=== PATIENT | female | born 1975 | race Caucasian/White ===

== ENCOUNTER 2024-05-14 09:19 | Outpatient (OUT) | payer MEDICAID, SELFPAY ==
--- NOTE | 2024-05-14 09:37 | XR_ITS ---
The [address] [address] Patient Name: TRESSA FLOREZ MRN: [id number] date: 1975 Sex: F Assigned Patient Location: [facility] Current Patient Location: Accession/Order Number: [id number] Exam Date: 05/14/2024 09:40 Report Date: 05/15/2024 07:19 At the request of: DAWIT BLANCHARD Procedure: XR shoulder LT min 2V PROCEDURE: XR shoulder LT min 2V COMPARISON: None. HISTORY: Left Shoulder Pain FINDINGS: BONES:No fracture, acute abnormality, or significant arthropathy. SOFT TISSUES:Negative. No visible soft tissue swelling. EFFUSION:None visible. OTHER: Negative. XR/XR shoulder LT min 2V IMPRESSION: No acute radiographic abnormality Electronically authenticated by: ALEXEY CARNEY Date: 05/15/2024 07:19
== END 2024-05-14 09:20 | disposition home or self-care (01) ==
LOC: RAD 09:24
PROVIDERS: PCP Family Medicine; Visit Provider Nurse Practitioner Family
DX: M25.512 Pain in left shoulder (principal)
CPT/HCPCS: 73030

== ENCOUNTER 2025-05-31 14:58 | Emergency (ER) | payer MEDICAID, SELFPAY ==
--- OUTSIDE RECORDS SUMMARY | 2024-06-09 04:00 | XMS_ITS ---
Author Organization [facility] Address [address] [place] [address] Care Team Providers Care Dragger Name Role Phone Otis Torres Primary Care Provider Corie Bowers Unavailable [phone] REASON FOR VISIT PERIO MAINT Encounters Encounter Location Date Provider Diagnosis [place] [address] [place] [address] 06/09/2024 Corie Bowers Plan Of Treatment Next Appt Details Provider Name:Riya Levine , 07/23/2025 09:40:00 AM, [address], [place], [address], Progress Notes * TRESSA FLOREZ RDOB: [birth year] (49 yo F)Acc No.[id number]:06/09/2024 Patient:?TRESSA FLOREZ :?Corie GoldDOB:1975???Age:48 Y???Sex: FemaleDate:06/09/2024Phone:[phone]:[address] [place], [place]-[address]Pcp:Otis Torres Subjective: * Chief Complaints: * P ERIO MAINT * Electronic signature of Corie Bowers on 05/31/2025 at 03:49 PM ESTSign off status: Pending * Provider: Abhijeet Gold Date: 0 06/09/2024 Generated for Printing/Faxing/eTransmitting on:?05/31/2025 03:49 PM EST
--- OUTSIDE RECORDS SUMMARY | 2025-03-12 04:30 | XMS_ITS ---
Author Organization [facility] Address [address] [place] [address] Care Team Providers Care Barrel Ribs Solderer Name Role Phone Otis Torres Primary Care Provider Cass Brown Unavailable Unavailable REASON FOR VISIT 45 APRO Encounters Encounter Location Date Provider Diagnosis [facility] [address] [place] [address] 03/12/2025 Cass Brown Plan Of Treatment Next Appt Details Provider Name:Riya Levine , 07/23/2025 09:40:00 AM, [address], [place], [address], Progress Notes * TRESSA FLOREZ RDOB: [birth year] (49 yo F)Acc No.[id number]:03/12/2025 Patient:?TRESSA FLOREZ :?Cass KevinDOB:1975???Age:49 Y???Sex: FemaleDate:03/12/2025Phone:[phone]:[address] [place], [place]Why:Otis Torres Subjective: * Chief Complaints: * 4 5 APRO * Electronic signature of Cass Brown on 05/31/2025 at 03:49 PM ESTSign off status: Pending * Provider: Monique Brown Date: Generated for Printing/Faxing/eTransmitting on:?05/31/2025 03:49 PM EST
--- OUTSIDE RECORDS SUMMARY | 2025-04-02 10:30 | XMS_ITS ---
Author Organization [facility] Address [address] [place] [address] Care Team Providers Care Curriculum Coordinator Name Role Phone Otis Torres Primary Care Provider [phone] Cass Artis Unavailable Unavailable REASON FOR VISIT PROPHY EX and BW Encounters Encounter Location Date Provider Diagnosis [facility] [address] [place] [address] 04/02/2025 Cass Brown Plan Of Treatment Next Appt Details Provider Name:Riya Levine , 07/23/2025 09:40:00 AM, [address], [place], [address], Progress Notes * TRESSA FLOREZ RDOB: [birth year] (49 yo F)Acc No.[id number]:04/02/2025 Patient:?TRESSA FLOREZ :?Cass KevinDOB:1975???Age:49 Y???Sex: FemaleDate:04/02/2025Phone:[phone]:[address] [place], [place]-[address]Pcp:Otis Torres Subjective: * Chief Complaints: * P ROPHY EX and BW * Electronic signature of Cass Kevin on 05/31/2025 at 03:49 PM ESTSign off status: Pending * Provider: Monique Brown Date: Generated for Printing/Faxing/eTransmitting on:?05/31/2025 03:49 PM EST
--- OUTSIDE RECORDS SUMMARY | 2025-05-28 10:00 | XMS_ITS | Encounter Summary ---
Author Organization [facility] Address [address] [place] [address] Care Team Providers Care Wharf Tender Head Name Role Phone Randy Rome MD Primary Care Provider Unavail able Reason for Visit * Imaging (Routine) - ClosedSpecialtyDiagnoses / ProceduresReferred By Contact Referred To ContactRadiology Diagnoses Neck pain Cervical radiculopathy DDD (degenerative disc disease), cervical Procedures MR cervical spine wo contrast Alexander Krishnan, DO [address] [place] [address] Phone: tel: fax: [facility] [address] [place] [address] Phone: tel: fax: Referral IDStatusReasonStart DateExpiration DateVisits RequestedVisits [id number]/8/20256/ Encounter Details DateTypeDepartmentCare Team (Latest Contact Info)Yhsjeknogjp95/26/2025 10:00 AM ESTAncillary Procedure [facility] [address] [place] [address] Neck pain; Cervical radiculopathy; DDD (degenerative disc disease), cervical Social History Tobacco UseTypesPacks/DayYears UsedDateSmoking Tobacco: FormerCigarettes Smokeless Tobacco: NeverAlcohol UseStandard Drinks/WeekCommentsYes0 (1 standard drink = 0.6 oz pure alcohol)CommentsUnknownSex and Gender Information ValueDate RecordedSex Assigned at BirthNot on fileLegal KqaIofxov87/15/2023 7:13 PM EDTGender IdentityNot on fileSexual OrientationNot on filedocumented as of this encounter Plan of Treatment DateTypeDepartmentCare Team (Latest Contact Info)Udfdvxdhwcp49/02/2026 9:45 AM ESTOffice Visit [facility] [address] [place] [address] Alexander Krishnan, DO [address] [place] [address] documented as of this encounter Procedures Procedure NamePriorityDate/TimeAssociated DiagnosisCommentsMR CERVICAL SPINE WO BXNCFYKPPzosntm32/26/2025 10:33 AM EST Neck pain Cervical radiculopathy DDD (degenerative disc disease), cervical documented in this encounter Results * MR cervical spine wo contrast (05/28/2025 10:33 AM EST)Anatomical Region LateralityModalitySpine, C-spineMagnetic ResonanceSpecimen (Source)Anatomical Location / LateralityCollection Method / VolumeCollection TimeReceived Time 05/31/2025 11:52 AM EST Impressions 05/31/2025 12:00 PM EST Degenerative changes cervical spine as discussed. ?? Disc protrusion right foraminal region at C6-C7 with moderate right foraminal narrowing. ELECTRONICALLY SIGNED BY: Shawn Butt MD Narrative 05/31/2025 12:00 PM EST EXAMINATION/TECHNIQUE: MR CERVICAL SPINE WO CONTRAST HISTORY: ?? Neck pain. Right radiculopathy. COMPARISON: Radiographs 03/19/2025. RESULT: Counting reference: ??Craniocervical junction. Alignment: ?? Straightening of the cervical lordosis. Bone marrow signal/fracture: ?No evidence for recent fracture. No pathologic marrow infiltration. Craniocervical junction: ?Craniocervical junction is unremarkable. Cord: ??The cervical spinal cord is within normal limits of signal intensity and morphology. Cervical soft tissues: ?? The paraspinal soft tissues are unremarkable. C2-C3: Disc bulge. No significant canal or foraminal narrowing. C3-C4: Disc bulge. Facet/uncovertebral degenerative changes. Mild left foraminal narrowing without significant canal or right foraminal narrowing. C4-C5: Disc bulge. Endplate osteophytes. Facet/uncovertebral degenerative changes. Mild bilateral foraminal narrowing and mild canal narrowing. C5-C6: Disc bulge. Endplate osteophytes. Facet/uncovertebral degenerative changes. Mild to moderatebilateral foraminal narrowing and mild canal narrowing C6-C7: Disc bulge. Superimposed disc protrusion in the right foraminal region. Endplate osteophytes. Facet/uncovertebral degenerative changes. Moderate right and mild to moderate left foraminal narrowing with mild to moderate canal narrowing. C7-T1: Disc bulge. Possible small central zone protrusion. Endplate osteophytes. Facet/uncovertebral degenerative changes. Mild to moderate left foraminal narrowing, mild right foraminal narrowing, mild canal narrowing. Upper thoracic spine: Partially imaged degenerative changes. Procedure Note Shawn Butt MD - 05/31/2025 EXAMINATION/TECHNIQUE: MR CERVICAL SPINE WO CONTRAST HISTORY: Neck pain. Right radiculopathy. COMPARISON: Radiographs 03/19/2025. RESULT: Counting reference: Craniocervical junction. Alignment: Straightening of the cervical lordosis. Bone marrow signal/fracture: No evidence for recent fracture. Nopathologic marrow infiltration. Craniocervical junction: Craniocervical junction is unremarkable. Cord: The cervical spinal cord is within normal limits of signalintensity and morphology. Cervical soft tissues: The paraspinal soft tissues are unremarkable. C2-C3: Disc bulge. No significant canal or foraminal narrowing. C3-C4: Disc bulge. Facet/uncovertebral degenerative changes. Mild leftforaminal narrowing without significant canal or right foraminalnarrowing. C4-C5: Disc bulge. Endplate osteophytes. Facet/uncovertebral degenerative changes. Mild bilateral foraminal narrowing and mild canal narrowing. C5-C6: Disc bulge. Endplate osteophytes. Facet/uncovertebral degenerative changes. Mild to moderate bilateral foraminal narrowing and mild canalnarrowing C6-C7: Disc bulge. Superimposed disc protrusion in the right foraminalregion. Endplate osteophytes. Facet/uncovertebral degenerative changes.Moderate right and mild to moderate left foraminal narrowing with mild tomoderate canal narrowing. C7-T1: Disc bulge. Possible small central zone protrusion. Endplateosteophytes. Facet/uncovertebral degenerative changes. Mild to moderateleft foraminal narrowing, mild right foraminal narrowing, mild canalnarrowing. Upper thoracic spine: Partially imaged degenerative changes. IMPRESSION: Degenerative changes cervical spine as discussed. Disc protrusion right foraminal region at C6-C7 with moderate rightforaminal narrowing. ELECTRONICALLY SIGNED BY: Shawn Butt MD Authorizing ProviderResult TypeResult StatusDavid A Pocos DOIMG MRI PROCEDURES Final Result documented in this encounter Visit Diagnoses Diagnosis Neck pain Cervicalgia Cervical radiculopathy Brachial neuritis or radiculitis nos DDD (degenerative disc disease), cervical Degeneration of cervical intervertebral disc documented in this encounter Care Teams Team MemberRelationshipSpecialtyStart DateEnd Date Randy Rome MD [address] [address] PCP - GeneralFamily Vtdyhsqc17/5/25documented as of this encounter
[2025-05-31 15:04] VITALS: BP 142/95; PULSE 97; TEMP 36.9; O2SAT 96; BMI 45.2
[2025-05-31 15:34] LABS: Glucose Urine UA NEGATIVE (NEGATIVE)
[2025-05-31 15:35] LABS: HCG Qualitative Urine* NEGATIVE (NEGATIVE)
--- OUTSIDE RECORDS SUMMARY | 2025-05-31 15:49 | XMS_ITS | Encounter Summary ---
Author Organization [facility] Address [address] [facility] [place] [address] Care Team Providers Care Vascular Sonographer Name Role Phone Randy Rome MD Primary Care Provider Unavail able Encounter Details DateTypeDepartmentCare Team (Latest Contact Info)Mtkvvcbseqh14/26/2025Travel Social History Tobacco UseTypesPacks/DayYears UsedDateSmoking Tobacco: FormerCigarettes Smokeless Tobacco: NeverAlcohol UseStandard Drinks/WeekCommentsYes0 (1 standard drink = 0.6 oz pure alcohol)CommentsUnknownSex and Gender Information ValueDate RecordedSex Assigned at BirthNot on fileLegal BknAnhvwe29/15/2023 7:13 PM EDTGender IdentityNot on fileSexual OrientationNot on filedocumented as of this encounter Plan of Treatment DateTypeDepartmentCare Team (Latest Contact Info)Rdmelksmgeu93/02/2026 9:45 AM ESTOffice Visit [facility] [address] [facility] [address] [place] [address] Alexander Krishnan DO [address] [place] [address] documented as of this encounter Visit Diagnoses Not on filedocumented in this encounter Care Teams Team MemberRelationshipSpecialtyStart DateEnd Date Randy Rome MD [address] [address] PCP - GeneralFamily Kqlhapzm83/5/25documented as of this encounter
--- OUTSIDE RECORDS SUMMARY | 2025-05-31 15:49 | XMS_ITS | Clinical Summary ---
Author Organization [facility] Address [address], [address] [place] [address] Care Team Providers Care Private Branch Exchange Operator Name Role Phone Juan Fernando MD Primary Care Provider [phone] Allergies No known active allergies Medications MedicationSigDispense QuantityRefillsLast FilledStart DateEnd DateStatus levothyroxine (SYNTHROID) 175 MCG tablet Take 175 mcg by mouth DailyActive loratadine (CLARITIN) 10 MG tablet Take 10 mg by mouth dailyActive ibuprofen (ADVIL;MOTRIN) 200 MG tablet Take 400 mg by mouth every 6 hours as needed for PainActive Active Problems ProblemNoted DateDiagnosed DateHistory of tobacco use03/08/2020Obesity (BMI 35.0-39.9 without comorbidity)02/01/2020Other specified wuwxrlmzilcdkk54/31/2020 Essential ojutkpaibeuh88/31/2020 Overview (02/01/2020): Not currently requiring treatment following intentional weight loss. Resolved Problems ProblemNoted DateDiagnosed DateResolved DatePostoperative follow-up03/16/2020 05/06/2020Recurrent ventral etjaah89Recurrent incisional kpxpzo50Tobacco use Family History Medical HistoryRelationNameCommentsDiabetesFatherHeart DiseaseFatherHigh Blood PressureMotherRelationNameStatusCommentsFatherAliveMotherAlive Social History Tobacco UseTypesPacks/DayYears UsedDateSmoking Tobacco: FormerCigarettesQuit: 02/21/2020Smokeless Tobacco: NeverAlcohol UseStandard Drinks/WeekCommentsYes0 (1 standard drink = 0.6 oz pure alcohol)RareAUDIT-CAnswerDate RecordedQ1: How often do you have a drink containing alcohol?Never02/01/2020Average Number of Drinks Not on file02/01/2020Frequency of Binge DrinkingNot on file02/01/2020 CommentsNoSex and Gender InformationValueDate RecordedSex Assigned at BirthNot on fileLegal EjvYqmetw90/24/2020 1:04 PM EDTGender IdentityNot on fileSexual OrientationNot on file Last Filed Vital Signs Vital SignReadingTime TakenCommentsBlood Evrgzvzw086/7504/06/2020 2:03 PM EST Bfusq135004/06/2020 2:03 PM CBOMbltnxpzgpg73.7 ??C (71 ??F)03/16/2020 3:46 PM EDT Respiratory Xvat6162 11:29 AM EDTOxygen Hqmyfywljz16%04/06/2020 2:03 PM ESTInhaled Oxygen Concentration--Uxuhvu606.2 kg (243 lb)04/06/2020 2:03 PM EST Srhodg152.3 cm (5' 9 )04/06/2020 2:03 PM ESTBody Mass Index35.8804/06/2020 2:03 PM EST Plan of Treatment Not on file Medical Devices ImplantedTypeAreaManufacturerDevice IdentifierShelf Expiration DateModel / Serial / LotMesh Surg Hernia Repair 30 Cm Inguinal Macroporous Open Implanted:Qty: 1 on 03/10/2020 [facility]/A: AbdomenMEDTRONIC [facility]-PM07/31/[id number] / / [id number] Insurance Advance Directives * Full Code (Latest Code Status on File) Date ActivatedDate ZzpbfdinexxEsizdfvt12/8/2020 12:07 03/11/2020 4:44 PM Care Teams Team MemberRelationshipSpecialtyStart DateEnd Date Juan Fernando MD PCP - General02/01/20
--- OUTSIDE RECORDS SUMMARY | 2025-05-31 15:49 | XMS_ITS | Clinical Summary ---
Author Organization [facility] Address [address] [place] [address] Care Team Providers Care Application Lead Name Role Phone Randy Rome MD Primary Care Provider Unavail able Allergies No known active allergies Medications MedicationSigDispense QuantityRefillsLast FilledStart DateEnd DateStatus levothyroxine (Synthroid, Levoxyl) 175 MCG tablet Take 175 mcg by mouth DailyActive omega-3 (fish oil) 1000 MG capsule Take 1 capsule by mouth Daily5Active loratadine (Claritin) 10 MG tablet Take 10 mg by mouth DailyActive VITAMIN D PO Take by mouthActive Ascorbic Acid (vitamin C) 250 MG tablet Take 250 mg by mouth DailyActive BABY ASPIRIN PO Take by mouthActive magnesium 30 MG tablet Take 30 mg by mouth in the morning and 30 mg before bedtime.Active cyanocobalamin (Vitamin B-12) 100 MCG tablet Take 100 mcg by mouth DailyActive DULoxetine (Cymbalta) [address] capsule Take 60 mg by mouth Daily Do not crush or chew.Active Active Problems No known active problems Encounters DateTypeDepartmentCare AnqmVgjppgpvnrg23/26/2025 10:00 AM ESTAncillary Procedure [facility] [address] [address] Neck pain; Cervical radiculopathy; DDD (degenerative disc disease), ukqjzxxk25/26/1876Bzzyqz16/05/2025 1:30 PM EST Office Visit [facility] [address] [place] [phone] Alexander Krishnan DO Impingement syndrome of right shoulder (Primary Dx); Neck pain; Cervical qbsfsdjpynwzl32/05/2025 8:00 AM ESTTreatment [facility] [address] [facility] [address] [place] [address] Kelbley, Caitlyn, REPAIRER SASH AND DOOR Impingement syndrome of right shoulder (Primary Dx); Neck pain; Radiculopathy, /05/2025amboo flowsheet [facility] [address] [facility] [address] [place] [address] Kelbley, Caitlyn, REPAIRER SASH AND DOOR 05/07/20256055Gfxnsb55/03/2025 8:30 AM ESTTreatment [facility] [address] [facility] [address] [place] [address] Brpaula, Gold, REPAIRER SASH AND DOOR Impingement syndrome of right shoulder (Primary Dx); Neck pain; Radiculopathy, fsixjimc76/03/2025amboo flowsheet [facility] [address] [facility] [address] [place] [address] BrGold mitchell, REPAIRER SASH AND DOOR 05/05/20251678Tajshv73/26/2025 9:00 AM ESTTreatment [facility] [address] [facility] [address] [place] [address] Kelbley, Caitlyn, REPAIRER SASH AND DOOR Impingement syndrome of right shoulder (Primary Dx); Neck pain; Radiculopathy, vlrtepct13/26/2025amboo flowsheet [facility] [address] [facility] [address] [place] [address] Rhysbley, Caitlyn, REPAIRER SASH AND DOOR 04/28/20256780Azreva58/21/2025 11:30 AM ESTTreatment [facility] [address] [facility] [address] [place] [address] Gold Ansari, REPAIRER SASH AND DOOR Impingement syndrome of right shoulder (Primary Dx); Neck pain; Radiculopathy, jzrvyyeq53/21/2025amboo flowsheet [facility] [address] [facility] [address] [place] [address] Gold Ansari, REPAIRER SASH AND DOOR 04/23/20254662Podidg09/19/2025 8:00 AM ESTTreatment [facility] [address] [facility] [address] [place] [address] Gold Ansari, REPAIRER SASH AND DOOR Impingement syndrome of right shoulder (Primary Dx); Neck pain; Radiculopathy, /19/2025amboo flowsheet [facility] [address] [facility] [address] [place] [address] Gold Ansari, REPAIRER SASH AND DOOR 04/21/20252978Dylowj78/14/2025 11:30 AM ESTTreatment [facility] [address] [facility] [address] [place] [address] Gold Ansari, REPAIRER SASH AND DOOR Impingement syndrome of right shoulder (Primary Dx); Neck pain; Radiculopathy, xzhnizne02/14/2025 9:30 AM ESTOffice Visit [facility] [address] [place] [address] Alexander Krishnan, DO Cervical radiculopathy (Primary Dx); Morbid obesity (CMS-HCC); Impingement syndrome of right htzfwisr44/14/2025 flowsheet [facility] [address] [place] [address] Alexander Krishnan, 04/16/20250254Zcwzgk00/07/2025 10:30 AM ESTTreatment [facility] [address] [facility] [address] [place] [address] Pat Escoto, EVITA Impingement syndrome of right shoulder (Primary Dx); Neck pain; Radiculopathy, /07/2025amboo flowsheet [facility] [address] [facility] [address] [place] [address] Pat Escoto, REPAIRER SASH AND DOOR 04/09/20259020Qrbjbo76/04/2025 10:00 AM ESTEvaluation [facility] [address] [facility] [address] [place] [address] Yvette Manley, PT Impingement syndrome of right shoulder (Primary Dx); Neck pain; Radiculopathy, owmnwmui60/04/2025Plan of Care Documentation [facility] [address] [facility] [address] [place] [address] 04/06/2025amboo flowsheet [facility] [address] [facility] [address] [place] [address] Yvette Manley PT 04/06/20251360Bxrlji78/17/2025 9:00 AM EDTAncillary Procedure [facility] [address] [place] [address] 03/19/2025 9:00 AM EDTOffice Visit [facility] [address] [place] [address] Alexander Krishnan DO Impingement syndrome of right shoulder (Primary Dx); Neck pain; Cervical radiculopathy; DDD (degenerative disc disease), cervical; Morbid obesity ([facility]-HCC)03/19/2025 8:00 AM EDTAncillary Procedure [facility] [address] [place] [address] 03/19/2025Travelfrom Last 3 Months Family History Medical HistoryRelationNameCommentsHeart diseaseFatherDiabetesMotherRelationName StatusCommentsFatherDeceasedMaternal GrandfatherDeceasedMaternal Grandmother DeceasedMotherAlive Social History Tobacco UseTypesPacks/DayYears UsedDateSmoking Tobacco: FormerCigarettes Smokeless Tobacco: Never Tobacco Cessation:Counseling Given: Not Answered Alcohol UseStandard Drinks/WeekCommentsYes0 (1 standard drink = 0.6 oz pure alcohol)CommentsUnknownSex and Gender InformationValueDate RecordedSex Assigned at BirthNot on fileLegal KdoQhsxid41/15/2023 7:13 PM EDTGender Identity Not on fileSexual OrientationNot on file Last Filed Vital Signs Vital SignReadingTime TakenCommentsBlood Ujkbdakc273/8408 12:00 PM EDT Pulse--Temperature--Respiratory Rate--Oxygen Saturation--Inhaled Oxygen Concentration--Culbna281 kg (302 lb)05/07/2025 1:16 PM BXVNskiac483.8 cm (5' 10 )05/07/2025 1:16 PM ESTBody Mass Index43.33107/08/2024 1:16 PM EST Plan of Treatment DateTypeDepartmentCare Team (Latest Contact Info)Yrccolztskd53/02/2026 9:45 AM ESTOffice Visit [facility] [address] [place] [address] Alexander Krishnan, [address] [place] [address] Health MaintenanceDue DateLast DoneCommentsCT Pbbmzohczljq67/13/1976FIT-DNA 1975FIT1975FOBT1975 4146Zezsoqqlduxev42/13/1976Pap Smear12/13/1996 Cervical Cancer Wuzogelgz49/13/2006HPV/Famwls2612/13/20050722Xvfxhsonl01/13/2016 Influenza Vaccine (#1)6950Blhqanlczyv904Colorectal Cancer Icoonnyzo85/23/2034Pneumococcal Vaccine: Pediatrics (0 to 5 Years) and At-Risk Patients (6 to 64 Years)Aged OutNo longer eligible based on patient's age to complete this topic Procedures Procedure NamePriorityDate/TimeAssociated DiagnosisCommentsMR CERVICAL SPINE WO DSNKYCHJPcqnrxn34/26/2025 10:33 AM EST Neck pain Cervical radiculopathy DDD (degenerative disc disease), cervical XR CERVICAL SPINE 2-3 ZILMHAyykzqj38/17/2025 8:55 AM EDT Neck pain XR SHOULDER 2+ VIEWS MCJCLRtnjvgp38/17/2025 7:49 AM EDT Impingement syndrome of right shoulder from Last 3 Months Results * MR cervical spine wo contrast [...] MD Authorizing ProviderResult TypeResult StatusDavid A Pocos [facility] PROCEDURES Final Result * XR cervical spine 2 or 3 views (03/19/2025 8:55 AM EDT)Anatomical Region LateralityModalitySpine, C-spineRadiographic ImagingSpecimen (Source) Anatomical Location / LateralityCollection Method / VolumeCollection Time Received Time Narrative 03/22/2025 1:10 PM EDT Imaging Result: Examination of the x-rays AP, lateral of the cervical spine, total of two views with permanent images are saved to the record does show rather significant degenerative disc change at C6-7. ?No evidence of fracture. ? Authorizing ProviderResult TypeResult StatusDavid A Pocos DOIMG XR PROCEDURES Final Result * XR shoulder 2+ views right (03/19/2025 7:49 AM EDT)Anatomical RegionLaterality ModalityUpper Extremities, ShoulderRightRadiographic ImagingSpecimen (Source) Anatomical Location / LateralityCollection Method / VolumeCollection Time Received Time Narrative 03/22/2025 1:10 PM EDT Imaging Result: X-rays of the shoulder AP and lateral total of two views with permanent images are saved to the record does show evidence of mild osteoarthritis. ?? The acromiohumeral interval is well maintained. ?? Authorizing ProviderResult TypeResult StatusDavid A Pocos DOIMG XR PROCEDURES Final Result from Last 3 Months Insurance Care Teams Team MemberRelationshipSpecialtyStart DateEnd Date Randy Rome MD [address] [place] [address] [facility]
--- OUTSIDE RECORDS SUMMARY | 2025-05-31 15:49 | XMS_ITS | Patient Health Record ---
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 Name Role Phone Otis Torres Primary Care Provider [phone] Cass Brown Unavailable Unavailable Sanam Horvath Unavailable Corie Bowers Unavailable [phone] Reason For Referral No Information Encounters Encounter Location Date Provider Diagnosis [facility] [address] [address] 11/05/2024 Sanam Pickens [facility] [address] [place] [address]/28/2025erma Bowers Encounter for dental examination and cleaning with abnormal findings Z01.21 and Other dental procedure status Z98.818 Assessments Encounter Date Diagnosis (ICD Code) Assessment Notes Treatment Notes Treatment Clinical Notes Section Notes 08/28/2024 Encounter for dental examination and cleaning with abnormal findings (ICD-10 - Z01.21) 08/28/2024Other dental procedure status (ICD-10 - Z98.818) Plan Of Treatment Next Appt Details Provider Name:Riya Levine , 07/23/2025 09:40:00 AM, [address], [address], Insurance Providers Payer Name Payer Address Payer Phone Subscriber Number Group Number Insured Name Patient Relationship to Insured Coverage Start Date Coverage End Date Dental [employer] DQ [address] [place] [address] [phone] [id number], MONICASelf - patient is the /06/2023 Dental Wrap [facility] HumanaPO [address] [place] [phone] [id number] FLOREZ - patient is the [id number] 2023
[2025-05-31 15:54] LABS: Cast Seen? NONE SEEN #/LPF (NONE SEEN); Crystals Seen? None Seen #/HPF (None Seen); Urine Culture Indicated YES-FRMC
--- NOTE | 2025-05-31 16:03 | ED_ITS ---
HPI HPI - General Adult General Chief complaint: Abdominal Pain Stated complaint: ABDOMINAL & BACK PAIN, FEVER, PAIN WHEN URINATES Time Seen by Provider: 05/31/25 15:55 Source: patient Mode of arrival: walk-in Limitations: no limitations History of Present Illness HPI narrative: 49-year-old female presenting for dysuria and frequency. Her lower back has been hurting in the midline without any injury. No fever or gross hematuria. She went to an urgent care who asked her to come here to get checked. She has no history of kidney stone. Related Data Previous Rx's ?Medication ?Instructions ?Recorded cephalexin 500 mg capsule 500 mg PO TID 7 days #21 cap s 05/31/25 phenazopyridine 200 mg tablet 200 mg PO Q8H PRN pain # 15 tabs 05/31/25 (Pyridium) Allergies Allergy/AdvReac Type Severity Reaction Status Date / Time No Known Drug Allergies Allergy Verified 05/31/25 15:04 Opioid HPI Opioid Management Most Recent Opioid Data: Last Pain Scale 5 Today, 15:04 Review of Systems ROS Narrative A ten point review of systems is negative except as noted above. PFSH PFSH Social History Little interest or pleasure in doing things: not at all Feeling down, depressed, or hopeless: not at all Exam Narrative Exam Narrative: Nurses note and vital signs reviewed General:The patient appears well and in no apparent distress.Patient is resting comfortably on cart. Skin:Warm, dry, no pallor noted.There is no rash noted. Head:Normocephalic, atraumatic Eye: Normal conjunctiva, no drainage Ears, Nose, Mouth, and Throat: oral mucosa is moist. Nares patent. Cardiovascular:Regular Rate and Rhythm Respiratory:Patient is in no distress, no accessory muscle use, lungs are clear to auscultation, no wheezing, rales or rhonchi Back:non-tender, no CVA tenderness bilaterally to percussion. GI: Soft and nontender Musculoskeletal: The patient has no evidence of calf tenderness, no pitting edema, symmetrical pulses noted bilaterally Neurological:A&O, normal speech Psychiatric:Cooperative Constitutional Vital Signs, click to edit/add: Last Vital Signs Temp 98.4 F 05/31/25 15:04 Pulse 97 H 05/31/25 15:04 Resp 20 05/31/25 15:04 BP 142/95 H 05/31/25 15:04 Pulse Ox 96 05/31/25 15:04 O2 Del Method Room Air 05/31/25 15:04 Course Vital Signs Vital signs: Vital Signs Temperature 98.4 F 05/31/25 15:04 Pulse Rate 97 H 05/31/25 15:04 Respiratory Rate 20 05/31/25 15:04 Blood Pressure 142/95 H 05/31/25 15:04 Pulse Oximetry 96 05/31/25 15:04 Oxygen Delivery Method Room Air 05/31/25 15:04 Temperature 98.4 F 05/31/25 15:04 Pulse Rate 97 H 05/31/25 15:04 Respiratory Rate 20 05/31/25 15:04 Blood Pressure 142/95 H 05/31/25 15:04 Pulse Oximetry 96 05/31/25 15:04 Oxygen Delivery Method Room Air 05/31/25 15:04 Medical Decision Making MDM Narrative Medical decision making narrative: UTI is identified. She was started on Keflex and Pyridium here and prescribe same. Treatment diagnosis and follow-up were discussed with the patient. Have no clinical suspicion of pyelonephritis or kidney stone. Differential Diagnosis Differential Diagnosis: UTI, kidney stone, pyelonephritis Lab Data Lab results reviewed: Yes I reviewed the patient's lab results Labs: Lab Results 05/31/25 Range/Units 15:20 Urine Color Lt. yellow (YELLOW) Urine Clarity Sl cloudy (CLEAR) Urine pH 5.5 (5.0-9.0) Ur Specific Condon 1.020 (1.005-1.025) Urine Protein 30 A (NEG/TRACE) mg/dL Urine Glucose (UA) Negative (NEGATIVE) mg/dL Urine Ketones Negative (NEGATIVE) mg/dL Urine Occult Blood Moderate A (NEGATIVE) Urine Nitrite Positive A (NEGATIVE) Urine Bilirubin Negative (NEGATIVE) Urine Urobilinogen 0.2 (0.2-1.0) EU/dL Ur Leukocyte Esterase Large A (NEGATIVE) Urine RBC 10-20 A (0-2) #/HPF Urine WBC 75-100 A (NONE SEEN) #/HPF Ur Squamous Epith Cells Few A (NONE/RARE) #/LPF Urine Crystals None seen (None Seen) #/HPF Urine Bacteria Moderate A (NONE SEEN) #/HPF Urine Casts None seen (NONE SEEN) #/LPF Urine Mucus Trace A (NONE SEEN) Ur Culture Indicated? Yes-[facility] [place] Urine HCG, Qual Negative (NEGATIVE) Discharge Plan Discharge Chief Complaint: Abdominal Pain Clinical Impression: Urinary tract infection Patient Disposition: Home, Self-Care Time of Disposition Decision: 16:02 Condition: Good Mode of Transportation: Private Vehicle Prescriptions / Home Meds: New cephalexin 500 mg capsule 500 mg PO TID 7 Days Qty: 21 0RF phenazopyridine [Pyridium] 200 mg tablet 200 mg PO Q8H PRN (Reason: pain) Qty: 15 0RF Print Language: Amharic Instructions: Urinary Tract Infection in Women (ED) Referrals: LARA SANCHEZ [Primary Care Provider, Family Practice] - 1 week
[2025-05-31] MEDS: PHENAZOPYRIDINE 100 MG TABLET 200 MG PO (16:10)
[2025-05-31] MEDS: CEPHALEXIN 500 MG CAPSULE PO (16:10)
--- OUTSIDE RECORDS SUMMARY | 2025-05-31 16:36 | XMS_ITS | CCD ---
Author Organization [facility] Care Team Providers Care Rn Or Lpn Name Role Phone Lara Sanchez Primary Care Provider ALTHEA LING Referring Unavailable DANIEL, LARA Primary Care Unavailable ALTHEA LING Admitting Unavailable ALTHEA LING Attending Unavailable LARA SANCHEZ Primary Care Unavailable ALTHEA LING Referring Unavailable DANIEL, LARA Primary Care Unavailable SALLY VILLEGAS Referring Unavailable DANIEL LARA Primary Care Unavailable ALTHEA LING Referring Unavailable DANIEL LARA Primary Care Unavailable ALTHEA LING Referring Unavailable DANIEL, LARA Primary Care Unavailable ALTHEA LING Referring Unavailable ROSS, LARA Primary Care Unavailable DANIEL LARA Admitting Unavailable LARA SANCHEZ Attending Unavailable DANIEL, LARA Primary Care Unavailable DANIEL, LARA Primary Care Unavailable JIMMY, DR LOWRY Attending Unavailable JIMMY, DR LOWRY Consulting Unavailable JIMMY, DR LOWRY Admitting Unavailable Brent Liu Consulting Unavailable DANIEL, LARA Primary Care Unavailable LIANE, DR FERNANDO Danielle Consulting Unavailable DANIEL LARA Admitting Unavailable LARA SANCHEZ Attending Unavailable LARA SANCHEZ Consulting Unavailable Lara Sanchez Primary Care Physician NIKKO Walden Attending Provider [phone] Vikki Walden Unavailable Vikki Walden Attending Unavailable Vikki Walden Admitting Unavailable NO FAMILY, PHYSICIAN Primary Care Unavailable Lara Sanchez Primary Care Physician [phone] Lara Sanchez Primary Care Physician [phone] DAWIT BLANCHARD Attending Unavailable DAWIT BLANCHARD Admitting Unavailable CORBY BLANCHARD Attending UnavailCORBY Erazo Admitting UnavailCORBY Erazo Attending Unavailjennifer BLANCHARD, CORBY Owen Attending UnavailLara Higgins MD Primary Care Provider [phone] DAWIT BLANCHARD Attending Unavailable Judy, Perlita L Attending Unavailable Lara Sanchez. Attending Unavailable Lara Sanchez. Attending Unavailable SANTO, DAWIT Owen Admitting Unavailable SANTO, DAWIT Owen Attending Unavailable Judy, Perlita L Admitting Unavailable Judy, Perlita L Attending Unavailable Judy, Perlita L Admitting Unavailable Judy, Perlita L Attending Unavailable Lara Sanchez EJignesh Attending Unavailable Mouchli, Mohamad A. Referring Unavailable MouchliAbdifatah A. Attending Unavailable Abdifatah Sanchez A. Admitting Unavailable Lara Sanchez Attending Unavailable SANTO, DAWIT Owen Attending Unavailable SANTO, DAWIT Owen Attending Unavailable SANTO, DAWIT Owen Attending Unavailable POCOS, ALEXEY Owen Attending Unavailable LARA SANCHEZ Referring Unavailable BLACKSTONBEV Attending Unavailable POCOS, ALEXEY Owen Referring Unavailable BLACKSTONBEV T Attending Unavailable POCOS, ALEXEY Owen Referring Unavailable BRINKMORENO Attending Unavailable POCOS, ALEXEY Owen Referring Unavailable POCOS, ALEXEY Owen Attending Unavailable BRINK, MORENO Attending Unavailable POCOS, ALEXEY Owen Referring Unavailable KELBLEYCAITLYN Attending Unavailable POCOS, ALEXEY Owen Referring Unavailable BRINKMORENO Attending Unavailable POCOS, ALEXEY Owen Referring Unavailable BRINKMORENO Attending Unavailable POCOS, ALEXEY Owen Referring Unavailable BRINKMORENO Attending Unavailable POCOS, ALEXEY Owen Referring Unavailable BLACKSTONBEV Attending Unavailable POCOS, ALEXEY Owen Referring Unavailable KELBLEYCAITLYN Attending Unavailable POCOS, ALEXEY Owen Referring Unavailable KELCAITLYN BOOKER Attending Unavailable POCOS, ALEXEY Owen Referring Unavailable POCOS, ALEXEY Owen Referring Unavailable POCOS, ALEXEY Owen Attending Unavailable POCOS, ALEXEY Owen Referring Unavailable YVETTE MANLEY Attending Unavailable POCOS, ALEXEY Owen Referring Unavailable HUMA ESCOTO Attending Unavailable POCOS, ALEXEY Owen Referring Unavailable Allergies Allergy ClassificationReported Allergen(s)Allergy TypeDate of OnsetReaction(s) Facility (5 sources)No Known Medication Allergies; Translations: [No Known Medication Allergies]Propensity to adverse reactions (disorder)[facility] Repository Medications Current Medications MedicationDrug Class(es)DatesSig (Normalized)Sig (Original)acetaminophen 500 mg oral tablet (2 sources)Start: 05-09-2022 End: 61-22-6212luoo 1 tablet by mouth every six hours as needed for pain acetaminophen 500 mg Tab 500 mg = 1 tab(s), Oral, q6hr, take as needed for fever/pain, X 7 day(s), # 28 tab(s), Refills(s) 0, Pharmacy: [facility]/pharmacy #[id number], 178, cm, 05/09/22 15:08:00 EST, Height/Length Dosing, 122.5, kg, 05/09/22 15:08:00 EST, Weight Dosing Start Date: 05/09/22 Stop Date: 05/16/22 Status: OrderedStart: 01-01-1694vfla 1 dose by mouth four times mg, Oral, EVERY 6 HOURS SCHEDULED (4 times per day), First dose on [facility] 03/10/20 at 1215 Maximum d ose of acetaminophen is 4000 mg from all sources in 24 hours. Post-ynary852408 200 actuat albuterol 0.09 mg/actuat metered dose inhaler (1 source)beta2-Adrenergic AgonistStart: 07-67-5107vyoa 2 puff(s) by inhalation four times daily as neededAlbuterol Sulfate HFA 108 (90 Base) MCG/ACT 2 puffs Inhalation 4 times a day prn Apr, Activealuminum hydroxide 40 mg/ml / magnesium hydroxide 40 mg/ml / simethicone 4 mg/ml oral suspension (1 source)Start: 00-87-3561bxqtctyz & magnesium hydroxide-simethicone (MAALOX) 200-200-20 MG/5ML suspension 30 mLamoxicillin 875 mg / clavulanate 125 mg oral tablet (1 source)Penicillin-class AntibacterialStart: 67-36-1726cese 1 tablet by mouth every twelve hoursAmoxicillin-Pot Clavulanate 875-125 MG 1 tablet Orally every 12 hrs for 10 day(s) Apr, Activeascorbic acid 500 mg oral tablet (20 sources)Vitamin CStart: 18-99-4149lrbm 500 mg by mouth once dailyVitamin C 500 mg, Oral, Daily, Refills(s) 0, Prophylaxis Start Date: 02/06/24 Status: Ordered Repeat number: 1Start: 24-64-5456Xdpudzl C Daily, Refills(s) 0 Start Date: 02/06/24 Status: Orderedtake 1 tablet by mouth once dailyAscorbic Acid (vitamin C) 250 MG tablet Take 250 mg by mouth Daily Activeaspirin 81 mg delayed release oral tablet (20 sources)Platelet Aggregation Inhibitor, Nonsteroidal Anti-inflammatory Drug Start: 18-53-6436awxy 1 tablet by mouth once dailyaspirin 81 mg Oral EC Tab 81 mg = 1 tab(s), Oral, Daily, # 30 tab(s), Refills(s) 0, Prophylaxis Start Date: 04/11/22 Status: Ordered Quantity: 30.0 Unit: tab(s) Repeat number: 1BABY ASPIRIN PO Take by mouth ActiveAspirin 81 ActiveAzithromycin 3 Day Dose Pack 500 mg oral tablet (6 sources)Start: 82-88-4991Omfcmbiciafk 3 Day Dose Pack 500 mg oral tablet 500 mg = 1 tab(s), Oral, Daily, # 3 tab(s), Refills(s) 0, [id number] Start Date: 04/11/22 Status: Orderedbenzonatate 100 mg oral capsule (2 sources)Non-narcotic AntitussiveStart: 05-14-2024 End: 78-98-6906vdon 1 capsule by mouth three times dailyTessalon 100 mg Cap 100 mg = 1 cap(s), Oral, TID, X 7 day(s), # 21 cap(s), Refills(s) 0, [id number], cm, 05/14/24 8:08:00 EST, Height/Length Dosing, 135.9, kg, 05/14/24 8:08:00EST, Weight Dosing Start Date: 05/14/24 Stop Date: 05/21/24 Status: OrderedStart: 06-25-2022 End: 65-81-0126pfbz 1 capsule by mouth three times dailybenzonatate 200 mg oral capsule 200 mg = 1 cap(s), Oral, TID, X 7 day(s), # 21 cap(s), Refills(s) 0, Pharmacy: [facility]/pharmacy #[id number], 178, cm, 06/25/22 14:55:00 EST, Height/Length Dosing, 125.6, kg, 06/25/22 14:55:00 EST, Weight Dosing Start Date: 06/25/22 Stop Date: 07/02/22 Status: Kytoqfz89 hr dextromethorphan polistirex 6 mg/ml extended release suspension (1 source)Uncompetitive Y-kvpyvx-N-aspartate Receptor Antagonist, Sigma-1 AgonistStart: 05-09-2022 End: 64-75-5153eqeg 60 mg by mouth every twelve hoursDelsym 12 Hour Cough Relief 30 mg/5 mL oral suspension, extended release 60 mg = 10 mL, Oral, q12hr, X 7 day(s), # 140 mL, Refills(s) 0, Pharmacy: [facility]/pharmacy #[id number], 178, cm, 05/09/22 15:08:00 EST, Height/Length Dosing, 122.5, kg, 05/09/22 15:08:00 EST, Weight Dosing Start Date: 05/09/22 Stop Date:05/16/22 Status: Ordereddocosahexaenoic acid 120 mg / eicosapentaenoic acid 180 mg oral capsule (20 sources)Start: 70-35-8469uqfz 1 capsule by mouth once dailyomega-3 (fish oil) 1000 MG capsule Take 1 capsule by mouth Daily 06/11/2024 Active0.3 ml enoxaparin sodium 100 mg/ml prefilled syringe (1 source)Low Molecular Weight HeparinStart: 59-98-3207ykvmst 30 mg by subcutaneous injection twice daily, then inject 30 mg by subcutaneous injection twice daily30 mg, Subcutaneous, 2 TIMES DAILY, First dose on Sat03/11/20 at 0900 Patient weight is between 101-149kg. For prophylaxis with Enoxaparin, Pharmacy adjusted the dose to account for the patient's increased body weight in accordance with hospital approved protocol. The dose has been changed to 30mg BID. Post-opfamotidine 20 mg oral tablet (2 sources)Histamine-2 Receptor AntagonistStart: 77-44-2716yjcddabhmd (PEPCID) tablet 20 mgStart: 03-10-2020 End: 98-56-041271 mg, Intravenous, 2 TIMES DAILY, First dose on Sat03/10/20 at 1230 Administer over 2 minutes. Post-opFish Oils (2 sources)Start: 07-63-6285yafc 1 capsule by mouth once dailyOmega-3 Fish Oil 1000 mg oral capsule 1,000 mg = 1 cap(s), Oral, Daily, # 120 cap(s), Refills(s) 0,[id number], cm, 07/09/24 8:22:00 EST, Height/Length Dosing, 136.9, kg, 07/09/24 8:22:00 EST, Weight Dosing Start Date: 07/09/24 Status: Ordered Quantity: 120.0 Unit: cap(s) Repeat number: 112 hr guaiFENesin 600 mg extended release oral tablet (1 source)Start: 05-09-2022 End: 46-87-8506tqsc 1 tablet by mouth every twelve hoursguaiFENesin 600 mg ER Tab 600 mg = 1 tab(s), Oral, q12hr, X 10 day(s), # 20 tab(s), Refills(s) 0, Ph armacy: [facility]/pharmacy #[id number], 178, cm, 05/09/22 15:08:00 EST, Height/Length Dosing, 122.5, kg, 05/09/22 15:08:00 EST, Weight Dosing Start Date: 05/09/22 Stop Date: 05/19/22 Status: OrderedHYDROmorphone (DILAUDID) injection 0.25 mg (1 source)Start: 18-84-8587ICQHVmgfnwran (DILAUDID) injection 0.25 mgibuprofen 200 mg oral tablet (4 sources)Nonsteroidal Anti-inflammatory Drugtake 2 tablets by mouth every six hours as needed for painibuprofen (ADVIL;MOTRIN) 200 MG tablet Take 400 mg by mouth every 6 hours as needed for Pain 0 Activelevothyroxine sodium 0.175 mg oral tablet (20 sources)l-ThyroxineStart: 44-86-2686ouhe 1 tablet by mouth once daily levothyroxine 175 mcg (0.175 mg) Tab See Instructions, TAKE 1 TABLET BY MOUTH ONCE DAILY, # 90 tab(s), Refills(s) 0, Pharmacy: [facility] STORE [id number], 178, cm, 07/09/24 8:22:00 EST, Height/Length Dosing, 136.9, kg, 07/09/24 8:22:00 EST, Weight Dosing Start Date: 09/11/24 Status: Ordered Quantity: 90.0 Unit: tab(s) Repeat number: 1Start: 54-66-1563fazh 1 tablet by mouth once dailylevothyroxine 175 mcg (0.175 mg) Tab See Instructions, TAKE 1 TABLET BY MOUTH ONCE DAILY, # 90 tab(s), Refills(s) 3, Pharmacy: [facility] STORE [id number], 178, cm, 04/11/23 16:02:00 EST, Height/Length Dosing, 133.6, kg, 04/11/23 16:02:00 EST, Weight Dosing Start Date: 09/16/23 Status: OrderedStart: 94-45-2612bxdm 1 tablet by mouth once daily levothyroxine 175 mcg (0.175 mg) Tab TAKE 1 TABLET BY MOUTH ONCE DAILY Start Date: 04/11/22 Status: OrderedStart: 35-68-1079dnao 175 ug by mouth once ebokh173 mcg, Oral, DAILY, First dose on [facility] 03/10/20 at 1230 Tube feeding (TF) interaction, obtain physician order to manage, recommend holding TF for 30 minutes before and after dose.loratadine 10 mg oral capsule (20 sources)Start: 41-04-2326jmbv 1 capsule by mouth once dailyloratadine 10 mg oral capsule 10 mg = 1 cap(s), Oral, Daily, # 10 cap(s), Refills(s) 0, Allergy symptoms Start Date: 04/11/22 Status: Ordered Quantity: 10.0 Unit: cap(s) Repeat number: 1Start: 42-88-8559yrahyzjbxv (CLARITIN) tablet 10 mg1 ml LORazepam 2 mg/ml injection (1 source)BenzodiazepineStart: 43-21-7255TPQxtdbwp (ATIVAN) injection 1 mg Magnesium (7 sources)Start: 93-77-8920Dosjjjmwj Magnesium, 250 mg, Oral, Daily, none Start Date: 02/06/24 Status: Ordered Repeat number: 1Start: 49-10-0725ylnr 250 mg by mouth once dailyMagnesium Magnesium, 250 mg, Oral, Daily, none Start Date: 02/06/24 Status: OrderedStart: 21-83-0872Wmteehyrw Magnesium, Oral, Daily, none Start Date: 02/06/24 Status: OrderedStart: 59-96-0961Oqgorfbkr Magnesium, See Instructions Start Date: 02/06/24 Status: Orderedmagnesium gluconate 550 mg oral tablet (20 sources)take 1 tablet by mouth in the morningmagnesium 30 MG tablet Take 30 mg by mouth in the morning and 30 mg before bedtime. ActivemethylPREDNISolone 4 mg oral tablet (3 sources)CorticosteroidStart: 06-25-2022 End: 29-15-9080Jgccwy Dosepack 4 mg Tab = 1 packet(s), Oral, As Directed, as directed on package labeling, X 6 day(s), # 21 tab(s), Refills(s) 0, Pharmacy: [facility]/pharmacy #[id number], 178, cm, 06/25/22 14:55:00 EST, Height/Length Dosing, 125.6, kg, 06/25/22 14:55:00 EST, Weight Dosing Start Date: 06/25/22 Stop Date: 07/01/22 Status: OrderedStart: 04-11-2022 End: 46-71-3301Lpmjgs Dosepack 4 mg Tab = 1 packet(s), Oral, As Directed, as directed on package labeling, X 6 day(s), # 21 tab(s), Refills(s) 0, [id number] Start Date: 04/11/22 Stop Date: 04/17/22Status: Ordered naproxen 500 mg oral tablet (10 sources)Nonsteroidal Anti-inflammatory DrugStart: 03-19-2025 End: 67-65-6266xapq 1 tablet by mouth in the morningnaproxen (Naprosyn) 500 MG tablet Indications: Impingement syndrome of right shoulder , Neck pain Take 1 tablet (500 mg) by mouth in the morning and 1 tablet (500 mg) in the evening. Take with meals.60 tablet 2 03/19/2025 04/18/2025 Active End: 55-89-0469fjsleujq (NAPROSYN) 500 MG tablet Take 500 mg by mouth as needed for Pain 0 03/11/2020 Discontinued(Stop Taking at Discharge)omeprazole 40 mg delayed release oral capsule (1 source)Proton Pump InhibitorStart: 04-46-8228ilil 1 capsule by mouth once dailyomeprazole 40 mg Cap-DR 40 mg = 1 cap(s), Oral, Daily, # 90 cap(s), Refills(s) 0, Pharmacy: [facility]/pharmacy #[id number], 178, cm, 01/28/24 8:33:00 EDT, Height/Length Dosing, 138.5, kg, 01/28/24 8:33:00 EDT, Weight Dosing Start Date: 01/28/24 Status: Ordered2 ml ondansetron 2 mg/ml injection (1 source)Serotonin-3 Receptor AntagonistStart: 75-25-9711hfilrvlqhti (ZOFRAN) injection 4 mgoxyCODONE hydrochloride 5 mg oral tablet (3 sources)Opioid AgonistStart: 03-11-2020 End: 90-23-9671abep 1 tablet by mouth every six hours as needed for pain oxyCODONE (ROXICODONE) 5 MG immediate release tablet Indications: Recurrent incisional hernia Take 1 tablet by mouth every 6 hours as needed for Pain for up to 7 days. 20 tablet 0 03/11/2020 03/18/2020 ActiveStart: 85-92-9511euvLEWSPO (ROXICODONE) immediate release tablet 5 mgpredniSONE 10 mg oral tablet (7 sources)Start: 62-91-5847aiggjlUHBU (Deltasone) 10 MG tablet Indications: Impingement syndrome of right shoulder , Neck painAs directed orally - Take 6 tabs day 1 and 2, 5 tabs day 3 and 4, 4 tabs day 5 and 6, 3 tabs day 7 and 8, 2 tabs day 9 and 10, and 1 tab day 11 and 12. 42 tablet 03/19/2025 ActiveStart: 05-03-4167ysxk 1 tablet by mouth every twelve hourspredniSONE 20 MG 1 tablet Orally 2 times a day for 5 day(s) Apr, Active3 ml sodium chloride 9 mg/ml injection (2 sources)Start: 00-82-065824 mL, Intravenous, EVERY 12 HOURS SCHEDULED (2 times per day), First dose on [facility] 03/10/20 at 2100, Post-opStart: 78-12-6350xtfm 10 mL intravenous route once10 mL, Intravenous, PRN, Line Care, Starting [facility] 03/10/20 at 1200 After every IV line use Post-opsulfamethoxazole 800 mg / trimethoprim 160 mg oral tablet (2 sources)Dihydrofolate Reductase Inhibitor Antibacterial, Sulfonamide AntimicrobialStart: 05-07-2024 End: 92-83-8894Johruol D.S. 800 mg-160 mg Tab 1 tab(s), Oral, BID for 3 day(s), 6 tab(s), Refill(s) 0, [facility]/pharmacy #[id number], 178, cm, 05/07/24 9:37:00 EST, Height/Length Dosing, 136.7, kg, 05/07/24 9:37:00 EST, Weight Dosing Start Date: 05/07/24 Stop Date: 05/10/24 Status: Orderedvitamin b12 0.1 mg oral tablet (6 sources)Vitamin S05ptzy 1 tablet by mouth once dailycyanocobalamin (Vitamin B-12) 100 MCG tablet Take 100 mcg by mouth Daily ActiveVitamin C 1000 mg oral tablet (4 sources)Start: 19-36-0703wchs 1 tablet by mouth once dailyVitamin C 1000 mg oral tablet 1,000 mg = 1 tab(s), Oral, Daily, # 30 tab(s), Refills(s) 0, [id number] 178, cm, 05/09/22 15:08:00 EST, Height/Length Dosing, 122.5, kg, 05/09/22 15:08:00 EST, Weight Dosing Start Date: 05/09/22 Status: OrderedVitamin D (1 source)Start: 20-60-9021Whbnrjl D See Instructions, Refills(s) 0 Start Date: 02/06/24 Status: OrderedVitamin D Oral (6 sources)Start: 89-29-5521Vicmkgt D Oral Oral, Daily, Refills(s) 0, Prophylaxis Start Date: 02/24/24 Status: Ordered Repeat number: 1Start: 64-31-0429Kyekbqq D Oral Oral, Daily, Refills(s) 0, Prophylaxis Start Date: 02/24/24 Status: OrderedVITAMIN D PO (20 sources)VITAMIN D PO Take by mouth ActiveZinc (7 sources)Start: 30-50-5268lvjm 50 mg by mouth once dailyZinc 50 mg, Oral, Daily, Refills(s) 0, Prophylaxis Start Date: 02/06/24 Status: Ordered Repeat number: 1Start: 12-11-7353hpav 50 mg by mouth once dailyZinc 50 mg, Oral, Daily, Refills(s) 0, Prophylaxis Start Date: 02/06/24 Status: OrderedStart: 02-06-2024 Zinc Oral, Daily, Refills(s) 0, Prophylaxis Start Date: 02/06/24 Status: Ordered Start: 53-17-4240Pcwg Refills(s) 0 Start Date: 02/06/24 Status: Orderedzinc gluconate 50 mg oral tablet (4 sources)Start: 35-30-7376akaw 1 tablet by mouth once dailyzinc gluconate 50 mg oral tablet = 1 tab(s), Oral, Daily, # 30 tab(s), Refills(s) 0, Pharmacy: [facility]/pharmacy #[id number], 178, cm, 05/09/22 15:08:00 EST, Height/Length Dosing, 122.5, kg, 05/09/22 15:08:00 EST, Weight Dosing Start Date: 05/09/22 Status: Ordered Completed/Discontinued Medications MedicationDrug Class(es)DatesSig (Normalized)Sig (Original)betamethasone 3 mg/ml / betamethasone acetate 3 mg/ml injectable suspension (4 sources)CorticosteroidStart: 06-29-2024 End: 23-25-5850ickoonatrpdpo acetate-betamethasone sodium phosphate (Celestone) injection 1 mLStart: 06-29-2024 End: mL, Intra-articular, Once PRN Procedure, Starting on Sat06/29/24 at 1021, For 1 dosecalcium chloride 0.0014 meq/ml / potassium chloride 0.004 meq/ml / sodium chloride 0.103 meq/ml / sodium lactate 0.028 meq/ml injectable solution (1 source)Start: 03-11-2020 End: 02-28-3795iouyegdm ringers infusionStart: 03-11-2020 End: 47-19-3915xnvivxjy ringers infusionceFAZolin (ANCEF) 2 g in dextrose 5 % 50 mL IVPB (1 source)Start: 03-10-2020 End: g, Intravenous, EVERY 8 HOURS, 2 doses, First dose on [facility] 03/10/20 at 1300, Last dose on [facility] 03/10/20 at 2100, Post-opescitalopram 10 mg oral tablet (1 source)Serotonin Reuptake Inhibitor End: 30-30-6020ehvc 1 tablet by mouth once dailyescitalopram (LEXAPRO) 10 MG tablet Take 10 mg by mouth daily 0 02/01/2020 Discontinued2 ml fentaNYL 0.05 mg/ml injection (1 source)Opioid AgonistStart: 03-10-2020 End: 00-97-7399opyavSKQ (SUBLIMAZE) injection 25 beu886 ml glucose 50 mg/ml / potassium chloride 0.02 meq/ml / sodium chloride 4.5 mg/ml injection (1 source)Start: 03-10-2020 End: 33-90-4583Ygnavffuxqd, at 100 mL/hr, CONTINUOUS, Starting [facility] 03/10/20 at 1230, Post-opmeloxicam 15 mg oral tablet (10 sources)Nonsteroidal Anti-inflammatory DrugStart: 06-29-2024 End: 80-35-6166tdei 1 tablet by mouth once daily at mealtimemeloxicam (Mobic) 15 MG tablet Indications: Impingement syndrome of left shoulder , Arthritis of left shoulder region Take 1 tablet (15 mg) by mouth Daily With food. 30 tablet 2 06/29/2024 08/03/2024Expired Problems Active Problems Problem ClassificationProblemDateDocumented DateEpisodic/ChronicAbdominal pain (6 sources)Generalized abdominal pain; Translations: [Generalized abdominal pain]Onset: 45-32-7029OcrczfusAicyopwamflbst/social admission (5 sources)Fjsalj07-94-2615GdnuigscPufmasp obstructive pulmonary disease and bronchiectasis (1 source)Bronchitis, not specified as acute or chronicEpisodicDisorders of lipid metabolism (2 sources)Enngwcmxilck93-19-7483IltichsDpyjctrefu disorders (8 sources)Gastroesophageal reflux disease without esophagitis; Translations: [Gastro-esophageal reflux disease without esophagitis]Onset: 50-38-4292Ovfgsrg Essential hypertension (11 sources)Essential hypertension; Translations: [Essential hypertension]Onset: 034279-76-8960WiesbusZxeynnazpimnn symptoms and ill-defined conditions (9 sources)Stress incontinence (female) (male); Translations: [Female stress incontinence]Onset: 00-43-5549DwckfahMjyiojvvckdvh symptoms and ill-defined conditions (2 sources)Dysuria; Translations: [Dysuria]Onset: 73-58-7605AujmidynLmnvvj and vomiting (6 sources)Nausea; Translations: [Nausea]Onset: 17-46-4269QqqsopauIbhzelbeolknup (13 sources)Primary osteoarthritis, left shoulder; Translations: [Arthropathy, unspecified, shoulder region]32-44-6744RqqvivvJjztp aftercare (6 sources)Surgical follow-up; Translations: [Postoperative follow-up]Onset: 211399-69-9388HanwziemSaccu connective tissue disease (17 sources)Impingement syndrome of left shoulder region; Translations: [Impingement syndrome of left shoulder]90-50-6014JmpxmqiwUjokx connective tissue disease (10 sources)Impingement syndrome of right shoulder region; Translations: [Impingement syndrome of right shoulder]29-28-2761EzojmbtcXhcim endocrine disorders (1 source)Other specified disorders of adrenal gland; Translations: [OTHER SPEC DISORDERS ADRENAL GLAND]Onset: 04-26-9300MrwfojgWdngf endocrine disorders (1 source)Disorder of adrenal gland, unspecified; Translations: [DISORDER ADRENAL GLAND UNSPECIFIED]Onset: 79-19-8757AkxgwxzDltyt gastrointestinal disorders (1 source)Constipation, unspecified; Translations: [Constipation, unspecified] Onset: 10-18-7232SvvczpriOqejk gastrointestinal disorders (1 source)Swollen abdomen; Translations: [Abdominal distension (gaseous)]Onset: 16-29-0551ZdiqlryjRgnaa gastrointestinal disorders (5 sources)Abdominal ubyrdajh47-71-3714JvbiymoiVjher lower respiratory disease (5 sources)Cough; Translations: [Cough, unspecified]Onset: 352364-73-6130 EpisodicOther nervous system disorders (2 sources)Nerve root gtmnyyzu89-16-3712PglyzzgMxiky non-traumatic joint disorders (7 sources)Shoulder jzdx41-28-9083EbdqbchdNuovi nutritional; endocrine; and metabolic disorders (12 sources)Body mass index 30+ - obesity; Translations: [Obesity (BMI 35.0-39.9 without comorbidity)]Onset: 024007-56-4438BdlbompPhyht nutritional; endocrine; and metabolic disorders (6 sources)Obesity; Translations: [Other obesity due to excess calories]Onset: 811340-37-4247ZvifeqcIqsao nutritional; endocrine; and metabolic disorders (1 source)Obese class II; Translations: [Body mass index (BMI) 39.0-39.9, adult] Onset: 30-01-0386RompnjnNcbla nutritional; endocrine; and metabolic disorders (7 sources)Calorie ewdgsrlt45-33-2554SagsqonJhfyq nutritional; endocrine; and metabolic disorders (5 sources)Obese class SNH45-09-2796WbipsbrMrcck nutritional; endocrine; and metabolic disorders (5 sources)Obesity caused by energy -08-8994XznoybaQofab nutritional; endocrine; and metabolic disorders (5 sources)Morbid obesity; Translations: [Morbid (severe) obesity due to excess calories]Onset: 36-33-8011GydmrcgMemvh nutritional; endocrine; and metabolic disorders (6 sources)Body mass index 40+ - severely obese; Translations: [Body mass index (BMI) 40.0-44.9, adult]Onset: 44-67-2728QxdimjuPkppx upper respiratory infections (3 sources)Acute upper respiratory infection; Translations: [Acute upper respiratory infection, unspecified]Onset: 75-73-1530AvhbutgvTywgsl media and related conditions (1 source)Otitis media, unspecified, bilateralEpisodicResidual codes; unclassified (4 sources)Tobacco user; Translations: [Tobacco use]Onset: ChronicResidual codes; unclassified (6 sources)Early satiety; Translations: [Early satiety]Onset: 22-74-4641Hplyxdjd Residual codes; unclassified (1 source)Family history of malignant neoplasm of digestive organ; Translations: [Family history of malignantneoplasm of digestive organs]Onset: 02-06-2024 EpisodicScreening and history of mental health and substance abuse codes (12 sources)Tobacco use and exposure - finding; Translations: [History of tobacco use]Onset: 02-01-2020 Resolved: [id number] and history of mental health and substance abuse codes (9 sources)Personal history of nicotine dependence; Translations: [Ex-smoker] Onset: [id number]gevhefi; intervertebral disc disorders; other back problems (4 sources)Degeneration of cervical intervertebral disc; Translations: [Other cervical disc degeneration, unspecified cervical region]33-39-4750Dwoqoly Spondylosis; intervertebral disc disorders; other back problems (10 sources)Neck pain; Translations: [Cervicalgia]54-88-2598QxnjrcdyMxndjruuz- related disorders (5 sources)Smoker; Translations: [Nicotine dependence]Onset: 06-25-2022 60-71-0052OxfdpwdJecuexb disorders (19 sources)Hypothyroidism; Translations: [Hypothyroidism, unspecified]Onset: [id number]fxt (1 source)Acute cough; Translations: [Acute cough]Onset: 04-51-8006Csqitvdekcrp (6 sources)Patient encounter -18-9445Mqsultmwgomw (2 sources)Cancer cervix screening mvzohs03-78-8164Xdzaffkt veins of lower extremity (7 sources)Varicose veins of lower xlymuvuax00-87-9070Tpjnfymt Past or Other Problems Problem ClassificationProblemDateDocumented DateEpisodic/ChronicAbdominal hernia (15 sources)Incisional hernia; Translations: [Recurrent hernia of anterior abdominal wall]Onset: 02-01-2020 Resolved: [id number]j gastroenteritis (1 source)Noninfective gastroenteritis and colitis, unspecified; Translations: [NONINFECTIVE GE AND COLITIS UNS]Onset: 82-74-1331JqofkpkmFcwih gastrointestinal disorders (3 sources)Diarrhea, unspecified; Translations: [DIARRHEA UNSPECIFIED]Onset: 71-42-4385NzxpaktcZxzyl non-traumatic joint disorders (4 sources)Pain in right shoulder; Translations: [PAIN IN RIGHT SHOULDER]Onset: 09-47-6220PgbfgjhtSlijphiubjym (1 source)Acute cough R05.1Unclassified (4 sources)Arthritis of left shoulder elgxaa71-78-3195 Results Test NameValueInterpretationReference RangeFacilityProvider Letteron 02-16-2025 Provider LetterProvider Letter February 16, 2025 MARIANNE STEPHENSON [address] [place] [id number] : 1975 Dear Marianne , We have been trying to reach you with no success. It is important that you return our call regarding your recent referrals. Also, at the time of your call, please provide us with your current information. Thank you for your prompt attention to this matter. Sincerely, [address] [address] [facility]As[facility] CenterAmbulatory Visit Summaryon 40-16-8273Lcfpkuzuln Visit SummaryAmbulatory Visit Summary MARIANNE STEPHENSON :1975 Visit Date:01/18/2025 Ambulatory Visit Instructions Your Diagnosis Encounter for weight management Depression BMI 40.0-44.9, adult Former smoker Obesity, morbid, BMI 40.0-49.9 Your Care Team Attending Physician - DAWIT BLANCHARD CNP Primary Care Physician - DAWIT BLANCHARD CNP This Is Your Medications List Non-Formulary Medication (Magnesium) ascorbic acid (Vitamin C) aspirin (aspirin 81 mg Oral EC Tab) ergocalciferol (Vitamin D Oral) levothyroxine (levothyroxine 175 mcg (0.175 mg) Tab) loratadine (loratadine 10 mg oral capsule) omega-3 polyunsaturated fatty acids ([place]-3 Fish Oil 1000 mg oral capsule) zinc sulfate (Zinc) Procedures Performed Colonoscopy (02/24/2024), Esophagogastroduodenoscopy (02/24/2024), History of repair of umbilical hernia (2019), Cholecystectomy (2017), section (2007). Discharge Vitals Temperature (Oral) 36.8 ???C Heart Rate (Peripheral) 88 Respiratory Rate 20 Blood Pressure 132/82 Height 178 cm Height 70 in Weight 138.6 kg Weight 305.56 lb BMI 43.74 What to do next Scheduled Follow-Up Appointments Saturday 9:00 AM EDT With: DAWIT BLANCHARD CNP Where: [address] [address]- Saturday 7:40 AM EST With: DAWIT BLANCHARD CNP Where: [address] [address]- Someone Will Contact You Regarding These Appointments [facility], Counseling, 01/18/25 8:22:00 EDT, Depression Medications What How Much When Instructions Unchanged ascorbic acid (Vitamin C) 500 Milligram By Mouth Every day Unchanged aspirin (aspirin 81 mg Oral EC Tab) 1 Tablets By Mouth Every day Unchanged ergocalciferol (Vitamin D Oral) By Mouth Every day Unchanged levothyroxine (levothyroxine 175 mcg (0.175 mg) Tab) See instructions TAKE 1 TABLET BY MOUTH ONCE DAILY Unchanged loratadine (loratadine 10 mg oral capsule) 1 Capsules By Mouth Every day Unchanged Non-Formulary Medication (Magnesium) 250 Milligram By Mouth Every day none Unchanged omega-3 polyunsaturated fatty acids ([place]-3 Fish Oil 1000 mg oral capsule) 1 Capsules ByMouth Every day Unchanged zinc sulfate (Zinc) 50 Milligram By Mouth Every day Allergies No Known Medication Allergies Problems Ongoing - Any problem that you are currently receiving treatment for. Bilateral shoulder pain BMI 40.0-44.9, adult Breast cancer screening by mammogram Cervical cancer screening Dyslipidemia Excessive dietary caloric intake Former smoker GERD without esophagitis Hypothyroid Obesity, morbid, BMI 40.0-49.9 Varicose veins of legs Well woman exam Patient Survey You may receive a survey via text or e-mail asking about your office visit. Please share your experience with us by completing your survey. We appreciate your feedback and thank you for choosing us for your care. Patient Portal You may access all of your results and other medical record information on our secure patient portal. If you are not signed up for this yet, please contact [employer] Information Management at [phone] to get signed up today. Language Information Language assistance services are available as needed. [facility] Medicine Office/Clinic Noteon [phone] Medicine Office/Clinic NoteFapenikese island [facility] Medicine Office/Clinic Note Chief Complaint Discuss Weight Loss Options The patient presents with concerns regarding weight management and seeks guidance on natural weightloss strategies. [facility] Staff Pt presents today to discuss weight loss options. States she was given script for GLP1 med in past, did not take due to interaction with hypothyroidism. Has tried dieting and exercise, nothing works. PHQ 12 Is interested in referral to counselor. Does have 4m lipid & thyroid follow up scheduled 05/12/25. History of Present Illness 49-year-old female presenting with concerns regarding weight management and guidance on natural weight loss strategies. She has a history of morbid obesity with a BMI of 40.0-49.9 and has previously been prescribed Adipex, a stimulant medication, which she discontinued due to adverse effects reminiscent of past methamphetamine use. The patient expressed a desire to pursue natural weight loss methods and requested guidance on nutrition and structured meal planning. The patient has a personal history of nicotine dependence but is currently a former smoker. She reports experiencing significant mood swings and has expressed interest in counseling to address these issues. The patient has not previously engaged in counseling but is open to exploring this option for additional support. Review of Systems PHQ Score Initial Depression Screen Score: 0 SCORE - Psychiatric: Reports significant mood swings. Denies previous counseling experience. Physical Exam Vitals & Measurements T: 36.8 ???C(Oral) HR: 88(Peripheral) RR: 20 BP: 132/82 SpO2: 95% HT: 178 cm HT: 70 in WT: 138.6 kg WT: 305.56 lb BMI: 43.74 General: alert, no acute distress Cardiovascular: regular rate and rhythm, normal peripheral perfusion Respiratory: Lungs CTA, respirations non labored Extremities: no deformity, no trauma Neurological: oriented x 4, LOC appropriate for age speech normal Assessment/Plan 1. Encounter for weight management (Z76.89: Persons encountering health services in other specifiedcircumstances) - The patient expressed a preference for natural weight loss methods and requested guidance on nutrition and structured meal planning. - Referral to a bread racker for nutritional counseling was discussed to aid in weight management. Or[place] [facility] [place] 2. Depression (F32.A: Depression, unspecified) Completed and reviewed the PHQ-9 score of 12 today in the office Patient declines medication as she has tried this in the past Referral placed for Counseling Ordered: [facility] 3. BMI 40.0-44.9, adult (Z68.41: Body mass index [BMI] 40.0-44.9, adult) BMI 43.74 Ordered: [facility] 4. Former smoker (Z87.891: Personal history of nicotine dependence) - The patient is a former smoker and no specific interventions were discussed during this visit. 5. Obesity, morbid, BMI 40.0-49.9 (E66.01: Morbid (severe) obesity due to excess calories) - The patient expressed a preference for natural weight loss methods and requested guidance on nutrition and structured meal planning. - Referral to a bread racker for nutritional counseling was discussed to aid in weight management. Ordered: [facility] Referral Follow-up With When Contact Information DAWIT BLANCHARD CNP, FAM In 10 weeks 03/29/2025 EDT [address] [place] [address] Business (1) Additional Instructions: Weoight management & depression Patient Education Obesity, Adult, Qhos-ko-Sjse Problem List/Past Medical History Ongoing Bilateral shoulder pain BMI 40.0-44.9, adult Breast cancer screening by mammogram Cervical cancer screening Dyslipidemia Excessive dietary caloric intake Former smoker GERD without esophagitis Hypothyroid Obesity, morbid, BMI 40.0-49.9 Varicose veins of legs Well woman exam Historical No qualifying data Procedure/Surgical History Colonoscopy (02/24/2024), Esophagogastroduodenoscopy (02/24/2024), History of repair of umbilical hernia (2019), Cholecystectomy (2017), section (2007). Medications aspirin 81 mg Oral EC Tab, 81 mg= 1 tab(s), Oral, Daily levothyroxine 175 mcg (0.175 mg) Tab, See Instructions loratadine 10 mg oral capsule, 10 mg= 1 cap(s), Oral, Daily Magnesium, 250 mg, Oral, Daily [place]-3 Fish Oil 1000 mg oral capsule, 1000 mg= 1 cap(s), Oral, Daily Vitamin C, 500 mg, Oral, Daily Vitamin D Oral, Oral, Daily Zinc, 50 mg, Oral, Daily Allergies No Known Medication Allergies Social History Alcohol - Denies Alcohol Use, 04/11/2022 Never., 05/13/2024 Substance Abuse Past. Marijuana, Methamphetamines, Prescription medications. Several times per day. Previous treatment: None., 01/06/2025 Tobacco Former smoker, quit more than 30 days ago Tobacco Use:. Never Smokeless Tobacco Use:. Cigarettes, Stopped age 46 Years. Household tobacco concerns: No. Yes, 08 (more content not included)...[facility] Medical CenterComment on above: Result Comment: Electronically Signed By: DAWIT BLANCHARD CNP\.br\Date and Time Signed: 01/18/25 08:55 EDTAmbulatory Visit Summaryon [id number] Visit SummaryAmbulatory Visit Summary MARIANNE STEPHENSON :1975 Visit Date:01/07/2025 Ambulatory Visit Instructions Your Diagnosis Hypothyroid Dyslipidemia BMI 40.0-44.9, adult Former smoker Obesity, morbid, BMI 40.0-49.9 Your Care Team Attending Physician - DAWIT BLANCHARD CNP Primary Care Physician - DAWIT BLANCHARD CNP This Is Your Medications List levothyroxine (levothyroxine 175 mcg (0.175 mg) Tab) Contact prescribing physician if questions or concerns Non-Formulary Medication (Magnesium) ascorbic acid (Vitamin C) aspirin (aspirin 81 mg Oral EC Tab) ergocalciferol (Vitamin D Oral) loratadine (loratadine 10 mg oral capsule) omega-3 polyunsaturated fatty acids ([place]-3 Fish Oil 1000 mg oral capsule) zinc sulfate (Zinc) Procedures Performed Colonoscopy (02/24/2024), Esophagogastroduodenoscopy (02/24/2024), History of repair of umbilical hernia (2019), Cholecystectomy (2017), section (2007). Discharge Vitals Temperature (Oral) 36.8 ???C Heart Rate (Peripheral) 70 Respiratory Rate 18 Blood Pressure 128/84 Height 178 cm Height 70 in Weight 137.2 kg Weight 302.474 lb BMI 43.3 What to do next Scheduled Follow-Up Appointments Saturday 8:00 AM EDT With: DAWIT BLANCHARD CNP Where: [address] [address]- Saturday 7:40 AM EST With: DAWIT BLANCHARD CNP Where: [address] [address]- You Need to Schedule the Following Appointments Follow Up with DAWIT BLANCHARD CNP [facility] When: In 4 months 05/09/2025 EST Comments: Hyperlipidemia & Hypothyroidism Where: [address] [place] [phone] Business (1) Follow Up with DAWIT BLANCHARD CNP, FAM When: Within 2 weeks Comments: weight management Where: [address] [place] [address] Business (1) Medications What How Much When Instructions Unchanged levothyroxine (levothyroxine 175 mcg (0.175 mg) Tab) See instructions TAKE 1 TABLET BY MOUTH ONCE DAILY Pickup at [facility]/pharmacy #[id number] Unchanged ascorbic acid (Vitamin C) 500 Milligram By Mouth Every day Contact prescribing physician if questions or concerns Unchanged aspirin (aspirin 81 mg Oral EC Tab) 1 Tablets By Mouth Every day Contact prescribing physician if questions or concerns Unchanged ergocalciferol (Vitamin D Oral) By Mouth Every day Contact prescribing physician if questions or concerns Unchanged loratadine (loratadine 10 mg oral capsule) 1 Capsules By Mouth Every day Contact prescribing physician if questions or concerns Unchanged Non-Formulary Medication (Magnesium) 250 Milligram By Mouth Every day none Contact prescribing physician if questions or concerns Unchanged omega-3 polyunsaturated fatty acids ([place]-3 Fish Oil 1000 mg oral capsule) 1 Capsules ByMouth Every day Contact prescribing physician if questions or concerns Unchanged zinc sulfate (Zinc) 50 Milligram By Mouth Every day Contact prescribing physician if questions or concerns Pharmacy Information [facility]/pharmacy #[id number]: [address], [place] [id number] [phone] Allergies No Known Medication Allergies Problems Ongoing - Any problem that you are currently receiving treatment for. Bilateral shoulder pain BMI 40.0-44.9, adult Breast cancer screening by mammogram Cervical cancer screening Dyslipidemia Excessive dietary caloric intake Former smoker GERD without esophagitis Hypothyroid Obesity, morbid, BMI 40.0-49.9 Varicose veins of legs Well woman exam Patient Survey You may receive a survey via text or e-mail asking about your office visit. Please share your experience with us by completing your survey. We appreciate your feedback and thank you for choosing us for your care. Patient Portal You may access all of your results and other medical record information on our secure patient portal. If you are not signed up for this yet, please contact [employer] at [phone] to get signed up today. Language Information Language assistance services are available as needed. [facility] Medicine Office/Clinic Noteon [id number] Medicine Office/Clinic NoteFapenikese island [facility] Medicine Office/Clinic Note Chief Complaint Follow up The patient presents for follow-up on hypothyroidism and dyslipidemia management. HPI Staff Pt presents today for 3m follow up Patient is here for follow up on hyperlipidemia: Pt states Dr Sanchez wanted her to try fish oil x1yr prior to starting med. Yearly Lipid labs: _ due for recheck in April Chol: 174 mg/dL (05/14/24 08:40:00) HDL: 27 mg/dL (05/14/24 08:40:00) LDL Direct: 92 mg/dL (05/14/24 08:40:00) Tri mg/dL High (05/14/24 08:40:00) VLDL: Unable to Calculate Abnormal (05/14/24 08:40:00) Patient is here for follow up on Thyroid Disease. Do you have any of the following symptoms? Change in energy level? no Weight change? no Heat/cold intolerance? no Hair/skin/nail changes? no Change in bowels? no Last TSH: TSH: 0.74 mcIU/mL (05/14/24 08:40:00) NEG Pap 11/18/24 Mammogram ordered 11/18/24 Does need refill of levothyroxine. History of Present Illness 49-year-old female presenting with follow-up on chronic conditions including hypothyroidism and dyslipidemia. The patient has a history of hypothyroidism, for which she is currently on levothyroxine therapy. Her thyroid-stimulating hormone (TSH) levels were recently checked and found to be within normal limits. The patient also has dyslipidemia, for which she was advised to take fish oil supplements to manageher cholesterol levels. She is scheduled for a follow-up lipid panel in May to reassess her cholesterol levels. The patient reports experiencing perimenopausal symptoms, including emotional fluctuations and irregular menstrual cycles. She describes episodes of mood swings and irregular periods, with the last menstrual cycle occurring a couple of months ago. The patient is also dealing with morbid obesity, which she finds challenging to manage. She has attempted various weight loss strategies, including portion control and specific diets, but has struggled with weight regain. Review of Systems PHQ Score Initial Depression Screen Score: 2 SCORE - Endocrine: Reports irregular menstrual cycles and emotional fluctuations associated with perimenopause. - Cardiovascular: Denies chest pain or palpitations. - Respiratory: Denies dyspnea or cough. Physical Exam Vitals & Measurements T: 36.8 ???C(Oral) HR: 70(Peripheral) RR: 18 BP: 128/84 SpO2: 98% HT: 70 in HT: 178 cm WT: 137.2 kg WT: 302.474 lb BMI: 43.3 General: alert, no acute distress Cardiovascular: regular rate and rhythm, normal peripheral perfusion Respiratory: Lungs CTA, respirations non labored Extremities: no deformity, no trauma Neurological: oriented x 4, LOC appropriate for age speech normal Assessment/Plan 1. Hypothyroid (E03.9: Hypothyroidism, unspecified) - Continue levothyroxine therapy and monitor TSH levels. - Refill of levothyroxine at today's appointment - will recheck TSH level at next appoitnment 2. Dyslipidemia (E78.5: Hyperlipidemia, unspecified) - Continue fish oil supplements. - Schedule follow-up lipid panel in May. - ENcourage low fat diet and daily exericse 3. BMI 40.0-44.9, adult (Z68.41: Body mass index [BMI] 40.0-44.9, adult) BMI 43.3 4. Former smoker (Z87.891: Personal history of nicotine dependence) Encouraged to continue as a non-smoker 5. Obesity, morbid, BMI 40.0-49.9 (E66.01: Morbid (severe) obesity due to excess calories) - Discuss weight management strategies, including portion control and exercise. - Consider follow-up appointment to explore further weight loss options. Orders: levothyroxine, See Instructions, TAKE 1 TABLET BY MOUTH ONCE DAILY, # 90 tab(s), Refills(s) 0, Pharmacy: [facility]/pharmacy #[id number], 178, cm, 01/07/25 7:58:00 EDT, Height/Length Dosing, 137.2, kg, 01/07/25 7:58:00 EDT, Weight Dosing Follow-up With When Contact Information DAWIT BLANCHARD CNP, FAM In 4 months 05/09/[address] [place] [address] Business (1) Additional Instructions: Hyperlipidemia & Hypothyroidism DAWIT BLANCHARD CNP, FAM Within 2 weeks [address] [place] [phone] [facility] (1) Additional Instructions: weight management Problem List/Past Medical History Ongoing Bilateral shoulder pain BMI 40.0-44.9, adult Breast cancer screening by mammogram Cervical cancer screening Dyslipidemia Excessive dietary caloric intake Former smoker GERD without esophagitis Hypothyroid Obesity, morbid, BMI 40.0-49.9 Varicose veins of legs Well woman exam Historical No qualifying data Procedure/Surgical History Colonoscopy (02/24/2024), Esophagogastroduodenoscopy (02/24/2024), History of repair of umbilical hernia (2019), Cholecystectomy (2017), section (2007). Medications aspirin 81 mg Oral EC Tab, 81 mg= 1 tab(s), Oral, Daily levothyroxine 175 mcg (0.175 mg) Tab, See Instructions loratadine 10 mg oral capsule, 10 mg= 1 cap(s), Oral, Daily Magnesium, 250 mg, Oral, Daily [place] (more content not included)...NormalSt. John Of God HospitalComment on above:Result Comment: Electronically Signed By: DAWIT BLANCHARD CNP\.br\Date and Time Signed: 01/07/25 08:27 EDTPAP [id number] AptimaNegative Invalid Interpretation CodeNegativeSt. John Of God HospitalComment on above: Result Comment: This nucleic acid amplification test detects fourteen high-risk HPV types (16,18,31,33,35,39,45,51,52,56,58,59,66,68) without differentiation. Performed at: [address] [id number] MD Maria A Gonzalez Performed at: =G [facility] [id number] MD Maria A GonzalezPerformed By: #### [id number] #### [facility] [address] [place] [id number] Interpretation CodeSt. John Of God HospitalComment on above:Result Comment: TESTS RESULT FLAG UNITS REF RANGE LAB Clinician Provided Cytology Information Source.............Endocervix No. of containers..01 ThinPrep Vial DIAGNOSIS: 01 NEGATIVE FOR INTRAEPITHELIAL LESION OR MALIGNANCY. Specimen adequacy: 01 Satisfactory for evaluation. Endocervical and/or squamous metaplastic cells (endocervical component) are present. Performed by: 01 Iwona Mcintosh, Graphic Design Manager ([facility]) . 01 Note: Note 01 The Pap smear is a screening test designed to aid in the detection of premalignant and malignant conditions of the uterine cervix. It is not a diagnostic procedure and should not be used as the sole means of detecting cervical cancer. Both false-positive and false-negative reports do occur. Test Methodology: Note 01 This liquid based ThinPrep(R) pap test was screened with the use of an image guided system. HPV Genotype Reflex Note 01 Criteria not met, HPV Genotype not performed. FLAG LEGEND: L-Low Normal,H-High Normal,LL-Alert Low,HH-Alert High <-Panic Low,>-Panic High,A-Abnormal,AA-Critical Abnormal Performed at: 01 [facility] [address] [place] [address] Lisa Saha MD, Ojlbbkcln By: #### [id number] #### [facility] [address] [place] [id number] Visit Summaryon 80-04-9610Qddfvhhbvc Visit Summary Ambulatory Visit Summary MARIANNE STEPHENSON :1975 Visit Date:11/18/2024 Ambulatory Visit Instructions Your Diagnosis Well woman exam Breast cancer screening by mammogram Cervical cancer screening BMI 40.0-44.9, adult Obesity, morbid, BMI 40.0-49.9 Former smoker Tests Performed MA Mamm Screen w/CAD if perf and 3D Migel -- Results Pending -- Please visit your patient portal for your results or contact your primary care physician. Your Care Team Attending Physician - Perlita Galaviz Primary Care Physician - Lara Sanchez MD This Is Your Medications List Non-Formulary Medication (Magnesium) ascorbic acid (Vitamin C) aspirin (aspirin 81 mg Oral EC Tab) ergocalciferol (Vitamin D Oral) levothyroxine (levothyroxine 175 mcg (0.175 mg) Tab) loratadine (loratadine 10 mg oral capsule) omega-3 polyunsaturated fatty acids ([place]-3 Fish Oil 1000 mg oral capsule) zinc sulfate (Zinc) Procedures Performed Colonoscopy (02/24/2024), Esophagogastroduodenoscopy (02/24/2024), History of repair of umbilical hernia (2019), Cholecystectomy (2017), section (2007). Discharge Vitals Temperature (Oral) 36.1 ???C Heart Rate (Peripheral) 105 Respiratory Rate 20 Blood Pressure 138/98 Height 178.0 cm Height 70 in Weight 136.85 kg Weight 301.702 lb BMI 43.19 What to do next Scheduled Follow-Up Appointments 2024 8:20 AM EDT With: Lara Sanchez MD Where: [address] [address]- Medications What How Much When Instructions Unchanged ascorbic acid (Vitamin C) 500 Milligram By Mouth Every day Unchanged aspirin (aspirin 81 mg Oral EC Tab) 1 Tablets By Mouth Every day Unchanged ergocalciferol (Vitamin D Oral) By Mouth Every day Unchanged levothyroxine (levothyroxine 175 mcg (0.175 mg) Tab) See instructions TAKE 1 TABLET BY MOUTH ONCE DAILY Unchanged loratadine (loratadine 10 mg oral capsule) 1 Capsules By Mouth Every day Unchanged Non-Formulary Medication (Magnesium) 250 Milligram By Mouth Every day none Unchanged omega-3 polyunsaturated fatty acids ([place]-3 Fish Oil 1000 mg oral capsule) 1 Capsules ByMouth Every day Unchanged zinc sulfate (Zinc) 50 Milligram By Mouth Every day Allergies No Known Medication Allergies Problems Ongoing - Any problem that you are currently receiving treatment for. Bilateral shoulder pain BMI 40.0-44.9, adult Breast cancer screening by mammogram Cervical cancer screening Dyslipidemia Excessive dietary caloric intake Former smoker GERD without esophagitis Hypothyroid Morbid obesity with BMI of 40.0-44.9, adult Obesity, morbid, BMI 40.0-49.9 Varicose veins of legs Well woman exam Patient Survey You may receive a survey via text or e-mail asking about your office visit. Please share your experience with us by completing your survey. We appreciate your feedback and thank you for choosing us for your care. [facility] Medicine Office/Clinic Noteon [phone] Medicine Office/Clinic NoteFapenikese island leper hospital Medicine Office/Clinic Note HPI Staff Woman check up Last pap: 5 years ago Results of lap pap: normal Where was it done: doesn't remember Hx of Hysterectomy: no hx: # of pregnancies 1 abortions 0 live births 1 living children 1 menstrual cycle (normal,heavy,ect): irregular spotting 2-3 days Vaginal discharge, odor, itching: no Self breast exam at home? Last Mammogram: [facility] 1-2 years ago Hx of breast, cervical or uterine cancer in the family: no History of STD: no Do you want tested for STD today: no History of Present Illness pt presents today for well woman visit. Review of Systems PHQ Score Initial Depression Screen Score: 0 SCORE Physical Exam Vitals & Measurements T: 36.1 ???C(Oral) HR: 105(Peripheral) RR: 20 BP: 138/98 SpO2: 97% HT: 178.0 cm HT: 70 in WT: 136.85 kg WT: 301.702 lb BMI: 43.19 General: Well developed, well nourished, in no acute distress Neck: Neck supple. No masses or palpable cervical nodes. Trachea midline. Thyroid without nodules, masses, tenderness, or enlargement Breast: No mass, nodule, discharge, or erythema bilaterally, and no axillary lymphadenopathy Lungs: Normal respiratory effort and clear to auscultation Cardio: Regular rate and rhythm, normal S1 and S2, no murmur, no rub Abdomen: Soft, non-distended, non-tender, normal bowel sounds x4 Gyno: normal external genitalia. Urethra no discharge. Vagina normal without lesions, no vaginal discharge. Cervix normal, without lesions. Uterus normal. No adnexal masses. Pap obtained cervix tilted up Neurologic: Grossly normal Skin: [place], moist, no tenting Lymph Nodes: No cervical adenopathy, nodes normal Mental Status: Alert and oriented x3. Normal mood and affect Assessment/Plan 1. Well woman exam (Z01.419: Encounter for gynecological examination (general) (routine) without abnormal findings) well woman exam. BSE discussed. pap obtained without difficulty. cervix tilted upward but easily visualized. mammogram order faxed to [facility]. all questions answered. RTC as needed Ordered: Est Preventative 40 to 64 years [address] [place] Mamm Screen w/CAD if perf and 3D Migel PAP [id number] w/ HPV and Genotype rflx 2. Breast cancer screening by mammogram (Z12.31: Encounter for screening mammogram for malignant neoplasm of breast) mammogram order provided Ordered: Est Preventative 40 to 64 years 17436 MA Mamm Screen w/CAD if perf and 3D Migel PAP [id number] w/ HPV and Genotype rflx 3. Cervical cancer screening (Z12.4: Encounter for screening for malignant neoplasm of cervix) pap obtained without difficulty Ordered: Est Preventative 40 to 64 years 34189 [place] Mamm Screen w/CAD if perf and 3D Migel PAP [id number] w/ HPV and Genotype rflx 4. BMI 40.0-44.9, adult (Z68.41: Body mass index [BMI] 40.0-44.9, adult) BMI education Ordered: Est Preventative 40 to 64 years 56840 PAP [id number] w/ HPV and Genotype rflx 5. Obesity, morbid, BMI 40.0-49.9 (E66.01: Morbid (severe) obesity due to excess calories) see above Ordered: Est Preventative 40 to 64 years 64904 PAP 814888 w/ HPV and Genotype rflx 6. Former smoker (Z87.891: Personal history of nicotine dependence) continue not smoking Ordered: Est Preventative 40 to 64 years 39962 PAP [id number] w/ HPV and Genotype rflx Follow-up No qualifying data available Problem List/Past Medical History Ongoing Bilateral shoulder pain BMI 40.0-44.9, adult Breast cancer screening by mammogram Cervical cancer screening Dyslipidemia Excessive dietary caloric intake Former smoker GERD without esophagitis Hypothyroid Morbid obesity with BMI of 40.0-44.9, adult Obesity, morbid, BMI 40.0-49.9 Varicose veins of legs Well woman exam Historical No qualifying data Procedure/Surgical History Colonoscopy (02/24/2024), Esophagogastroduodenoscopy (02/24/2024), History of repair of umbilical hernia (2019), Cholecystectomy (2017), section (2007). Medications aspirin 81 mg Oral EC Tab, 81 mg= 1 tab(s), Oral, Daily levothyroxine 175 mcg (0.175 mg) Tab, See Instructions loratadine 10 mg oral capsule, 10 mg= 1 cap(s), Oral, Daily Magnesium, 250 mg, Oral, Daily [place]-3 Fish Oil 1000 mg oral capsule, 1000 mg= 1 cap(s), Oral, Daily Vitamin C, 500 mg, Oral, Daily Vitamin D Oral, Oral, Daily Zinc, 50 mg, Oral, Daily Allergies No Known Medication Allergies Social History Alcohol - Denies Alcohol Use, 04/11/2022 Never., 05/13/2024 Substance Abuse Past. Marijuana, Methamphetamines, Prescription medications. Previous treatment: None., 06/08/2024 Tobacco Former smoker, quit more than 30 days ago Tobacco Use:. Never Smokeless Tobacco Use:. Cigarettes, Stopped age 46 Years. Household tobacco concerns: No. Yes, 11/18/2024 Family History Depression: Mother. Diabetes mellitus type 2: Grandparent and Grandparent. Hypertension: Mother. Immunizations Vaccine Date Status Comments influenza virus vaccine, inactivated - Not Given Patient Refus (more content not included)...[facility] CenterComment on above:Result Comment: Electronically Signed By: Perlita Galaviz\kian\Date and Time Signed: 11/18/24 09:26 EDTPAP [id number] Body SiteENDOCERVIXNormalSt. John Of God HospitalComment on above:Performed By: #### [id number] #### [facility] [address], [place] [address]Hlcenkskdc Visit Summaryon [id number] Visit Summary Ambulatory Visit Summary MARIANNE STEPHENSON :1975 Visit Date:10/06/2024 Ambulatory Visit Instructions Your Diagnosis Excessive dietary caloric intake Dyslipidemia Hypothyroidism, unspecified type GERD without esophagitis BMI 40.0-44.9, adult Obesity, morbid, BMI 40.0-49.9 Former smoker Your Care Team Attending Physician - Lara Sanchez MD Primary Care Physician - Lara Sanchez MD This Is Your Medications List Non-Formulary Medication (Magnesium) ascorbic acid (Vitamin C) aspirin (aspirin 81 mg Oral EC Tab) ergocalciferol (Vitamin D Oral) levothyroxine (levothyroxine 175 mcg (0.175 mg) Tab) loratadine (loratadine 10 mg oral capsule) omega-3 polyunsaturated fatty acids ([place]-3 Fish Oil 1000 mg oral capsule) zinc sulfate (Zinc) Procedures Performed Colonoscopy (02/24/2024), Esophagogastroduodenoscopy (02/24/2024), History of repair of umbilical hernia (2019), Cholecystectomy (2017), section (2007). Discharge Vitals Temperature (Tympanic) 36.7 ???C Heart Rate (Peripheral) 78 Respiratory Rate 18 Blood Pressure 132/84 Height 178 cm Height 70 in Weight 139.6 kg Weight 307.765 lb BMI 44.06 What to do next Scheduled Follow-Up Appointments Saturday 9:00 AM EDT With: Perlita Galaviz Where: [address] [address] 2024 8:20 AM EDT With: Lara Sanchez MD Where: [address] [address]- Medications What How Much When Instructions Unchanged ascorbic acid (Vitamin C) 500 Milligram By Mouth Every day Unchanged aspirin (aspirin 81 mg Oral EC Tab) 1 Tablets By Mouth Every day Unchanged ergocalciferol (Vitamin D Oral) By Mouth Every day Unchanged levothyroxine (levothyroxine 175 mcg (0.175 mg) Tab) See instructions TAKE 1 TABLET BY MOUTH ONCE DAILY Unchanged loratadine (loratadine 10 mg oral capsule) 1 Capsules By Mouth Every day Unchanged Non-Formulary Medication (Magnesium) 250 Milligram By Mouth Every day none Unchanged omega-3 polyunsaturated fatty acids ([place]-3 Fish Oil 1000 mg oral capsule) 1 Capsules ByMouth Every day Unchanged zinc sulfate (Zinc) 50 Milligram By Mouth Every day Allergies No Known Medication Allergies Problems Ongoing - Any problem that you are currently receiving treatment for. Bilateral shoulder pain BMI 40.0-44.9, adult Dyslipidemia Excessive dietary caloric intake Former smoker GERD without esophagitis Hypothyroid Obesity, morbid, BMI 40.0-49.9 Varicose veins of legs Patient Survey You may receive a survey via text or e-mail asking about your office visit. Please share your experience with us by completing your survey. We appreciate your feedback and thank you for choosing us for your care. [facility] Medicine Office/Clinic Noteon [id number] Medicine Office/Clinic NoteFapenikese island leper hospital Medicine Office/Clinic Note Chief Complaint 3m follow up The patient complains of persistent musculoskeletal pain primarily in the left shoulder associated with bone spurs. HPI Staff 3m follow up Pain characteristics: Pain location: Shoulder Intensity:only hurts when using arm. Pain has improved since last encounter. Did see ortho. Has been doing PT. Does need levothyroxine refill. History of Present Illness - The patient is a 48-year-old female presenting with musculoskeletal pain. - Bone spurs in the left shoulder causing persistent, worsened with activity. - Previous interventions include cortisone injection, physical therapy. - Sciatic discomfort and knee pain limiting physical activity for weight management. - History of morbid obesity, managed with changes in daily activity. - Chronic conditions include GERD and hypothyroidism under medical management. - Reports hyperlipidemia; dietary habits impacted by work schedule and lifestyle. - Former smoker, recent lifestyle adjustments noted. - Emphasis on the need for weight management and regular physical activity for improvement of obesity. - Discussions included dietary adjustments and participation in physical activities, especially swimming. - Ongoing management of hypothyroidism with medication refills confirmed. - Instructions on continued use of fish oil supplements for dyslipidemia management. - Recommendations for avoiding excessive caloric intake, particularly limiting intake of complex carbohydrates and saturated fats. Review of Systems PHQ Score Initial Depression Screen Score: 0 SCORE Physical Exam Vitals & Measurements T: 36.7 ???C(Tympanic) HR: 78(Peripheral) RR: 18 BP: 132/84 SpO2: 97% HT: 178 cm HT: 70 in WT: 139.6 kg WT: 307.765 lb BMI: 44.06 General: alert, no acute distress ENMT: oral mucosa moist Cardiovascular: Regular rate and rhythm, normal peripheral perfusion Respiratory: Lungs clear to auscultation, respirations non labored Extremities: no deformity, no trauma Neurological: oriented x 4, level of consciousness appropriate for age, CN II- XII intact, motor strength equal & normal bilaterally, speech normal Abdomen: Soft, Non-tender, Non-distended, + Bowel sounds Assessment/Plan 1. Excessive dietary caloric intake (R63.2: Polyphagia) - Discussed diet and exercise again. - Pt has shown she can loose weight on her own. - Discussed ways to improve. 2. Dyslipidemia (E78.5: Hyperlipidemia, unspecified) - Continue fish oil supplements. - Reduce saturated fats. - Recheck in 6 months 3. Hypothyroidism, unspecified type (E03.9: Hypothyroidism, unspecified) - Confirm medication and monitoring. 4. GERD without esophagitis (K21.9: Gastro-esophageal reflux disease without esophagitis) - Stable. - No issues. Ordered: Body Mass Index (BMI) documented 3008F Current tobacco non-user 1036F Depression Screening Negative 3352F Discharge medications reconciled with current medications in outpatient record 1111F Influenza immunization status assessed 1030F Medication list documented in medical record 1159F Most recent diastolic blood pressure 80-89 mm Hg 3079F Patient screen for fall risk: no falls in last year or 1 fall with no injury in last year 1101F Review of all meds by a prescribing practitioner or clinical pharmacist documented in EHR 1160F Systolic BP 130-139 mm Hg (Most Recent) 3075F 5. BMI 40.0-44.9, adult (Z68.41: Body mass index [BMI] 40.0-44.9, adult) - BMI education added 6. Obesity, morbid, BMI 40.0-49.9 (E66.01: Morbid (severe) obesity due to excess calories) - Emphasize activity, focus on swimming. - Structured diet advised. 7. Former smoker (Z87.891: Personal history of nicotine dependence) - Please continue to not smoke. 8. Other shoulder lesions, unspecified shoulder (M75.80) - Physical therapy continues. - Evaluate cortisone injection outcome. - 48-year-old female with history of bone spurs presenting with musculoskeletal pain. - Consumer morbid obesity impacting overall health. - Dyslipidemia management includes dietary intervention and supplementation. - Hypothyroidism under treatment with confirmed medication protocol. In our consultation, I emphasized the importance of continuous management and monitoring of her musculoskeletal pain related to bone spurs. I discussed the limited improvement from physical therapy and advised her to continue, while also assessing the cortisone injection outcomes. Weight managementwas a primary focus, with a recommendation to increase physical activity through low-impact exercises like swimming. Nutritional advice to manage caloric intake was provided, particularly avoiding high-fat foods. For hypothyroidism, I confirmed medication adherence and discussed the importance of maintaining her prescription regimen. Dyslipidemia management was supported through dietary recommendations and the continuation of fish oil supplemen (more content not included)...[facility] CenterComment on above:Result Comment: Electronically Signed By: Daniel ARCE, Lara Kidd\.br\Date and Time Signed: 10/06/24 09:31 EDTFamily Medicine Office/Clinic Noteon [phone] Medicine Office/Clinic NoteFami Medicine Office/Clinic Note Chief Complaint 1m follow up The patient is concerned with her morbid obesity and needs guidance on lifestyle modification. HPI Staff Pt presents today for 1m follow up to BL shoulder pain & dyslipidemia. Referred to Ortho for possible shoulder injections. Ortho consult in chart from 06/29/24. They thenreferred her to therapy. Referred for bariatric surgery as well. Scheduled for orientation on 07/11/24. Pt was to start fish oil due to elevated triglycerides. Has not taken meloxicam. States the injection that was given for shoulder pain relieved the pain. History of Present Illness The patient is a 48-year-old female presenting with concerns about morbid obesity. She has a documented BMI of 40.0-49.9, as per her medical records. The patient reports an increased consumption of food over the past few months, correlating with stressful periods in her life. In our conversation, she expressed awareness of her eating habits contributing to her current weight status. She noted difficulty maintaining a consistent weight management regimen and acknowledged previous unsuccessful attempts at weight reduction. Additionally, she reported consuming large meals, sometimes in social contexts, such as a [place] meal mentioned in the conversation. She is a former smoker, as indicated by her history of nicotine dependence. The patient has had a cortisone injection for shoulder pain, which she reports has been effective. She is also scheduled to meet with a bariatric specialist to explore further weight management options. There is an expressed interest in establishing a comprehensive care plan addressing both physiological and lifestyle factors contributing to her condition. - Scheduled consultation with a bariatric specialist for obesity management. - Discussion of potential lifestyle modifications, including diet and exercise, was initiated. Physical Exam Vitals & Measurements T: 36.9 ???C(Tympanic) HR: 84(Peripheral) RR: 18 BP: 134/82 SpO2: 98% HT: 70 in HT: 178 cm WT: 136.9 kg WT: 301.812 lb BMI: 43.21 General: alert, no acute distress ENMT: oral mucosa moist Cardiovascular: Regular rate and rhythm, normal peripheral perfusion Respiratory: Lungs clear to auscultation, respirations non labored Extremities: no deformity, no trauma Neurological: oriented x 4, level of consciousness appropriate for age, CN II- XII intact, motor strength equal & normal bilaterally, speech normal Abdomen: Soft, Non-tender, Non-distended, + Bowel sounds Assessment/Plan 1. Bilateral shoulder pain (M25.511: Pain in right shoulder) Continue with PT. Shot has worked well. 2. BMI 40.0-44.9, adult (Z68.41: Body mass index [BMI] 40.0-44.9, adult) BMI education added. 3. Obesity, morbid, BMI 40.0-49.9 (E66.01: Morbid (severe) obesity due to excess calories) Discussed comprehensive lifestyle modifications, including dietary adjustments and exercise. Patient has a scheduled consultation with a bariatric specialist for further evaluation and management options. Emphasized the importance of a structured weight management program. 4. Former smoker (Z87.891: Personal history of nicotine dependence) Continued monitoring without current intervention as the patient remains a former smoker without relapses. Discussed maintaining her current non-smoking status as part of her broader health maintenance plan. 5. Dyslipidemia (E78.5: Hyperlipidemia, unspecified) Continue on fish oil. 6. Excessive dietary caloric intake (R63.2: Polyphagia) Diet and exercise discussed in detail. Follow up after bariatric referral. Pain in left shoulder (M25.512: Pain in left shoulder) Orders: omega-3 polyunsaturated fatty acids, 1,000 mg = 1 cap(s), Oral, Daily, # 120 cap(s), Refills(s) 0, Pharmacy: [facility]/pharmacy #[id number], 178, cm, 07/09/24 8:22:00 EST, Height/Length Dosing, 136.9, kg, 07/09/24 8:22:00 EST, Weight Dosing 48-year-old female with a history of morbid obesity and personal history of nicotine dependence presenting for chronic condition management and lifestyle modification. The patient has a BMI of 40.0-49.9, aligning with the definition of morbid obesity. She is experiencing challenges with dietary habits and lifestyle changes necessary for effective weight management. The prior history of smoking does not appear to currently influence her condition as a former smoker. Current interventions includescheduled consultations and lifestyle discussions aimed at addressing weight management sustainably. The recent cortisone injection for shoulder discomfort has been effective, indicating proper management of musculoskeletal symptoms. In today's visit, I discussed with the patient her diagnosis of morbid obesity and the associated challenges with lifestyle modifications. We emphasized the need for dietary changes and increased physical activity as primary interventions. We planned for her to see a bariatric specialist to explore possible surgical and non-surgical opt (more content not included)...[facility] HospitalComment on above:Result Comment: Electronically Signed By: Lara Sanchez MD\.br\Date and Time Signed: 07/09/24 08:43 ESTNo Panel Informationon [id number] Uhl, [place] 07/01/2024 7:50 AM L Inj/Asp: L glenohumeral on 06/29/2024 10:21 AM Indications: pain Details: 22 G needle Medications: 1 mL betamethasone acetate-betamethasone sodium phosphate 6 (3-3) MG[facility] HealthcareAmbulatory Visit Summaryon [id number] Visit SummaryAmbulatory Visit Summary MARIANNE STEPHENSON [place] :1975 Visit Date:06/08/2024 Ambulatory Visit Instructions Your Diagnosis BMI 40.0-44.9, adult Obesity, morbid, BMI 40.0-49.9 Former smoker Bilateral shoulder pain Pain in left shoulder Your Care Team Attending Physician - Lara Sanchez MD Primary Care Physician - Lara Sanchez MD This Is Your Medications List Non-Formulary Medication (Magnesium) ascorbic acid (Vitamin C) aspirin (aspirin 81 mg Oral EC Tab) ergocalciferol (Vitamin D Oral) levothyroxine (levothyroxine 175 mcg (0.175 mg) Tab) loratadine (loratadine 10 mg oral capsule) zinc sulfate (Zinc) Procedures Performed Colonoscopy (02/24/2024), Esophagogastroduodenoscopy (02/24/2024), History of repair of umbilical hernia (2019), Cholecystectomy (2017), section (2007). Discharge Vitals Temperature (Tympanic) 36.6 ???C Heart Rate (Peripheral) 92 Respiratory Rate 18 Blood Pressure 138/86 Height 178 cm Height 70 in Weight 140.1 kg Weight 308.867 lb BMI 44.22 What to do next Scheduled Follow-Up Appointments 2024 8:15 AM EST With: Lara Sanchez MD Where: [place] [id number]- Medications What How Much When Instructions Unchanged ascorbic acid (Vitamin C) 500 Milligram By Mouth Every day Unchanged aspirin (aspirin 81 mg Oral EC Tab) 1 Tablets By Mouth Every day Unchanged ergocalciferol (Vitamin D Oral) By Mouth Every day Unchanged levothyroxine (levothyroxine 175 mcg (0.175 mg) Tab) See instructions TAKE 1 TABLET BY MOUTH ONCE DAILY Unchanged loratadine (loratadine 10 mg oral capsule) 1 Capsules By Mouth Every day Unchanged Non-Formulary Medication (Magnesium) 250 Milligram By Mouth Every day none Unchanged zinc sulfate (Zinc) 50 Milligram By Mouth Every day Allergies No Known Medication Allergies Problems Ongoing - Any problem that you are currently receiving treatment for. Bilateral shoulder pain Bloating BMI 40.0-44.9, adult Class 3 obesity Early satiety Excessive dietary caloric intake Former smoker Generalized abdominal pain GERD without esophagitis Hypothyroid Nausea Obesity due to excess calories Obesity, morbid, BMI 40.0-49.9 Stress Stress incontinence, female Varicose veins of legs Patient Survey You may receive a survey via text or e-mail asking about your office visit. Please share your experience with us by completing your survey. We appreciate your feedback and thank you for choosing us for your care. [facility] CenterFamily [facility] Office/Clinic Noteon [id number] Medicine Office/Clinic NoteFapenikese island leper hospital Medicine Office/Clinic Note Chief Complaint Elevated Triglycerides HPI Staff Marianne is a 48 year old female presenting with elevated triglycerides. Here to discuss possible statin medication. Labs done on May 14- Denies Hx of Statin use in the past. Still having Lt shoulder pain. History of Present Illness Patient presents for follow-up on lab work. Patient's triglycerides or 447 but LDL was low at 92. HDL was also low at 27. Patient wants to know what they can do for this. Patient is also struggling with her weight. Discussed bariatric surgery patient wants to have a conversation about it. Patient continues to have bilateral arm pain left worse than right. Patient did physical therapy with very minimal benefit. Patient wants to know what we can do next for her. Review of Systems PHQ Score Initial Depression Screen Score: 2 SCORE Physical Exam Vitals & Measurements T: 36.6 ???C(Tympanic) HR: 92(Peripheral) RR: 18 BP: 138/86 SpO2: 96% HT: 70 in HT: 178 cm WT: 140.1 kg WT: 308.867 lb BMI: 44.22 General: alert, no acute distress ENMT: oral mucosa moist, Cardiovascular: regular rate and rhythm, normal peripheral perfusion Respiratory: Lungs CTA, respirations non labored Extremities: no deformity, no trauma Neurological: oriented x 4, LOC appropriate for age, CN II-XII intact, motor strength equal & normal bilaterally, speech normal, more pain with movement on the left side compared to the right. Abdomen: Soft, Nontender, Non-distended, + BS Assessment/Plan 1. Bilateral shoulder pain (M25.511: Pain in right shoulder) Will send to Ortho for possible injection of the shoulder. We may need an MRI since the patient hasalready gone through physical therapy. Will move forward with the [place]. [place] [facility] [place] [facility] [place] 2. Excessive dietary caloric intake (R63.2: Polyphagia) Discussed bariatric surgery in detail. At this time I do believe this is the next best step for her. [place] [facility] [place] [facility] [place] 3. BMI 40.0-44.9, adult (Z68.41: Body mass index [BMI] 40.0-44.9, adult) BMI education added [place] [facility] [place] [facility] [place] 4. Obesity, morbid, BMI 40.0-49.9 (E66.01: Morbid (severe) obesity due to excess calories) Diet and exercise advised Or[place] [facility] [place] [facility] [place] 5. Former smoker (Z87.891: Personal history of nicotine dependence) Please continue not to smoke Ordered[place] [facility] [place] [facility] [place] 6. Dyslipidemia (E78.5: Hyperlipidemia, unspecified) Encouraged the patient to start fish oils. Diet and exercise advised. No statins at this time. Orders: omega-3 polyunsaturated fatty acids, 1,000 mg = 1 cap(s), Oral, Daily, # 120 cap(s), Refills(s) 0, Pharmacy: [facility]/pharmacy #[id number], 178, cm, 06/08/24 7:36:00 EST, Height/Length Dosing, 140.1, kg, 06/08/24 7:36:00 EST, Weight Dosing Follow-up No qualifying data available Problem List/Past Medical History Ongoing Bilateral shoulder pain Bloating BMI 40.0-44.9, adult Class 3 obesity Dyslipidemia Early satiety Excessive dietary caloric intake Former smoker Generalized abdominal pain GERD without esophagitis Hypothyroid Nausea Obesity due to excess calories Obesity, morbid, BMI 40.0-49.9 Stress Stress incontinence, female Varicose veins of legs Historical No qualifying data Procedure/Surgical History Colonoscopy (02/24/2024), Esophagogastroduodenoscopy (02/24/2024), History of repair of umbilical hernia (2019), Cholecystectomy (2017), section (2007). Medications aspirin 81 mg Oral EC Tab, 81 mg= 1 tab(s), Oral, Daily levothyroxine 175 mcg (0.175 mg) Tab, See Instructions loratadine 10 mg oral capsule, 10 mg= 1 cap(s), Oral, Daily Magnesium, 250 mg, Oral, Daily [place]-3 Fish Oil 1000 mg oral capsule, 1000 mg= 1 cap(s), Oral, Daily Vitamin C, 500 mg, Oral, Daily Vitamin D Oral, Oral, Daily Zinc, 50 mg, Oral, Daily Allergies No Known Medication Allergies Social History Alcohol - Denies Alcohol Use, 04/11/2022 Never., 05/13/2024 Substance Abuse Past. Marijuana, Methamphetamines, Prescription medications. Previous treatment: None., 06/08/2024 Tobacco Former smoker, quit more than 30 days ago Tobacco Use:. Never Smokeless Tobacco Use:. Cigarettes, Stopped age 46 Years. Household tobacco concerns: No. Yes, 06/08/2024 Family History Depression: Mother. Diabetes mellitus type 2: Grandparent and Grandparent. Hypertension: Mother. Immunizations Vaccine Date Status Comments influenza virus vaccine, inactivated - Not Given Patient Refuses influenza virus vaccine, inactivated - Not Given Patient Refuses influenza virus vaccine, inactivated - Not Given Current Acute Illness Moderate to Severe influenza virus (more content not included)...[facility] Comment on above:Result Comment: Electronically Signed By: Lara Sanchez MD\.br\Date and Time Signed: 06/08/24 08:22 ESTAmbulatory Visit Summaryon [id number] Visit SummaryAmbulatory Visit Summary MARIANNE STEPHENSON [place] :1975 Visit Date:05/14/2024 Ambulatory Visit Instructions Your Diagnosis Left shoulder pain Hypothyroid Cough Class 3 obesity Former smoker BMI 40.0-44.9, adult Your Care Team Attending Physician - DAWIT BLANCHARD CNP Primary Care Physician - Lara Sanchez MD This Is Your Medications List Non-Formulary Medication (Magnesium) ascorbic acid (Vitamin C) aspirin (aspirin 81 mg Oral EC Tab) benzonatate (Tessalon 100 mg Cap) ergocalciferol (Vitamin D Oral) levothyroxine (levothyroxine 175 mcg (0.175 mg) Tab) loratadine (loratadine 10 mg oral capsule) zinc sulfate (Zinc) Procedures Performed Colonoscopy (02/24/2024), Esophagogastroduodenoscopy (02/24/2024), History of repair of umbilical hernia (2019), Cholecystectomy (2017), section (2007). Discharge Vitals Temperature (Oral) 36.4 ???C Heart Rate (Peripheral) 82 Respiratory Rate 18 Blood Pressure 126/84 Height 178.0 cm Height 70 in Weight 135.9 kg Weight 299.608 lb BMI 42.89 Medications What How Much When Why Instructions New benzonatate (Tessalon 100 mg Cap) 1 Capsules By Mouth 3 times a day Cough Duration: 7 Days Pickup at [facility]/pharmacy #[id number] Unchanged ascorbic acid (Vitamin C) 500 Milligram By Mouth Every day Unchanged aspirin (aspirin 81 mg Oral EC Tab) 1 Tablets By Mouth Every day Unchanged ergocalciferol (Vitamin D Oral) By Mouth Every day Unchanged levothyroxine (levothyroxine 175 mcg (0.175 mg) Tab) See instructions TAKE 1 TABLET BY MOUTH ONCE DAILY Unchanged loratadine (loratadine 10 mg oral capsule) 1 Capsules By Mouth Every day Unchanged Non-Formulary Medication (Magnesium) 250 Milligram By Mouth Every day none Unchanged zinc sulfate (Zinc) 50 Milligram By Mouth Every day Pharmacy Information [facility]/pharmacy #[id number]: [address], [place] [id number] [phone] Allergies No Known Medication Allergies Problems Ongoing - Any problem that you are currently receiving treatment for. Bilateral shoulder pain Bloating Class 3 obesity Early satiety Excessive dietary caloric intake Former smoker Generalized abdominal pain GERD without esophagitis Hypothyroid Nausea Obesity due to excess calories Stress Stress incontinence, female Varicose veins of legs Patient Survey You may receive a survey via text or e-mail asking about your office visit. Please share your experience with us by completing your survey. We appreciate your feedback and thank you for choosing us for your care. [facility] CenterCHEMISTRYOrdered By: SYSTEM SYSTEM on 09-04-0602Folinyl [Mass/Vol]3.6 g/dLNormal3.3 - 5.0 gm/dLRemisol Chem Albumin/Globulin [Mass ratio]1.0 {ratio}Low1.1 - 2.2Remisol ChemALP [Catalytic activity/Vol]102 [iU]/dHigh21 - 98 Int._Unit/LRemisol ChemALT No additional P-5'-P [Catalytic activity/Vol]7 [iU]/dNormal6 - 46 Int._Unit/LRemisol ChemAnion gap [Moles/Vol]10 mmol/LNormal6 - 16 mEq/LRemisol ChemAST [Catalytic activity/Vol]15 [iU]/dNormal5 - 43 Int._Unit/LRemisol ChemBilirubin [Mass/Vol] 0.4 mg/dLNormal0.0 - 1.1 mg/dLRemisol ChemCalcium [Mass/Vol]8.6 mg/dLLow8.9 - 11.1 mg/dLRemisol ChemChloride [Moles/Vol]107 mmol/OWkddwv120 - 111 mmol/L Remisol ChemCholesterol [Mass/Vol]174 mg/sULlxxel385 - 200 mg/dLRemisol Chem Cholesterol in HDL [Mass/Vol]27 mg/dLInvalid Interpretation CodeRemisol Chem Comment on above:Result Comment: '>= 60 LOW RISK' '<= 40 HIGH RISK'Cholesterol in LDL [Mass/Vol]92 mg/dLNormal<=129mg/dLRemisol ChemCholesterol in VLDL [Mass/Vol]Unable to Calculate mg/dLInvalid Interpretation Code7 - 40 mg/dLRemisol ChemComment on above:Result Comment: 'UNABLE TO REPORT. TRIG > 400 mg/dl'CO2 [Moles/Vol]24 mmol/YBovobq26 - 31 mmol/L Remisol ChemCreatinine [Mass/Vol]0.7 mg/dLNormal0.5 - 1.3 mg/dLRemisol ChemeGFR 106 mL/min/1.73 a7Cmmlfg>=59mL/min/1.73 y2Ufpoenk ChemGlobulin (S) [Mass/Vol]3.5 g/dLNormal1.4 - 4.0 gm/dLRemisol ChemGlucose [Mass/Vol]128 mg/pEUsbkbv32 - 199 mg/dLRemisol ChemPotassium [Moles/Vol]3.8 mmol/LNormal3.5 - 5.3 mmol/LRemisol ChemProtein [Mass/Vol]7.1 g/dLNormal6.0 - 7.8 gm/dLRemisol ChemSodium [Moles/Vol]137 mmol/OHfhlbh741 - 145 mmol/LRemisol ChemTriglyceride [Mass/Vol] 447 mg/dLHigh<=149mg/dLRemisol ChemTSH Qn0.74 m[IU]/LNormal0.34 - 5.60 mcIU/mL Remisol ChemUrea nitrogen [Mass/Vol]9 mg/dLNormal5 - 21 mg/dLRemisol ChemUrea nitrogen/Creatinine [Mass ratio]13 mg/dyAvhthp54 - 20Remisol ChemCMPon 15-62-1265Xikaknx [Mass/Vol]3.6 g/dLNormal3.3-5.0[facility] Comment on above:Performed By: #### [id number] #### [facility] [address], [place] [address]Ddsvhkr/Globulin (S) [Mass conc ratio]1.0Low1.1-2.2FSouthwest General Health CenterComment on above:Performed By: #### [id number] #### [facility] [address], [place] [address]FIF [Catalytic activity/Vol]102 Int._Unit/AZpau12-24MdwjxgSt. John Of God HospitalComment on above:Performed By: #### [id number] #### [facility] [address], [place] [address]WJK No additional P-5'-P [Catalytic activity/Vol]7 Int._Unit/L Normal6-46St. [facility] HospitalComment on above:Performed By: #### [id number] #### [facility] [address], [place] [address]KYC [Catalytic activity/Vol]15 Int._Unit/LNormal5-43St. [facility] HospitalComment on above:Performed By: #### [id number] #### [facility] [address], [place] [address]Gvtquxefd [Mass/Vol]0.4 mg/dLNormal0.0-1.1FSouthwest General Health CenterComment on above:Performed By: #### [id number] #### [facility] [address], [place] [address]Osnpecbc (S) [Mass/Vol]3.5 g/dLNormal1.4-4.0St. [facility] HospitalComment on above:Performed By: #### [id number] #### [facility] [address], [place] [address]Xmdcjxh [Mass/Vol]7.1 g/dLNormal6.0-7.8St. [facility] God HospitalComment on above:Performed By: #### [id number] #### [facility] [address], [place] [address]Xwjhq gap [Moles/Vol]10 mmol/LNormal6-16St. [facility] HospitalComment on above:Performed By: #### [id number] #### [facility] [address], [place] [address]Soigxyg [Mass/Vol]8.6 mg/dLLow8.9-11.1FSouthwest General Health CenterComment on above:Performed By: #### [id number] #### [facility] [address], [place] [address]Kazzhxim [Moles/Vol]107 mmol/ZDhsins635-902WmygneSt. John Of God HospitalComment on above:Performed By: #### [id number] #### [facility] [address], [place] [address]TY8 [Moles/Vol]24 mmol/HLpurki67-27MaoojsSt. John Of God Hospital Comment on above:Performed By: #### [id number] #### [facility] [address], [place] [address]Iwdigbikms [Mass/Vol]0.7 mg/dLNormal0.5-1.3FSouthwest General Health CenterComment on above:Performed By: #### [id number] #### [facility] [address], [place] [address]Sncovzi [Mass/Vol]128 mg/aWIzmwxi84-403DgoipeSt. John Of God HospitalComment on above:Performed By: #### [id number] #### [facility] [address], [place] [address]Kginwrjsb [Moles/Vol]3.8 mmol/LNormal3.5-5.3FSouthwest General Health CenterComment on above:Performed By: #### [id number] #### [facility] [address], [place] [address]Sdmjry [Moles/Vol]137 mmol/BVtllft166-286XqutjlSt. John Of God HospitalComment on above:Performed By: #### [id number] #### [facility] [address], [place] [address]Oofg nitrogen [Mass/Vol]9 mg/dLNormal5-21St. [facility] Of God HospitalComment on above:Performed By: #### [id number] #### [facility] [address], [place] [address]Dngc nitrogen/Creatinine [Mass ratio]13 No RpqenJxksmm14-51 [facility] God HospitalComment on above:Performed By: #### [id number] #### [facility] [address], [place] [address]Hnufer Medicine Office/Clinic Noteon [id number] Medicine Office/Clinic NoteFapenikese island [facility] hospital Medicine Office/Clinic Note HPI Staff Marianne is a 48 year old female presenting for medication check, she states she is here for her shoulder Shoulder Pain characteristics: Pain location: left shoulder Intensity:9/10 with lifting Onset: 2 weeks ago Medication used: Nothing Pain is radiating to her forearm, if she doesn't move it, it is not bad just acky off and pain History of Present Illness 48 [address] old patient of Dr. Sanchez presents for hypothyroidism, cough and left shoulder pain. She states she is doing well with the levothyroxine. She denies any intolerance to cold or heat. She reportsshe believes her last TSH check was just a few months ago-her last TSH level was drawn 09/2022. She is in agreement to have this checked today. She reports she has a concern with left shoulder pain. She reports the pain in her shoulder has been present off and on for the last 3 to 6 months. She reports her shoulder hurts when she attempts tolift something. She rates the pain in the left shoulder in 8-9 out of 10 when lifting. She states she has not used anything niig-wry-wpktqvk for the pain. She is asking for something for her cough. She reports when she has a coughing fit she leaks urine. She reports she has a cold and last time this occurred she was told to use Kegel exercises and was prescribed tessalon perles. Review of Systems PHQ Score Initial Depression Screen Score: 2 SCORE Constitutional: no fever, no chills, no sweats, no weakness Skin: no Jaundice, no rash, no lesions, nopetechiae ENMT: no ear pain, no sore throat, no congestion, no hoarseness Respiratory: no shortness of breath, moderate cough, no orthopnea, no wheezing Cardiovascular: no chest pain, no palpitations, no edema Musculoskeletal: no back pain, no trauma Neurologic: no headache, no dizziness, no numbness, no weakness Psychiatric: no sleeping problems, no irritability, no mood swings/depression. Additional ROS info: Except as noted in the above Review of Systems and in the History of Present Illness all other systems have been reviewed and are negative or noncontributory. Physical Exam Vitals & Measurements T: 36.4 ???C(Oral) HR: 82(Peripheral) RR: 18 BP: 126/84 SpO2: 98% HT: 70 in HT: 178.0 cm WT: 135.9 kg WT: 299.608 lb BMI: 42.89 General: alert, no acute distress Skin: warm, dry Head: no trauma, normocephalic Eye: normal conjunctiva, sclera clear Back: No tenderness, Normal ROM, Normal alignment. Extremities: no deformity, no trauma; normal ROM to the left shoulder; normal strength; no numbnessor decreased sensation Neurological: oriented x 4, LOC appropriate for age speech normal Psychiatric: cooperative, affect appropriate for age, normal judgement, normal psychiatric thoughts. Assessment/Plan 1. Left shoulder pain (M25.512: Pain in left shoulder) Awaiting Xray results Will refer to physical therapy or ortho pending Xray results Ordered: Lab Specimen Collect [id number] XR Shoulder Complete Left 2. Hypothyroid (E03.9: Hypothyroidism, unspecified) Stable Controlled No medication refills today Ordered: Lab Specimen Collect [id number] Thyroid Stimulating Hormone 3. Cough (R05.9: Cough, unspecified) Ordered: benzonatate, 100 mg = 1 cap(s), Oral, TID, X 7 day(s), # 21 cap(s), Refills(s) 0, Pharmacy: [facility]/pharmacy #[id number], 178, cm, 05/14/24 8:08:00 EST, Height/Length Dosing, 135.9, kg, 05/14/24 8:08:00 EST, Weight Dosing Lab Specimen Collect [id number] 4. Class 3 obesity (E66.01: Morbid (severe) obesity due to excess calories) The standard range for ages 18 and older is >=18.5 and < 25 kg/m2. Your BMI today was above this range, this falls in the overweight to obese category and there are medical benefits to weight loss. We can offer counselling, referral, and/or medical support in addressing this problem. Your BMIand weight management will be followed at subsequent visits. Ordered: Comprehensive Metabolic Panel Lab Specimen Collect [id number] Lipid Panel Thyroid Stimulating Hormone 5. Former smoker (Z87.891: Personal history of nicotine dependence) Encouraged to continue asa non-smoker Ordered: Comprehensive Metabolic Panel Lab Specimen Collect [id number] Lipid Panel Thyroid Stimulating Hormone 6. BMI 40.0-44.9, adult (Z68.41: Body mass index [BMI] 40.0-44.9, adult) The standard range for ages 18 and older is >=18.5 and < 25 kg/m2. Your BMI today was above this range, this falls in the overweight to obese category and there are medical benefits to weight loss. We can offer counselling, referral, and/or medical support in addressing this problem. Your BMIand weight management will be followed at subsequent visits. Ordered: Comprehensive Metabolic Panel Lipid Panel Thyroid Stimulating Hormone Total time spent preparing the chart, conducting of the encounter with the patient and family and time spent documenting, reviewing, and ordering tests was 40 minutes. Follow-up No qualifying data available Pat (more content not included)...NormalSt. John Of God HospitalComment on above:Result Comment: Electronically Signed By: DAWIT BLANCHARD CNP\.garland\Date and Time Signed: 05/14/24 08:58 ESTLipid Panelon [id number] in VLDL [Mass/Vol]UTCAbnormal7-40St. [facility] Of God HospitalComment on above:Result Comment: 'UNABLE TO REPORT. TRIG > 400 mg/dl' Result verified by Discern Rule. Performed result UTC (Unable to Calculate) was sent as an Alpha code due the inability to calculate a valid numeric value. Performed By: #### [id number] #### [facility] [address], [place] [address]Hjbsqtjjmjc [Mass/Vol]174 mg/xSPmiyhg106-158FkyynsSt. John Of God HospitalComment on above:Performed By: #### [id number] #### [facility] [address], [place] [address]Qylroxklitw in HDL [Mass/Vol]27 mg/dLInvalid Interpretation CodeSt. John Of God HospitalComment on above:Result Comment: '>= 60 LOW RISK' '<= 40 HIGH RISK'Performed By: #### [id number] #### [facility] [address], [place] [address]Bjpxlwaomza in LDL [Mass/Vol]92 mg/dLNormal<=129St. [facility] Of God HospitalComment on above:Performed By: #### [id number] #### [facility] [address], [place] [address]Yvicgdxblncl [Mass/Vol]447 mg/dLHigh<=149St. [facility] Of God HospitalComment on above:Performed By: #### [id number] #### [facility] [address], [place] [address]YMNat 92-89-4071NHN Qn0.74 m[IU]/LNormal0.34-5.60St. [facility] God HospitalComment on above:Performed By: #### [id number] #### [facility] [address] [place] [address]lSOPef 13-25-9734dXKK667 mL/min/1.73 i6Mdxuhn>=59St. [facility] Of God HospitalComment on above:Performed By: #### [id number] #### [facility] [address], [place] [address]O Urineon [id number] identified Cx Nom (U)Microbiology PROCEDURE: Urine Culture [R1] SOURCE: U CleanCatch BODY SITE: COLLECTED DATE/TIME: 05/07/2024 09:51 EST RECEIVED DATE/TIME: 05/07/2024 18:56 EST START DATE/TIME: 05/07/2024 18:56 EST FREE TEXT SOURCE: SANTO TAVAREZ, DAWIT BLANCHARD CNP, DAWIT [place] FINAL REPORTS Final Report [] Verified Date/Time: 05/09/2024 10:38 EST 75,000 cfu/ml Escherichia coli 2,000 cfu/ml Mixed skin contaminants SUSCEPTIBILITY RESULTS LEGEND: S=Susceptible, N/R=Not Reported, Blank=Data not available, or drug not advisable or tested, I=Intermediate, ESBL=Extended spectrum beta-lactamase, R=Resistant, TFG=Thymidine-dependent strain, ALEX=Beta-lactamase positive, ROBERT=mcg/m;(mg/L), S*=Predicted susceptible interp, R*=Predicted resistant interp EC Antibiotic ROBERT Dilutn ROBERT Interp Ampicillin <=8 S Ampicillin/ <=8/4 S Sulbactam Aztreonam <=4 S Cefazolin <=2 S Cefepime <=2 S Ceftazidime <=1 S Ceftazidime/ <=8 S Avibactam Ceftriaxone <=1 S Cefuroxime <=4 S Ciprofloxacin <=0.25 S Ertapenem <=0.5 S Gentamicin <=2 S Levofloxacin <=0.5 S Meropenem <=1 S Nitrofurantoin <=32 S Piperacillin/ <=8 S Tazobactam Tetracycline <=4 S Tobramycin <=2 S Trimethoprim/ <=2/38 S Sulfa Performing Locations R1: This test was performed at: [facility], [address] [place] [address] [place], [address]- , [place], UuhhsqPtjlqeMetroHealth Parma Medical CenterComment on above:Performed By: #### [id number] #### [facility] [address], [place] [address]Vsbhmbtbhl Visit Summaryon [id number] Visit Summary Ambulatory Visit Summary MARIANNE STEPHENSON :1975 Visit Date:05/07/2024 Ambulatory Visit Instructions Your Diagnosis UTI symptoms Former smoker BMI 40.0-44.9, adult, Body mass index [BMI] 40.0-44.9, adult Morbid obesity with BMI of 40.0-44.9, adult Coughing Your Care Team Attending Physician - DAWIT BLANCHARD CNP Primary Care Physician - Lara Sanchez MD This Is Your Medications List Non-Formulary Medication (Magnesium) ascorbic acid (Vitamin C) aspirin (aspirin 81 mg Oral EC Tab) ergocalciferol (Vitamin D Oral) levothyroxine (levothyroxine 175 mcg (0.175 mg) Tab) loratadine (loratadine 10 mg oral capsule) zinc sulfate (Zinc) Procedures Performed Colonoscopy (02/24/2024), Esophagogastroduodenoscopy (02/24/2024), History of repair of umbilical hernia (2019), Cholecystectomy (2017), section (2007). Discharge Vitals Temperature (Oral) 36.5 ???C Heart Rate (Peripheral) 76 Respiratory Rate 20 Blood Pressure 134/86 Height 178.0 cm Height 70 in Weight 136.7 kg Weight 301.372 lb BMI 43.14 What to do next Scheduled Follow-Up Appointments 2023 9:00 AM EST With: Lara Sanchez MD Where: [facility] Medicine [address] [address]- Medications What How Much When Instructions Unchanged ascorbic acid (Vitamin C) 500 Milligram By Mouth Every day Unchanged aspirin (aspirin 81 mg Oral EC Tab) 1 Tablets By Mouth Every day Unchanged ergocalciferol (Vitamin D Oral) By Mouth Every day Unchanged levothyroxine (levothyroxine 175 mcg (0.175 mg) Tab) See instructions TAKE 1 TABLET BY MOUTH ONCE DAILY Unchanged loratadine (loratadine 10 mg oral capsule) 1 Capsules By Mouth Every day Unchanged Non-Formulary Medication (Magnesium) By Mouth Every day none Unchanged zinc sulfate (Zinc) By Mouth Every day Allergies No Known Medication Allergies Problems Ongoing - Any problem that you are currently receiving treatment for. Bilateral shoulder pain Bloating Class 3 obesity Early satiety Excessive dietary caloric intake Former smoker Generalized abdominal pain GERD without esophagitis Hypothyroid Nausea Obesity due to excess calories Stress Stress incontinence, female Varicose veins of legs Patient Survey You may receive a survey via text or e-mail asking about your office visit. Please share your experience with us by completing your survey. We appreciate your feedback and thank you for choosing us for your care. [facility] Medicine Office/Clinic Noteon [id number] Medicine Office/Clinic NoteFapenikese island leper hospital Medicine Office/Clinic Note HPI Staff Lisa is a 48 year old female presenting with UTI, and congestion Onset: Started Saturday Symptoms: burning, frequency urgency OTC used: Cranberr vitamins Last UTI: a few years a go Hx of kidney stones: none UA in office documented in chart Onset: Started Saturday Body aches: no Chills: no Cough: yes Sore throat: no Fever: no Headache: no Nasal congestion: yes Loss of taste: no Loss of smell: no Eye itching/watering: no Sneezing: no SOB: no wheezing when she lays on her left side Known Exposure: no Remedies tried: Mucinex, Ny quil COVID tested today IO- NEG FLU tested today IO- NEG STREP tested IO today- NEG History of Present Illness 48 [address] old patient of Dr. Sanchez presents today for an acute visit for evaluation of congestion & UTI symptoms. She states the congestion started 4 days ago. She reports having intermittent dry coughing spells throughout the day but has noticed thick green sputum some mornings. She has tried Mucinex at home and denies any fevers. She states the UTI symptoms started 4 days ago as well. She states she has not had a UTI in a couple years but would usually get them after intercourse. She reportsintense pain and burning on urination and spasms afterwards. Review of Systems PHQ Score Initial Depression Screen Score: 0 SCORE Constitutional: no fever, no chills, no sweats, no weakness Skin: no Jaundice, no rash, no lesions, nopetechiae ENMT: no ear pain, no sore throat, no congestion, no hoarseness Respiratory: no shortness of breath, mild cough, no orthopnea, no wheezing Cardiovascular: no chest pain, no palpitations, no edema Musculoskeletal: no back pain, no trauma Neurologic: no headache, no dizziness, no numbness, no weakness Psychiatric: no sleeping problems, no irritability, no mood swings/depression. Additional ROS info: Except as noted in the above Review of Systems and in the History of Present Illness all other systems have been reviewed and are negative or noncontributory. Physical Exam Vitals & Measurements T: 36.5 ???C(Oral) HR: 76(Peripheral) RR: 20 BP: 134/86 SpO2: 99% HT: 70 in HT: 178.0 cm WT: 136.7 kg WT: 301.372 lb BMI: 43.14 General: alert, no acute distress Head: no trauma, normocephalic Neck: Trachea midline, no adenopathy, no tenderness Eye: normal conjunctiva, sclera clear ENMT: TM's clear, oral mucosa moist, no pharyngeal erythema or exudate Cardiovascular: regular rate and rhythm, normal peripheral perfusion Respiratory: Lungs CTA, respirations non labored Chest wall: no deformity. Gastrointestinal: soft, non distended, no tenderness, no guarding. Neurological: oriented x 4, LOC appropriate for age, speech normal Psychiatric: cooperative, affect appropriate for age, normal judgement, normal psychiatric thoughts. Assessment/Plan 1. UTI symptoms (R39.9: Unspecified symptoms and signs involving the genitourinary system) Encouraged fluids Educated to void before and after intercourse Awaiting culture report Encouraged cleansing of toys f/u PRN Ordered: sulfamethoxazole-trimethoprim, 1 tab(s), Oral, BID for 3 day(s), 6 tab(s), Refill(s) 0, [id number], 178, cm, 05/07/24 9:37:00 EST, Height/Length Dosing, 136.7, kg, 05/07/24 9:37:00 EST, Weight Dosing Influenza Type A&B POC 59898 Rapid COVID POC 85419 Rapid Strep POC 90766 Urine Culture Urnls Dip Stick Auto w/o Microscopy POC 06479 2. Former smoker (Z87.891: Personal history of nicotine dependence) Encouraged to continue with a non-smoker 3. BMI 40.0-44.9, adult, (Z68.41: Body mass index [BMI] 40.0-44.9, adult)Body mass index [BMI] 40.0-44.9, adult The standard range for ages 18 and older is >=18.5 and < 25 kg/m2. Your BMI today was above this range, this falls in the overweight to obese category and there are medical benefits to weight loss. We can offer counselling, referral, and/or medical support in addressing this problem. Your BMIand weight management will be followed at subsequent visits. 4. Morbid obesity with BMI of 40.0-44.9, adult (E66.01: Morbid (severe) obesity due to excess calories) The standard range for ages 18 and older is >=18.5 and < 25 kg/m2. Your BMI today was above this range, this falls in the overweight to obese category and there are medical benefits to weight loss. We can offer counselling, referral, and/or medical support in addressing this problem. Your BMIand weight management will be followed at subsequent visits. 5. Coughing (R05.9: Cough, unspecified) Encouraged OTC mucinex as needed Ordered: Influenza Type A&B POC 70947 Rapid COVID POC 53479 Rapid Strep POC 04449 Urnls Dip Stick Auto w/o Microscopy POC 36728 Follow-up No qualifying data available Problem List/Past Medical History Ongoing Bilateral shoulder pain Bloating Class 3 obesity Early satiety Excessive dietary caloric intake Former smoker Generalized abdominal pain GERD witho (more content not included)...[facility] Comment on above:Result Comment: Electronically Signed By: DAWIT BLANCHARD CNP\.garland\Date and Time Signed: 05/07/24 10:45 ESTH&P Updateon 04-14-2024H&P Update H&P Update Patient: MARIANNE STEPHENSON Age: 48 years Sex: Female : 1975 Associated Diagnoses: None Author: Laura ARCE, Abdifatah Pavon Preoperative Information Chief compliant/Indication for procedure: Abdominal pain and GERD Chief Complaint as above Review of Systems All systems reviewed, negative except as mentioned above Physical Examination No qualifying data available General: in Nad Abdomen: Soft, NTND Impression and Plan Diagnosis: Abdominal pain and GERD -EGD and colonoscopyMet[facility]Health Parma Medical CenterComment on above:Result Comment: wrong FIN #Reminderson [id number] From: Corin Lopez To: [facility] - Reminders/Recalls; Sent: 03/06/2024 14:26:30 EDT Show up: 01/23/2029 14:24:00 EDT Subject: Ambulatory Reminder- 5-10 years colonoscopy Due Date/Time: 02/23/2029 14:24:00 EDT Reminder/Recall Colonoscopy- 02/24/2024 Dr Sanchez 5-10 year recall Recommendations: Repeat colonoscopy:: 5-10 years . Final Diagnosis (Verified) A: STOMACH, BIOPSY: - Antral and oxyntic-type gastric mucosa with focal lymphoid aggregates. - No Helicobacter pylori microorganisms identified with immunohistochemical stain. B: SMALL BOWEL, DUODENUM, BIOPSY: - Small bowel mucosa with prominent Ab's glands and focal foveolar metaplasia suggestive of chronic duodenitis. - No evidence of celiac disease identified. C: RECTUM, POLYPECTOMY: - Hyperplastic polyp.[facility] CenterResult Letter Officeon [id number] Letter OfficeResult Letter Office March 06, 2024 MARIANNE STEPHENSON [address] [place] [id number] : 1975 Below is a summary of the results of your recent colonoscopy. COLONOSCOPY WITH POLYP REMOVAL OR BIOPSY Type of polyp hyperplastic polyps - benign - not considered precancerous Based on your results we are recommending you repeat the procedure in 5 years You will be placed in our reminder system and will receive a reminder letter prior to your next duedate. Please call the office if you would like to schedule a follow up appointment with Dr Sanchez. [facility] [phone] Healthurgical Pathology Reporton [id number] Pathology ReportParkview Health Bryan Hospital [address] [place] [address]- Surgical Pathology Report Collected Date/Time: 02/24/2024 09:40 EDT Pathologist: Jose Evans MD Received Date/Time: 02/24/2024 10:54 EDT Laura ARCE, Abdifatah Sanchez MD, Abdifatah Wells Surgical Pathology Report - 02/26/2024 16:42 EDT - Auth (Verified) Final Diagnosis A: STOMACH, BIOPSY: - Antral and oxyntic-type gastric mucosa with focal lymphoid aggregates. - No Helicobacter pylori microorganisms identified with immunohistochemical stain. B: SMALL BOWEL, DUODENUM, BIOPSY: - Small bowel mucosa with prominent Ab's glands and focal foveolar metaplasia suggestive of chronic duodenitis. - No evidence of celiac disease identified. C: RECTUM, POLYPECTOMY: - Hyperplastic polyp. (Electronic Signature) Yan. Cristina MD 02/26/2024 16:42 Clinical Information Pre-Op Diagnosis: GERD , bloating, nausea, abdominal pain, constipation Procedure: EGD, colonoscopy Post-Op Diagnosis: 1.Irregular Z-line 2.Bilious fluids in the stomach 3.Erosive gastropathy 4.Rectal polyp 5.Internal hemorrhoids Specimen(s) Received A: Gastric biopsy B: Duodenal biopsy C: Rectal polyp Gross Description A: Received in formalin labeled with patient name, number, and gastric biopsy are three fragments of crockett/pink tissue ranging from 0.1 to 0.2 cm in greatest dimension. Specimen is entirely submitted in one cassette. B: Received in formalin labeled with patient name, number, and duodenal biopsy are multiple fragments of crockett tissue ranging from less than 0.1to 0.3 cm in greatest dimension. Specimen is entirely submitted in one cassette. C: Received in formalin labeled with patient name, number, and rectal polyp is a single fragment of crockett tissue measuring 0.5 cm greatest dimension. Specimen is entirely submitted in one cassette. (DC) DC:[facility] Microscopic Description A-C: Microscopic examination performed unless gross only specified. The use of one or more reagents in the above tests is regulated as an analyte specific reagent (ASR). The test or tests are ordered following initial H&E microscopic examination. The performance characteristics were determined by the [facility] Surgical Pathology Report Collected Date/Time: 02/24/2024 09:40 EDT Pathologist: Jose Evans MD Received Date/Time: 02/24/2024 10:54 EDT Laura ARCE, Abdifatah Sanchez MD, Abdifatah Pavon Microscopic Description Center. They have not been cleared or approved by the US Food and Drug Administration. The FDA has determined that such clearance or approval is not necessary. These tests are used for clinical purposes. They should not be regarded as investigational or for research. Appropriate positive and negative controls are performed and are acceptable. [facility] CenterComment on above:Performed By: #### [id number] #### [facility] [address] [place], [place] [address]Ootu OR Intraoperative Recordon [id number] OR Intraoperative RecordMain OR Intraoperative Record IntraOp Document Type FT Summary Primary Physician: Abdifatah Sanchez MD Finalized Date/Time: 02/25/24 10:49:16 Pt. Name: MARIANNE STEPHENSON/Sex: 1975 Female Med Rec #: [id number] Physician: Abdifatah Sanchez MD Financial #: [id number] Pt. Type: O Room/Bed: / Admit/Disch: 02/24/24 08:24:48 - 02/24/24 23:59:59 Institution: Case Times FT Entry 1 Patient Times In Room 02/24/24 09:33:00 Out Room 02/24/24 09:56:00 Procedure Times Start 02/24/24 09:36:00 Stop 02/24/24 09:54:00 Anesthesia Times Start 02/24/24 09:33:00 Stop 02/24/24 09:56:00 Time at [place] 02/24/24 09:45:00 Last Modified By: Min Barrera RN 02/24/24 09:57:49 General Comments: 0941 EGD completed MSRN 0942 Colonoscopy started MSRN 02/25/24 Chart opened to review and send charges LRoth CSFA Case Attendance FT Entry 1 Entry 2 Entry 3 Case Attendee Marry KNIGHT, Romulo Barrera RN, Sully Lee Role Performed [employer] - Primary Staff - Other Time In 02/24/24 09:33:00 02/24/24 09:33:00 02/24/24 09:33:00 Time Out 02/24/24 09:56:00 02/24/24 09:56:00 02/24/24 09:56:00 Procedure EGD AND COLONOSCOPY(.) EGD AND COLONOSCOPY(.) EGD AND COLONOSCOPY(.) Comments Dr. Pfeiffer supervising help in room case Last Modified By: Holly RN, Min Barrera RN, Min Barrera RN, Min Amaya 02/24/24 09:57:50 02/24/24 09:57:50 02/24/24 09:57:50 Entry 4 Entry 5 Entry 6 Case Attendee Lara GANDARA, Dorcas Sanchez MD, Erica Darby Role Performed Scrub - Primary Surgeon - Primary Staff - Other Time In 02/24/24 09:33:00 02/24/24 09:33:00 02/24/24 09:36:00 Time Out 02/24/24 09:56:00 02/24/24 09:56:00 02/24/24 09:56:00 Procedure EGD AND COLONOSCOPY(.) EGD AND COLONOSCOPY(.) EGD AND COLONOSCOPY(.) Comments help in room Last Modified By: Holly RN, Min Barrera RN, Min Barrera RN, Min Amaya 02/24/24 09:57:50 02/24/24 09:57:50 02/24/24 09:57:50 Perioperative Protocols FT Pre-Care Text: Implements protective measures prior to operative or invasive procedure, confirms identity before the operative or invasive procedure, verifies operative procedure, surgical site, and laterality Entry 1 Procedure(s) EGD AND COLONOSCOPY(.) Patient Identity Birthday, ID Band Verified (select at Check, Patient least 2): Participation Consents / H and P Anesthesia Consent, Operative Site N/A Verified H&P, Surgery/Procedure Marking Verified Consent Surgical Site No Laterality Verified n/a Verified Procedure Verified Yes Correct Patient Yes Position Verified Availability Equipment, Medication Prep Dry n/a Verified (If Applicable) PreOp Antibiotic No Time Out Romulo Tuttle CRNA, Given Participants Holly GUADARRAMA, Min EMichael Micala E, Schafer CST, Laura Fletcher MD, Abdifatah Pavon Time Out Complete 02/24/24 09:34:00 Outcomes Met? Yes Last Modified By: Min Barrera RN 02/24/24 09:39:42 Post-Care Text: The patient is free from signs and symptoms of injury caused by extraneous objects Allergy Information FT Pre-Care Text: Verifies allergies Entry 1 Allergies Reviewed? Yes Allergies Reviewed Self/Patient With Outcomes Met? Yes Last Modified By: Min Barrera RN 02/24/24 09:36:52 Post-Care Text: The patient received appropriate medication(s) safely administered during the perioperative period Surgical Procedures FT Entry 1 Procedure Description Procedure EGD AND COLONOSCOPY Modifiers . Surgeon Description EGD with gastric biopsy and duodenal biopsy. Colonoscopy with rectal polypectomy Primary Procedure Yes Primary Surgeon Laura ARCE, Abdifatah Pavon Start 02/24/24 09:36:00 Stop 02/24/24 09:54:00 Anesthesia Type General Surgical Service Gastroenterology Wound Class 2 - Clean-Contaminated Last Modified By: Min Barrera RN 02/24/24 09:55:27 General Case Data FT Pre-Care Text: Classifies surgical wound, implements aseptic technique, initiates traffic control Entry 1 Case Information OR ENDO 1 FT Case Level Level 2 Wound Class 2 - Clean-Contaminated Specialty Gastroenterology ASA Class 3 Preop Diagnosis Gerd, Bloating, Nausea, Postop Same As Preop No Abdominal pain, Constipation Postop Diagnosis EGD- Gastropathy. Outcomes Met? Yes Colonoscopy- Rectal polyp, Internal hemorrhoids Last Modified By: Min Barrera RN 02/24/24 09:57:45 Post-Care Text: The patient is free from signs and symptoms of infection Skin Assessment (Pre Procedure) FT Pre-Care Text: Implements protective measures to prevent skin/ tissue injury due to thermal or mechanical sources Evaluates for signs and symptoms of physical injury to skin and tissue Entry 1 Skin Integrity Dry, Warm Skin Abnormality No Outcomes Met? Yes Last Modified By: Min Barrera RN 02/24/24 09:37:09 Post-Care Text: The patient is free from signs and symptoms of injury caused by extraneous object (more content notincluded)...[facility] CenterDischarge Instructionson [id number] InstructionsDischarge Instructions MARIANNE STEPHENSON :1975 Visit Date:02/24/2024 Inpatient Discharge Instructions Your Care Team Admitting Physician - Abdifatah Sanchez MD Referring Physician - Abdifatah Sanchez MD Reason for Your Visit GERD WITHOUT ESOPHAGITIS, CONSTIPATION, FAMILY HISTORY OF ESOPHAGEAL CANCER, NAUSEA, BLOATING, EARLY SATIETY, GENERALIZED ABDOMINAL PAIN Your Diagnosis Erosive gastropathy Hemorrhoids, internal Rectal polyp Tests Performed Pathology Tissue Exam -- Results Pending -- Please visit your patient portal for your results or contact your primary care physician. This Is Your Medications List Non-Formulary Medication (Magnesium) ascorbic acid (Vitamin C) aspirin (aspirin 81 mg Oral EC Tab) ergocalciferol (Vitamin D Oral) levothyroxine (levothyroxine 175 mcg (0.175 mg) Tab) loratadine (loratadine 10 mg oral capsule) zinc sulfate (Zinc) Procedure History History of repair of umbilical hernia (2019), Cholecystectomy (2017), section (2007). Discharge Vitals Temperature (Temporal Artery) 36.7 ?C Heart Rate (Monitored) 82 Respiratory Rate 10 Blood Pressure 100/53 Height 178 cm Weight 138 kg BMI 43.56 What to do next Instructions From Your Doctor No qualifying data available. New Follow Up Appointments after Discharge Follow Up with Laura ARCE, Abdifatah Pavon, [facility], [facility] When: Comments: office will call for follow up Where: [address] [place] [address], [address] [place] [address]- [phone] Medications What How Much When Instructions Next Dose Changed ergocalciferol (Vitamin D Oral) By Mouth Every day Unchanged ascorbic acid (Vitamin C) 500 Milligram By Mouth Every day Unchanged aspirin (aspirin 81 mg Oral EC Tab) 1 Tablets By Mouth Every day Unchanged levothyroxine (levothyroxine 175 mcg (0.175 mg) Tab) See instructions TAKE 1 TABLET BY MOUTH ONCE DAILY Unchanged loratadine (loratadine 10 mg oral capsule) 1 Capsules By Mouth Every day Unchanged Non-Formulary Medication (Magnesium) By Mouth Every day none Unchanged zinc sulfate (Zinc) By Mouth Every day Test Results No qualifying data available. Allergies No Known Medication Allergies Problems Ongoing - Any problem that you are currently receiving treatment for. Bilateral shoulder pain Bloating Class 3 obesity Early satiety Excessive dietary caloric intake Former smoker Generalized abdominal pain GERD without esophagitis Hypothyroid Nausea Obesity due to excess calories Stress Stress incontinence, female Varicose veins of legs Education Materials Upper Endoscopy, Adult, Care After After the procedure, it is common to have a sore throat. It is also common to have: ? Mild stomach pain or discomfort. ? Bloating. ? Nausea. Follow these instructions at home: The instructions below may help you care for yourself at home. Your health care provider may give you more instructions. If you have questions, ask your health care provider. ? If you were given a sedative during the procedure, it can affect you for several hours. Do not drive or operate machinery until your health care provider says that it is safe. ? If you will be going home right after the procedure, plan to have a responsible adult: ? Take you home from the hospital or clinic. You will not be allowed to drive. ? Care for you for the time you are told. ? Follow instructions from your health care provider about what you may eat and drink. ? Return to your normal activities as told by your health care provider. Ask your health care provider what activities are safe for you. ? Take ldcl-lhw-qyltrlu and prescription medicines only as told by your health care provider. Contact a health care provider if you: ? Have a sore throat that lasts longer than one day. ? Have trouble swallowing. ? Have a fever. Get help right away if you: ? Vomit blood or your vomit looks like coffee grounds. ? Have bloody, black, or tarry stools. ? Have a very bad sore throat or you cannot swallow. ? Have difficulty breathing or very bad pain in your chest or abdomen. These symptoms may be an emergency. Get help right away. Call 911. ? Do not wait to see if the symptoms will go away. ? Do not drive yourself to the hospital. Summary ? After the procedure, it is common to have a sore throat, mild stomach discomfort, bloating, and nausea. ? If you were given a sedative during the procedure, it can affect you for several hours. Do not drive until your health care provider says that it is safe. ? Follow instructions from your health care provider about what you may eat and drink. ? Return to your normal activities as told by your health care provider. This information is not intended to replace advice given to you by your health care provider. Make sure you discuss any questions you have with your heal (more content not included)...[facility] CenterComment on above:Result Comment: Electronically Signed By: Gin Pat RN\.br\Date and Time Signed: 02/24/24 10:11 EDTMain OR PACU I Recordon [id number] OR PACU I RecordMain OR PACU I Record PACU Phase I Document Type FT Summary Primary Physician: Abdifatah Sanchez MD Finalized Date/Time: 02/24/24 10:56:47 Pt. Name: GAUTAMMARIANNE/Sex: 1975 Female Med Rec #: [id number] Physician: Abdifatah Sanchez MD Financial #: [id number] Pt. Type: O Room/Bed: / Admit/Disch: 02/24/24 08:24:48 - Institution: Case Times PACU I FT Pre-Care Text: Identifies barriers to communication and implements measures to provide psychological support Develops individualized plan of care, and ensures continuity of care Maintains patient's dignity and privacy, and maintains patient confidentiality Identifies and reports philosophical, cultural, and spiritual beliefs and values Identifies individual values and wishes concerning care Implements aseptic technique, and administers prescribed antibiotic therapy and immunizing agents as ordered Evaluates postoperative tissue perfusion Implements thermoregulation measures, and monitors body temperature Evaluates postoperative respiratory status Evaluates postoperative cardiac status Evaluates postoperative neurological status Assesses pain control, collaborated in initiating patient-controlled analgesia and implements alternative methods of pain control Verifies allergies, administers prescribed medications and solutions, evaluates response to medications Entry 1 In PACU I 02/24/24 09:59:00 Discharge from PACU 02/24/24 10:29:00 I Outcomes Met? Yes Last Modified By: Gin Pat RN 02/24/24 10:56:28 Post-Care Text: The patient demonstrates knowledge of the expected response to the operative or invasive procedure The patient's care is consistent with the individualized perioperative plan of care The patient's rightto privacy is maintained The patient's value system, lifestyle, ethnicity, and culture are considered, respected, and incorporated into the perioperative plan of care The patient participates in decisions affecting his or her perioperative plan of care The patient is free from signs and symptoms of infection The patient has wound/tissue perfusion consistent with or improved from baseline levels established preoperatively The patient is at or returning to normothermia at the conclusion of the immediate postoperative period The patient's respiratory function is consistent with or improved from baseline levels established preoperativelyThe patient's cardiovascular status is consistent with or improved from baseline levels established preoperatively The patient's cardiovascular status is consistent with or improved from baseline levels established preoperatively The patient demonstrates and/or reports adequate pain control throughout the perioperative period The patient received appropriate medication(s), safely administered during the perioperativeperiod Acuity Level PACU I FT Entry 1 Start Time 02/24/24 09:59:00 Stop Time 02/24/24 10:29:00 Acuity Level Acuity Level I Last Modified By: Gin Pat RN 02/24/24 10:56:44 Finalized By: Gin Pat RN Document Signatures Signed By: Gin Pat RN 02/24/24 10:56[facility] CenterMain OR PACU II Recordon [id number] OR PACU II RecordMain OR PACU II Record PACU Phase II Document Type FT Summary Primary Physician: Abdifatah Sanchez MD Finalized Date/Time: 02/24/24 11:06:28 Pt. Name: MARIANNE STEPHENSON Lolis Dennison/Sex: 1975 Female Med Rec #: [id number] Physician: Abdifatah Sanchez MD Financial #: [id number] Pt. Type: O Room/Bed: / Admit/Disch: 02/24/24 08:24:48 - Institution: Case Times PACU II FT Pre-Care Text: Identifies barriers to communication and implements measures to provide psychological support and determines knowledge level Develops individualized plan of care, and ensures continuity of care Maintains patient's dignity and privacy, and maintains patient confidentiality Identifies and reports philosophical, cultural, and spiritual beliefs and values Identifies individual values and wishes concerning care administers prescribed antibiotic therapy and immunizing agents as ordered, Evaluates postoperative tissue perfusion Implements thermoregulation measures, and monitors body temperature Evaluates postoperative respiratory statusEvaluates postoperative cardiac status Evaluates postoperative neurological status Assesses pain control, collaborated in initiating patient-controlled analgesia and implements alternative methods of pain control Verifies allergies, administers prescribed medications and solutions, evaluates response to medications Entry 1 In PACU II 02/24/24 09:59:00 Discharge from PACU 02/24/24 10:29:00 II Outcomes Met? Yes Last Modified By: Gin Pat RN 02/24/24 11:04:17 Post-Care Text: The patient demonstrates knowledge of the expected response to the operative or invasive procedure The patient's care is consistent with the individualized perioperative plan of care The patient's rightto privacy is maintained The patient's value system, lifestyle, ethnicity, and culture are considered, respected, and incorporated into the perioperative plan of care The patient participates in decisions affecting his or her perioperative plan of care. The patient is free from signs and symptoms of infection The patient has wound/tissue perfusion consistent with or improved from baseline levels established preoperatively The patient is at or returning to normothermia at the conclusion of the immediate postoperative period The patient's respiratory function is consistent with or improved from baseline levels established preoperativelyThe patient's cardiovascular status is consistent with or improved from baseline levels established preoperatively The patient's neurological status is consistent with or improved from baseline levels established preoperatively The patient demonstrates and/or reports adequate pain control throughout the perioperative period The patient received appropriate medication(s), safely administered during the perioperativeperiod Finalized By: Gin Pat RN Document Signatures Signed By: Gin Pat RN 02/24/24 11:06[facility] CenterMain OR Preoperative Recordon [id number] OR Preoperative RecordMain OR Preoperative Record Holding Area Document Type FT Summary Primary Physician: Abdifatah Sanchez MD Finalized Date/Time: 02/24/24 08:59:46 Pt. Name: MARIANNE STEPHENSON/Sex: 1975 Female Med Rec #: [id number] Physician: Abdifatah Sanchez MD Financial #: [id number] Pt. Type: O Room/Bed: / Admit/Disch: 02/24/24 08:24:48 - Institution: Case Times Holding FT Pre-Care Text: Verifies consent for planned procedure, identifies individual values and wishes concerning care, includes family members in perioperative teaching Secures patient's records' belongings, and valuables, maintains patient's dignity and privacy, and maintains patient confidentiality Entry 1 In Holding 02/24/24 08:45:00 Outcomes Met? Yes Last Modified By: Letty Lugo RN 02/24/24 08:56:24 Post-Care Text: The patient participates in decisions affecting his or her perioperative plan of care The patient'sright to privacy is maintained Surgery Checklist FT Entry 1 Patient Birthday, ID Band Procedure History and Physical, Identification: Check, Patient Verification: Surgical Consent, With Participation Patient NPO after Midnight: No Date/Time: 02/24/24 02:30:00 Results Reviewed clear yellow results Personal Items: Jewelry Comments: Personal Items earrings Limitations: none Comment: Complaints of Pain: No Pain Comment: denies Operative Site n/a Availability Equipment Marking: Verified: Does Patient Smoke No Patient states Yes Comment - Adult FE-spouse postop adult Supervision supervision available Case Cancelled in No Holding Area see comments below for reason Last Modified By: Letty Lugo RN 02/24/24 08:58:46 General Comments: Pt. NPO since bowel prep finished at 10pm and drank water till 0230/AW RN Finalized By: Letty Lugo RN Document Signatures Signed By: Letty Lugo RN 02/24/24 08:58 Letty Lugo RN 02/24/24 08:59 Letty Lugo RN 02/24/24 08:59[facility] CenterOperative Reporton [id number] ReportOperative Report Patient: MARIANNE STEPHENSON Age: 48 years Sex: Female : 1975 Associated Diagnoses: None Author: Abdifatah Sanchez MD Pre-Procedure Procedure Date 02/24/2024 09:58:00 . Procedure Type: Colonoscopy with removal of tumor(s), polyp(s), or other lesion(s) by cold snare technique. Procedure provider Performed by Abdifatah Sanchez MD. Current history and physical Documented on chart. History of repair of umbilical hernia ([id number]) in 2020 at 44 Years. Comments: 04/11/2022 11:23 Mera Britton LPN Pt has had 3 surgeries. The first was for an umbilical hernia and the other two were for repairs. Cholecystectomy ([id number]) in 2018 at 42 Years. section ([id number]) in 2007 at 32 Years.. Past Medical History No active or resolved past medical history items have been selected or recorded.. Family History Hypertension Mother Diabetes mellitus type 2 Grandparent Grandparent Depression Mother . Procedure History History of repair of umbilical hernia ([id number]) in 2019 at 44 Years. Comments: 04/11/2022 11:23 Mera Britton LPN Pt has had 3 surgeries. The first was for an umbilical hernia and the other two were for repairs. Cholecystectomy ([id number]) in 2018 at 42 Years. section () in 2007 at 32 Years.. Colorectal neoplasm risk assessment Average risk. Informed Consent After discussing the rationale, risks and benefits, and alternatives to this procedure, the patient provided signed consent for the procedure. Pre-procedure diagnosis: Screening. Medications (Selected) Inpatient Medications Ordered Lactated Ringers IV Hawa 1000 mL 1,000 mL: 1,000 mL, IV, 100 mL/hr, Routine, Start date 02/24/24 7:34:00 EDT, 10 hour(s), Total volume (mL): 1,000, 138 kg, 2.61, m2 Sodium Chloride 0.9% IV Hawa 1000 mL 1,000 mL: 1,000 mL, IV, 20 mL/hr, Routine, Start date 02/24/24 6:43:00 EDT, 50 hour(s), Total volume (mL): 1,000, 138 kg, 2.61, m2 Prescriptions Prescribed levothyroxine 175 mcg (0.175 mg) Tab: See Instructions, TAKE 1 TABLET BY MOUTH ONCE DAILY, # 90 tab(s), Refills(s) 3, Pharmacy: [id number], 178, cm, 04/11/23 16:02:00 EST, Height/Length Dosing, 133.6, kg, 04/11/23 16:02:00 EST, Weight Dosing Documented Medications Documented Magnesium: Magnesium, Oral, Daily, none Vitamin C: 500 mg, Oral, Daily, Refills(s) 0, Prophylaxis Vitamin D Oral: Oral, Daily, Refills(s) 0, Prophylaxis Zinc: Oral, Daily, Refills(s) 0, Prophylaxis aspirin 81 mg Oral EC Tab: 81 mg = 1 tab(s), Oral, Daily, # 30 tab(s), Refills(s) 0, Prophylaxis loratadine 10 mg oral capsule: 10 mg = 1 cap(s), Oral, Daily, # 10 cap(s), Refills(s) 0, Allergy symptoms ASA Classification: Class III. . Monitoring: See anesthesia record. . Procedure The procedure was performed in the hospital. See anesthesia record for sedation given during procedure. The patient was positioned starting in the left lateral decubitus position. Endoscope type usedwas an adult-size. The endoscope was lubricated then introduced through the anus. The scope was advanced to the terminal ileum. No difficulties encountered during the procedure. The bowel preparationquality was good and was adequate (see polyps greater than or equal to 6 millimeters). The patient tolerated the procedure well. Time to Cecum: 3 min Withdrawal time 9 min Last colonoscopy: none Findings 1. Normal rectal exam 2. Five mm sessile polyp seen in the cecum resected with cold snare completely 3. Normal Terminal ileum 4. Internal hemorrhoids Images Procedure images: Rec_hd_video__[id number]_[id number].jpg Rec_hd_video__55_33_252.jpg Rec_hd_video__59_14_246.jpg Rec1_hd_video__00_13_049.jpg Rec_hd_video__00_31_167.jpg Rec1_hd_video__02_12_124.jpg Rec_hd_video___56_386.jpg Rec1_hd_video_2023__23T09_04_03_042.jpg . Post-Procedure Complications: none. Estimated blood loss: Minimal. Specimens: sent to pathology. Devices/ implants: none left in place. Impression and Plan Rectal polyp Internal hemorrhoids Recommendations: Repeat colonoscopy:: 5-10 years . Follow-up:: in clinic for 1-2 weeks when pathology is available. Diet:: Previous. Medication resumption:: Continue current medications, Avoid NSAIDs. Return to activities:: After 24 hours. Education and Follow-up: Counseled: Patient, Family.[facility] CenterComment on above:Result Comment: Electronically Signed By: Abdifatah Sanchez MD\.br\Date and Time Signed: 02/23/2410:00 EDTOther Comment: Missing Attachment - attachment storage system not supported [id number] Can be viewed in source system Missing Attachment - attachment storage system not supported [id number] Can be viewed in source systemMissing Attachment - attachment storage system not supported [id number] Can be viewed in source systemMissing Attachment - attachment storage system not supported [id number] Can be viewed in source systemMissing Attachment - attachment storage system not supported [id number] Can be viewed in source systemMissing Attachment - attachment storage system not supported [id number] Can be viewed in source systemMissing Attachment - attachment storage system not supported [id number] Can be viewed in source systemMissing Attachment - attachment storage system not supported [id number] Can be viewed in source system Operative ReportOperative Report Patient: MARIANNE STEPHENSON Age: 48 years Sex: Female : 1975 Associated Diagnoses: None Author: Abdifatah Sanchez MD Pre-Procedure Procedure Date 02/24/2024 09:55:00 . Procedure Type: Esophagogastroduodenoscopy with biopsy. Procedure provider Performed by Abdifatah Sanchez MD. Current history and physical Documented on chart. Informed Consent After discussing the rationale, risks and benefits, and alternatives to this procedure, the patient provided signed consent for the procedure. Pre-procedure diagnosis: anemia. Medications (Selected) Inpatient Medications Ordered Lactated Ringers IV Hawa 1000 mL 1,000 mL: 1,000 mL, IV, 100 mL/hr, Routine, Start date 02/24/24 7:34:00 EDT, 10 hour(s), Total volume (mL): 1,000, 138 kg, 2.61, m2 Sodium Chloride 0.9% IV Hawa 1000 mL 1,000 mL: 1,000 mL, IV, 20 mL/hr, Routine, Start date 02/24/24 6:43:00 EDT, 50 hour(s), Total volume (mL): 1,000, 138 kg, 2.61, m2 Prescriptions Prescribed levothyroxine 175 mcg (0.175 mg) Tab: See Instructions, TAKE 1 TABLET BY MOUTH ONCE DAILY, # 90 tab(s), Refills(s) 3, Pharmacy: [id number], 178, cm, 04/11/23 16:02:00 EST, Height/Length Dosing, 133.6, kg, 04/11/23 16:02:00 EST, Weight Dosing Documented Medications Documented Magnesium: Magnesium, Oral, Daily, none Vitamin C: 500 mg, Oral, Daily, Refills(s) 0, Prophylaxis Vitamin D Oral: Oral, Daily, Refills(s) 0, Prophylaxis Zinc: Oral, Daily, Refills(s) 0, Prophylaxis aspirin 81 mg Oral EC Tab: 81 mg = 1 tab(s), Oral, Daily, # 30 tab(s), Refills(s) 0, Prophylaxis loratadine 10 mg oral capsule: 10 mg = 1 cap(s), Oral, Daily, # 10 cap(s), Refills(s) 0, Allergy symptoms Anticoagulant/antiplatelet None. ASA Classification: Class II. . Monitoring: See anesthesia record. . Procedure The procedure was performed in the hospital. See anesthesia record for sedation given during procedure. The patient was positioned starting in the left lateral decubitus position and with safety measures. Endoscope type used was an adult- size, introduced orally, advanced to the 2nd portion of the duodenum. No difficulty was encountered during the procedure. Views were excellent. The patient tolerated the procedure well. Findings 1. Normal esophagus. Z-line at 40 cm and it was irregular. 2. Erythema in the antrum, moderate patchy with erosions. Otherwise normal stomach. Biopsies of thestomach were taken to rule out H. pylori. Bilious fluids in the stomach concerning for bile reflux 3. Normal duodenum. Images Procedure images: Rec1_hd_video_2023__T08_46_[id number].jpg Rec1_hd_video_2023__23T08_46_31_794.jpg Rec1_hd_video_2023__23T08_46_48_627.jpg Rec1_hd_video_2023__23T08_47_07_090.jpg Rec1_hd_video_2023__23T08_47_28_507.jpg Rec1_hd_video_2023__23T08_49_27_932.jpg Rec1_hd_video_2023__23T08_50_40_400.jpg Rec1_hd_video_2023__23T08_50_53_612.jpg Rec1_hd_video_2023__23T08_51_12_963.jpg . Post-Procedure Complications: none. Estimated blood loss: minimal. Specimens: sent to pathology. Devices/ implants: none left in place. Impression and Plan Irregular Z-line Bilious fluids in the stomach Erosive gastropathy Recommendations: -Resume previous diet -Resume home medications -Avoid NSAIDs -Await pathology results, follow in GI clinic in 1-2 after dischargeMet[facility] CenterComment on above:Result Comment: Electronically Signed By: Laura ARCE, Abdifatah Dodson.br\Date and Time Signed: 02/23/2409:57 EDTOther Comment: Missing Attachment - attachment storage system not supported [id number] Can be viewed in source system Missing Attachment - attachment storage system not supported [id number] Can be viewed in source systemMissing Attachment - attachment storage system not supported [id number] Can be viewed in source systemMissing Attachment - attachment storage system not supported [id number] Can be viewed in source systemMissing Attachment - attachment storage system not supported [id number] Can be viewed in source systemMissing Attachment - attachment storage system not supported [id number] Can be viewed in source systemMissing Attachment - attachment storage system not supported [id number] Can be viewed in source systemMissing Attachment - attachment storage system not supported [id number] Can be viewed in source system Missing Attachment - attachment storage system not supported [id number] Can be viewed in source systemCHEMISTRYOrdered By: SYSTEM SYSTEM on 33-32-3483Wqvoenk [Mass/Vol]3.5 g/dLNormal3.3 - 5.0 gm/dLFTMC RemisolAlbumin/Globulin [Mass ratio] 0.9 {ratio}Low1.1 - 2.2FT[facility] RemisolALP [Catalytic activity/Vol]84 [iU]/tIfumwi72 - 98 Int._Unit/LFTMC RemisolALT No additional P-5'-P [Catalytic activity/Vol]10 [iU]/dNormal6 - 46 Int._Unit/LFTMC RemisolAnion gap [Moles/Vol]10 mmol/LNormal6 - 16 mEq/LFTMC RemisolAST [Catalytic activity/Vol]18 [iU]/dNormal5 - 43 Int._Unit/LFTMC RemisolBilirubin [Mass/Vol]0.5 mg/dLNormal0.0 - 1.1 mg/dLFTMC RemisolCalcium [Mass/Vol]8.9 mg/dLNormal8.9 - 11.1 mg/dLFTMC RemisolChloride [Moles/Vol]104 mmol/TPnmjdk993 - 111 mmol/LFTMC RemisolCholesterol [Mass/Vol]174 mg/dDAimywr331 - 200 mg/dLFTMC RemisolCholesterol in HDL [Mass/Vol]30 mg/dL Invalid Interpretation CodeFTMC RemisolCholesterol in LDL [Mass/Vol]89 mg/dL Normal<=129mg/dLFTMC RemisolCholesterol in VLDL [Mass/Vol]57 mg/dLHigh7 - 40 mg/dLFTMC RemisolCO2 [Moles/Vol]26 mmol/HThafel86 - 31 mmol/LFTMC Remisol Creatinine [Mass/Vol]0.8 mg/dLNormal0.5 - 1.3 mg/dLFTMC RemisolGFR/1.73 sq M.predicted among blacks MDRD (S/P/Bld) [Vol rate/Area]mL/min/1.73 s6Jokazf >=59mL/min/1.73 m2FT Chem SGFR/1.73 sq M.predicted among non-blacks MDRD (S/P/Bld) [Vol rate/Area]mL/min/1.73 x3Nzuhci>=59mL/min/1.73 m2FT Chem S Globulin (S) [Mass/Vol]3.8 g/dLNormal1.4 - 4.0 gm/dLFTMC RemisolGlucose [Mass/Vol]109 mg/qTNfllam06 - 199 mg/dLFTMC RemisolPotassium [Moles/Vol]3.9 mmol/LNormal3.5 - 5.3 mmol/LFTMC RemisolProtein [Mass/Vol]7.3 g/dLNormal6.0 - 7.8 gm/dLFTMC RemisolSodium [Moles/Vol]136 mmol/ZLddcns180 - 145 mmol/LFTMC RemisolTriglyceride [Mass/Vol]284 mg/dLHigh<=149mg/dLFTMC RemisolTSH Qn2.07 m[IU]/LNormal0.34 - 5.60 mcIU/mLFTMC RemisolUrea nitrogen [Mass/Vol]12 mg/dL Normal5 - 21 mg/dLFTMC RemisolUrea nitrogen/Creatinine [Mass ratio]15 mg/mg Ucjkxw16 - 20FTMC RemisolHEMATOLOGYOrdered By: SYSTEM SYSTEM on 09-24-2022 Basophils/100 WBC (Bld)1.0 %Normal0.0 - 2.0 %[facility] HemeAutoSSBasophils/Leukocytes Auto (Bld) [Pure # fraction]0.1 E9/LNormal0.0 - 0.2 E9/LFTMC HemeAutoSS Eosinophils/100 WBC (Bld)2.9 %Normal0.0 - 8.0 %[facility] HemeAutoSS Eosinophils/Leukocytes Auto (Bld) [Pure # fraction]0.3 E9/LNormal0.0 - 0.5 E9/L [facility] HemeAutoSSLymphocytes/100 WBC (Bld)15.3 %Moyccf02.0 - 50.0 %[facility] HemeAutoSS Lymphocytes/Leukocytes Auto (Bld) [Pure # fraction]1.8 E9/LNormal1.0 - 4.0 E9/L [facility] HemeAutoSSMonocytes/100 WBC (Bld)5.4 %Normal4.0 - 14.0 %[facility] HemeAutoSS Monocytes/Leukocytes Auto (Bld) [Pure # fraction]0.6 E9/LNormal0.2 - 1.0 E9/L [facility] HemeAutoSSNeutrophils/100 WBC (Bld)75.4 %High36.0 - 75.0 %[facility] HemeAutoSS Neutrophils/Leukocytes Auto (Bld) [Pure # fraction]9.0 E9/LHigh2.0 - 7.5 E9/L [facility] HemeAutoSSHEMATOLOGYOrdered By: Aleta Perez on 95-31-2296Iknqctfjphd distribution width (RBC) [Ratio]13.4 %Qzpuvj11.9 - 14.2 %[facility] HemeAutoSS Hematocrit (Bld) [Volume fraction]42.4 %Wahypz74.0 - 46.0 %[facility] HemeAutoSS Hemoglobin (Bld) [Mass/Vol]14.0 g/oYXjurie20.0 - 16.0 gm/dLFTMC HemeAutoSSMCH (RBC) [Entitic mass]29.6 dcHwxtrk42.0 - 34.0 pgFTMC HemeAutoSSMCHC (RBC) [Mass/Vol]32.9 g/vFRewkba49.4 - 36.0 gm/dLFTMC HemeAutoSSMCV (RBC) [Entitic vol] 89.9 bWEeuxho28.0 - 100.0 fLFTMC HemeAutoSSPlatelet mean volume (Bld) [Entitic vol]7.3 fLNormal6.4 - 10.8 fLFTMC HemeAutoSSPlatelets (Bld) [#/Vol]316.0 E9/L Uzfyae559.0 - 500.0 E9/LFTMC HemeAutoSSRBC (Bld) [#/Vol]4.7 E12/LNormal4.3 - 5.9 E12/LFTMC HemeAutoSSWBC corrected for nucl RBC Auto (Bld) [#/Vol]11.9 E9/LHigh 4.0 - 11.0 E9/LFTMC HemeAutoSSCHEMISTRYOrdered By: SYSTEM SYSTEM on 05-09-2022 Albumin [Mass/Vol]3.2 g/dLLow3.3 - 5.0 gm/dLFTMC RemisolAlbumin/Globulin [Mass ratio]0.9 {ratio}Low1.1 - 2.2FT[facility] RemisolALP [Catalytic activity/Vol]70 [iU]/d Mbyoot04 - 98 Int._Unit/LFTMC RemisolALT No additional P-5'-P [Catalytic activity/Vol]6 [iU]/dNormal6 - 46 Int._Unit/LFTMC RemisolComment on above:Result Comment: 'Specimen hemolyzed, result may be affected. Recommend redraw.'Anion gap [Moles/Vol]16 mmol/LNormal6 - 16 mEq/LFTMC RemisolAST [Catalytic activity/Vol]21 [iU]/dNormal5 - 43 Int._Unit/LFTMC RemisolComment on above: Result Comment: 'Specimen hemolyzed, result may be affected. Recommend redraw.' Bilirubin [Mass/Vol]1.1 mg/dLNormal0.0 - 1.1 mg/dLFTMC RemisolComment on above: Result Comment: 'Specimen hemolyzed, result may be affected. Redraw is recommended.'Calcium [Mass/Vol]8.2 mg/dLLow8.9 - 11.1 mg/dLFTMC RemisolChloride [Moles/Vol]101 mmol/VCorrlb273 - 111 mmol/LFTMC RemisolCO2 [Moles/Vol]25 mmol/L Dqfiqd54 - 31 mmol/LFTMC RemisolCreatinine [Mass/Vol]0.9 mg/dLNormal0.5 - 1.3 mg/dLFTMC RemisolGFR/1.73 sq M.predicted among blacks MDRD (S/P/Bld) [Vol rate/Area]mL/min/1.73 s8Ytcslv>=59mL/min/1.73 m2FTMC Chem SGFR/1.73 sq M.predicted among non-blacks MDRD (S/P/Bld) [Vol rate/Area]mL/min/1.73 l0Zxnpnh >=59mL/min/1.73 m2FT Chem SGlobulin (S) [Mass/Vol]3.5 g/dLNormal1.4 - 4.0 gm/dLFTMC RemisolGlucose [Mass/Vol]98 mg/aYYqpegt62 - 199 mg/dLFTMC Remisol Potassium [Moles/Vol]3.6 mmol/LNormal3.5 - 5.3 mmol/LFTMC RemisolComment on above:Result Comment: 'Specimen hemolyzed. Result may be affected. Redraw is recommended.'Protein [Mass/Vol]6.7 g/dLNormal6.0 - 7.8 gm/dLFTMC RemisolSodium [Moles/Vol]138 mmol/PCklrhw790 - 145 mmol/LFTMC RemisolUrea nitrogen [Mass/Vol]8 mg/dLNormal5 - 21 mg/dLFTMC RemisolUrea nitrogen/Creatinine [Mass ratio]9 mg/mg Low10 - 20FT[facility] RemisolHEMATOLOGYOrdered By: SYSTEM SYSTEM on 05-09-2022 Basophils/100 WBC (Bld)0.8 %Normal0.0 - 2.0 %[facility] HemeAutoSSBasophils/Leukocytes Auto (Bld) [Pure # fraction]0.0 E9/LNormal0.0 - 0.2 E9/LFTMC HemeAutoSS Eosinophils/100 WBC (Bld)3.2 %Normal0.0 - 8.0 %[facility] HemeAutoSS Eosinophils/Leukocytes Auto (Bld) [Pure # fraction]0.1 E9/LNormal0.0 - 0.5 E9/L [facility] HemeAutoSSLymphocytes/100 WBC (Bld)33.5 %Pgsdxs88.0 - 50.0 %[facility] HemeAutoSS Lymphocytes/Leukocytes Auto (Bld) [Pure # fraction]1.4 E9/LNormal1.0 - 4.0 E9/L [facility] HemeAutoSSMonocytes/100 WBC (Bld)12.5 %Normal4.0 - 14.0 %[facility] HemeAutoSS Monocytes/Leukocytes Auto (Bld) [Pure # fraction]0.5 E9/LNormal0.2 - 1.0 E9/L [facility] HemeAutoSSNeutrophils/100 WBC (Bld)50.0 %Pfgmsu75.0 - 75.0 %[facility] HemeAutoSS Neutrophils/Leukocytes Auto (Bld) [Pure # fraction]2.1 E9/LNormal2.0 - 7.5 E9/L [facility] HemeAutoSSHEMATOLOGYOrdered By: Aleta Perez on 28-18-2154Noostunnbek distribution width (RBC) [Ratio]13.4 %Sfwodq83.9 - 14.2 %[facility] HemeAutoSS Hematocrit (Bld) [Volume fraction]38.5 %Ckpxqx16.0 - 46.0 %[facility] HemeAutoSS Hemoglobin (Bld) [Mass/Vol]13.2 g/eNOnfayj62.0 - 16.0 gm/dLFTMC HemeAutoSSMCH (RBC) [Entitic mass]30.4 fwLluopw98.0 - 34.0 pgFTMC HemeAutoSSMCHC (RBC) [Mass/Vol]34.4 g/gDFuoyzp68.4 - 36.0 gm/dLFTMC HemeAutoSSMCV (RBC) [Entitic vol] 88.4 eUZbgioq69.0 - 100.0 fLFTMC HemeAutoSSPlatelet mean volume (Bld) [Entitic vol]6.6 fLNormal6.4 - 10.8 fLFTMC HemeAutoSSPlatelets (Bld) [#/Vol]204.0 E9/L Jcpbeb355.0 - 500.0 E9/LFTMC HemeAutoSSRBC (Bld) [#/Vol]4.4 E12/LNormal4.3 - 5.9 E12/LFTMC HemeAutoSSWBC corrected for nucl RBC Auto (Bld) [#/Vol]4.1 E9/LNormal 4.0 - 11.0 E9/LFTMC HemeAutoSSMICRO OTHER TESTSOrdered By: Cr Christie on 08-50-9562Yyqrx COV Int NEG CtlPass (05/09/22 5:06 PM)NormalFT Man SeroRapid COV Int POS CtlPass (05/09/22 5:06 PM)NormalFT Man SeroSARS-CoV+SARS-CoV-2 (COVID-19) Ag IA.rapid Ql (Resp)Not Detected (05/09/22 5:06 PM)NormalNot DetectedMER[facility] [place] SeroXR chest 2V*on 15-95-7165TR chest 2V*[facility] [place] [address] [place] [id number] XRay Report Signed Patient: Marianne Stephenson MR#: [id number] : 1975 Acct:[id number] Age/Sex: 46 / F ADM Date: 04/16/22 Loc: [facility] Room: Type: [facility] Attending Dr: Vikki EL Copies to: NIKKO Tavarez Ordering Provider: NIKKO Tavarez Date of Service: 04/16/22 XR/XR chest 2V*: R05.1 XR chest 2V* 04/16/2022 6:02 PM SIGNS AND SYMPTOMS: Productive cough with wheezing and shortness of breath PROTOCOL: Frontal and lateral radiographs of the chest COMPARISON: None FINDINGS: The trachea is midline. The heart and mediastinal structures are within normal limits. The lung parenchyma is clear. The bony thorax is intact. XR/XR chest 2V* IMPRESSION: No acute cardiopulmonary pathology. Impression dictated by: Naman Bravo M.D.04/16/2022 6:27 PM Dictation Location: [place] [address] Transcribed By: [facility] 04/16/221826 Dictated By: Naman Bravo II, MD 04/16/221825 Signed By: 04/16/221826[facility]XR [facility] [employer] Other XR chest 2V*[facility] [employer] Other XR chest 2V*[address] [place] [address] [employer] Other XR chest 2V*[place], [place] [address] [employer] Other XR chest 2V*XRay ReportNorth [employer] Other XR chest 2V*SignedCorinth [employer] Other XR chest 2V*Patient: Marianne Stephenson MR#: [id number] [employer] Other XR chest 2V*37[address] [employer] Other XR chest 2V*: 1975 Acct:[id number] [employer] Other XR chest 2V*Age/Sex: 46 / F ADM Date: 04/16/22Corinth [employer] Other XR chest 2V*Loc: XDUC Room: Type: [facility] [employer] Other XR chest 2V*Attending Dr: Vikki Walden [facility] [employer] Other XR chest 2V*Copies to: CL[facility] TavarezUniversity [facility] [employer] Other XR chest 2V*Ordering Provider: CL[facility]arezCap[facility] [employer] Other XR chest 2V*Date of Service: 04/16/22Corinth [employer] Other XR chest 2V* XR/XR chest 2V*: R05.[facility] [employer] Other XR chest 2V*XR chest 2V* 04/16/2022 6:02 [facility] Other XR chest 2V*SIGNS AND SYMPTOMS: Productive cough with wheezing and shortness of breathsigmacare [employer] Other XR chest 2V*PROTOCOL: Frontal and lateral radiographs of the [employer] Other XR chest 2V*COMPARISON: [facility] [employer] Other XR chest 2V*FINDINGS:[employer] Other XR chest 2V*The trachea is midline. The heart and mediastinal structures are within normal limits. The lungCorinth [employer] Other XR chest 2V*parenchyma is clear. The bony thorax is intact.[facility] [employer] Other XR chest 2V* XR/XR chest 2V*[facility] [employer] Other XR chest 2V*IMPRESSION:[employer] Other XR chest 2V*No acute cardiopulmonary pathology.[facility] [employer] Other XR chest 2V*Impression dictated by: Naman Bravo M.D.04/16/2022 6:27 PMNb[facility] [employer] Other XR chest 2V*Dictation Location: [id number] [employer] Other XR chest 2V*Transcribed By: [facility] 04/16/[address] [place] [address] [employer] Other XR chest 2V*Dictated By: Naman Bravo II, MD 04/16/[address] [place] [address] [employer] Other XR chest 2V*Signed By:[employer] Other XR chest 2V*04/16/[address] [place] [address] [employer] Other CBC AUTO DIFFon 15-50-6693GMLC #0.1 103/ulNormal 0.0-0.1St. [facility] HospitalComment on above:Performed By: #### CBC #### [facility] [address] [place], [place] [address] Regi KarenBasophils/100 WBC (Bld)0.7 %Normal0.2-2.0[facility] Comment on above:Performed By: #### CBC #### [facility] [address] [place] [address] Regi KarenEO #0.2 103/ulNormal0.0-0.7The [facility] HospitalComment on above: Performed By: #### CBC #### [facility] [address] [place] [address] Regi KarenEosinophils/100 WBC (Bld)2.2 %Normal0.9-7.0[facility] Comment on above:Performed By: #### CBC #### [facility] [address] [place] [address] Regi KarenErythrocyte distribution width (RBC) [Ratio]12.5 %Ouwrfl28.0-15.0The [facility] HospitalComment on above:Performed By: #### CBC #### [facility] [address] [place] [address] Regi KarenHematocrit (Bld) [Volume fraction]41.2 %Kkehrc11.0-48.0The [facility] HospitalComment on above:Performed By: #### CBC #### [facility] [address] [place] [address] Regi KarenHemoglobin (Bld) [Mass/Vol]13.8 g/pRTvilnp90.0-16.0[facility] HospitalComment on above:Performed By: #### CBC #### [facility] [address] [place] [address] Regi KarenIG #0.03 10e3/ulNormal0.00-0.03The [facility] HospitalComment on above:Performed By: #### CBC #### [facility] [address] [place] [address] Regi KarenIG %0.3 %Normal0.0-0.5The [facility] HospitalComment on above: Performed By: #### CBC #### [facility] [address] [place] [address] Regi KarenLYMPH #1.8 103/ulNormal1.2-3.8The [facility] HospitalComment on above: Performed By: #### CBC #### [facility] [address] [place] [address] Regi KarenLymphocytes/100 WBC (Bld)20.9 %Ypfdmn52.5-60.0[facility] Comment on above:Performed By: #### CBC #### [facility] [address] [place] [address] Regi KarenMANUAL DIFF REQNONormalThe [facility] Memorial HospitalComment on above: Performed By: #### CBC #### [facility] [address] [place] [address] Regi KarenMCH (RBC) [Entitic mass]30.2 tiTzpvec95.7-34.0[facility] Comment on above:Performed By: #### CBC #### [facility] [address] [place] [address] Regi KarenMCHC (RBC) [Mass/Vol]33.5 g/uHNhbstk79.9-35.2[facility] Comment on above:Performed By: #### CBC #### [facility] [address] [place] [address] Regi KarenMCV (RBC) [Entitic vol]90.2 zATbooof74.0-99.0[facility] Comment on above:Performed By: #### CBC #### [facility] [address] [place] [address] Regi KarenMONO #0.6 103/ulNormal0.3-0.8The [facility] HospitalComment on above: Performed By: #### CBC #### [facility] [address] [place] [address] Regi KarenMonocytes/100 WBC (Bld)6.4 %Normal1.7-12.0[facility] Comment on above:Performed By: #### CBC #### [facility] [address] [place] [address] Regi KarenNEUT #6.1 103/ulNormal1.4-6.5The [facility] HospitalComment on above: Performed By: #### CBC #### [facility] [address] [place] [address] Regi KarenNeutrophils/100 WBC (Bld)69.5 %[place]16.0-75.0[facility] Comment on above:Performed By: #### CBC #### [facility] [address] [place] [address] Regi MckinneyPlatelet mean volume (Bld) [Entitic vol]8.5 fLCritically low9.5-13.5 The [facility] HospitalComment on above:Performed By: #### CBC #### [facility] [address] [place] [address] Regi FtreaRLC148 103/dmYfgzxa795-255Irb [facility] HospitalComment on above: Performed By: #### CBC #### [facility] [address] [place] [address] Regi KarenRBC4.57 106/ulNormal4.20-5.40The [facility] HospitalComment on above: Performed By: #### CBC #### [facility] [address] [place] [address] Regi SunenWBC8.7 103/ulNormal4.0-11.0St. [facility] HospitalComment on above: Performed By: #### CBC #### [facility] [address] [place] [address] Regi KarenLIPID PROFILEon [id number]-HDL RATIO NORMSEE BELOWGood Samaritan HospitalComment on above:Result Comment: 3.3 - 4.4 LOW RISK 4.4 - 7.1 AVERAGE RISK 7.1 - 11.0 MODERATE RISK >11.0 HIGH RISKPerformed By: #### CMP, LIPID, TSH #### [facility] [address] [place] [address] Regi KarenCholesterol [Mass/Vol]185 mg/dLNormal<=200[facility] Comment on above:Performed By: #### CMP, LIPID, TSH #### [facility] [address] [place] [address] Regi KarenCholesterol in HDL [Mass/Vol]42 mg/dLGood Samaritan Hospital Comment on above:Performed By: #### CMP, LIPID, TSH #### [facility] [address] [address] Regi KarenCholesterol in LDL [Mass/Vol]123.6 mg/dLGood Samaritan Hospital Comment on above:Performed By: #### CMP, LIPID, TSH #### [facility] [address] [id number] Regi KarenCholesterol.total/Cholesterol in HDL [Mass ratio]4.4 {ratio}Normal The [facility] HospitalComment on above:Performed By: #### CMP, LIPID, TSH #### [facility] [address] [address] Regi KarenHDL NORMAL> or = 60 mg/dl - LOW CARDIOVASCULAR RISK <40 mg/dl - HIGH CARDIOVASCULAR RISKGood Samaritan HospitalComdeckerville community hospital on above:Performed By: #### CMP, LIPID, TSH #### [facility] [address] [address] Regi KarenLDL CALC NORMALSEE BELOWNoMercy Health St. Vincent Medical CenterComment on above: Result Comment: <100 mg/dl OPTIMAL 100 - 129 mg/dl NEAR OR ABOVE OPTIMAL 130 - 159 mg/dl BORDERLINE HIGH 160 - 189 mg/dl HIGH >190 mg/dl VERY HIGHPerformed By: #### CMP, LIPID, TSH #### [facility] [address] [address] Regi KarenTriglyceride [Mass/Vol]97 mg/dLNormal<=150[facility] Comment on above:Performed By: #### CMP, LIPID, TSH #### [facility] [address] [place] [address] Regi KarenVLDL CALC19.4 mg/dLGood Samaritan HospitalComment on above: Performed By: #### CMP, LIPID, TSH #### [facility] [address] [place], [place] [id number] Regi KarenMRI ABDOMEN WO W CONon [id number] ABDOMEN WO W CONEXAMINATION: MRI ABDOMEN WO W CON HISTORY: Mass of left adrenal gland COMPARISON: CT abdomen and pelvis 08/03/2020, 04/21/2019 TECHNIQUE: A comprehensive MRI examination of the abdomen was performed to optimize visualization of suspected pathology. Images were obtained both before and after intravenous administration of Dotarem contrast. FINDINGS: LIVER: No enlargement, atrophy, abnormal density, or significant focal lesion. BILIARY: No visible dilatation or calcification. PANCREAS: No lesion, fluid collection, ductal dilatation, or atrophy. SPLEEN: No enlargement or focal lesion. KIDNEYS: No mass or obstruction. ADRENALS: 1.9 cm left adrenal nodule which demonstrates internal fat best seen on the in and out of phase sequences, favoring a benign adenoma. AORTA/VASCULAR: No aneurysm or dissection. RETROPERITONEUM: No mass or adenopathy. BOWEL/MESENTERY: No visible mass, obstruction, or bowel wall thickening. ABDOMINAL WALL: No mass or hernia. BONES: No bony lesion or fracture. LUNG BASES: No visible pleural disease. Lung bases not well assessed with MRI. OTHER: Negative. IMPRESSION: 1. Stable left adrenal nodule containing internal fat most consistent with a benign adenoma. Electronically authenticated by: FERNANDO ROB Date: 2020-10-13 11:36Good Samaritan HospitalPROF 14(COMP METB)on [id number] [Mass/Vol]3.2 g/dL Critically low3.5-5.0St. [facility] HospitalComment on above:Performed By: #### CMP, LIPID, TSH #### [facility] [address] [place] [address] Regi KarenAlbumin/Globulin [Mass ratio]0.7 {ratio}NormalSt. Francis Hospital Comment on above:Performed By: #### CMP, LIPID, TSH #### [facility] [address] [id number] Regi KarenALP [Catalytic activity/Vol]89 U/KQvxjxp36-308UvySt. Francis Hospital Comment on above:Performed By: #### CMP, LIPID, TSH #### [facility] [address] [id number] Regi KarenALT [Catalytic activity/Vol]9 U/LNormal9-52[facility] Comment on above:Performed By: #### CMP, LIPID, TSH #### [facility] [address] [id number] Regi KarenAnion gap [Moles/Vol]10.8 mmol/LNormalThe [facility] HospitalComment on above:Performed By: #### CMP, LIPID, TSH #### [facility] [address] [place] [address] Regi KarenAST [Catalytic activity/Vol]13 U/LCritically nxe04-17Rxw [facility] HospitalComment on above:Performed By: #### CMP, LIPID, TSH #### [facility] [address] [place] [address] Regi KarenBilirubin [Mass/Vol]0.3 mg/dLNormal0.2-1.3The [facility] Comment on above:Performed By: #### CMP, LIPID, TSH #### [facility] [address] [place] [address] Regi KarenCalcium [Mass/Vol]8.6 mg/dLNormal8.4-10.2[facility] Comment on above:Performed By: #### CMP, LIPID, TSH #### [facility] [address] [place] [address] Regi KarenChloride [Moles/Vol]107 mmol/YMcrtwm28-031Tlx [facility] Comment on above:Performed By: #### CMP, LIPID, TSH #### [facility] [address] [place] [address] Regi KarenCO2 [Moles/Vol]28.6 mmol/WNjhexw30.0-30.0[facility] Comment on above:Performed By: #### CMP, LIPID, TSH #### [facility] [address] [place] [address] Regi KarenCreatinine [Mass/Vol]1.07 mg/dLCritically high0.52-1.04The [facility] HospitalComment on above:Performed By: #### CMP, LIPID, TSH #### [facility] [address] [place] [address] Regi KarenEGFR-AF THAI>60Normal>=60The [facility] HospitalComment on above: Performed By: #### CMP, LIPID, TSH #### [facility] [address] [address] Regi KarenEGFR-NON AF RYIRGXAR47 mL/min/1.27t2Cpbqeluxjv low>=60The [facility] HospitalComment on above:Performed By: #### CMP, LIPID, TSH #### [facility] [address] [place] [address] Regi KarenGlobulin (S) [Mass/Vol]4.5 g/dLNormTwin City HospitalComment on above:Performed By: #### CMP, LIPID, TSH #### [facility] [address] [address] Regi KarenGlucose [Mass/Vol]107 mg/dLCritically tqie80-276Oyg [facility] HospitalComment on above:Performed By: #### CMP, LIPID, TSH #### [facility] [address] [place] [address] Regi KarenPotassium [Moles/Vol]4.4 mmol/LNormal3.4-5.0The [facility] Comment on above:Performed By: #### CMP, LIPID, TSH #### [facility] [address] [place] [address] Regi KarenProtein [Mass/Vol]7.7 g/dLNormal6.1-8.2The [facility] HospitalComment on above:Performed By: #### CMP, LIPID, TSH #### [facility] [address] [place] [address] Regi KarenSodium [Moles/Vol]142 mmol/DJzycnx731-283Ylq [facility] Comment on above:Performed By: #### CMP, LIPID, TSH #### [facility] [address] [place] [address] Regi KarenUrea nitrogen [Mass/Vol]12.0 mg/dLNormal7.0-17.0The [facility] HospitalComment on above:Performed By: #### CMP, LIPID, TSH #### [facility] [address] [place] [address] Regi KarenUrea nitrogen/Creatinine [Mass ratio]11.2 mg/mgNormalThGuernsey Memorial HospitalComment on above:Performed By: #### CMP, LIPID, TSH #### [facility] [address] [place] [address] Regi HernandezHon [id number] uIU/mLNormal0.470-4.680The [facility] HospitalComment on above:Performed By: #### CMP, LIPID, TSH #### [facility] [address] [place] [address] Regi SunenTSH RANGESEE BELOWNormalThe [facility] HospitalComment on above:Result Comment: <0.34 UIU/ml HYPERTHYROID 0.34-5.60 UIU/ml EUTHYROID >5.60 UIU/ml HYPOTHYROIDPerformed By: #### CMP, LIPID, TSH #### [facility] [address] [place] [address] Regi SunenCBC AUTO DIFFon [id number] #0.0 103/ulNormal0.0-0.1The [facility] HospitalComment on above:Performed By: #### CBC #### [facility] [address] [place] [address] Regi KarenBasophils/100 WBC (Bld)0.2 %Normal0.2-2.0[facility] Comment on above:Performed By: #### CBC #### [facility] [address] [place] [address] Regi SunenEO #0.2 103/ulNormal0.0-0.7The [facility] HospitalComment on above: Performed By: #### CBC #### [facility] [address] [place] [address] Regi KarenEosinophils/100 WBC (Bld)1.2 %Normal0.9-7.0The [facility] Comment on above:Performed By: #### CBC #### [facility] [address] [place] [address] Regi KarenErythrocyte distribution width (RBC) [Ratio]12.3 %Pknrqc11.0-15.0The [facility] HospitalComment on above:Performed By: #### CBC #### [facility] [address] [address] Regi KarenHematocrit (Bld) [Volume fraction]43.7 %Atworb18.0-48.0The [facility] HospitalComment on above:Performed By: #### CBC #### [facility] [address] [address] Regi KarenHemoglobin (Bld) [Mass/Vol]14.8 g/pUIegloc00.0-16.0The [facility] HospitalComment on above:Performed By: #### CBC #### [facility] [address] [address] Regi KarenIG #0.08 10e3/ulCritically high0.00-0.03The [facility] HospitalComment on above:Performed By: #### CBC #### [facility] [address] [place] [address] Regi KarenIG %0.5 %Normal0.0-0.5The [facility] HospitalComment on above: Performed By: #### CBC #### [facility] [address] [address] Regi KarenLYMPH #1.1 103/ulCritically low1.2-3.8The [facility] HospitalComment on above:Performed By: #### CBC #### [facility] [address] [place] [address] Regi KarenLymphocytes/100 WBC (Bld)6.9 %Critically low20.5-60.0The [facility] HospitalComment on above:Performed By: #### CBC #### [facility] [address] [place] [address] Regi KarenMANUAL DIFF REQNONormalThe [facility] HospitalComment on above: Performed By: #### CBC #### [facility] [address] [place] [address] Regi KarenMCH (RBC) [Entitic mass]29.8 ksVgiybp60.7-34.0The [facility] Comment on above:Performed By: #### CBC #### [facility] [address] [place], [place] [id number] Regi MckinneyMCHC (RBC) [Mass/Vol]33.9 g/eSVezmax12.9-35.2The [facility] Comment on above:Performed By: #### CBC #### [facility] [address] [place] [address] Regi SunenMCV (RBC) [Entitic vol]88.1 oDYbwxsz45.0-99.0The [facility] Comment on above:Performed By: #### CBC #### [facility] [address] [place] [address] Regi KarenMONO #0.8 103/ulNormal0.3-0.8The [facility] HospitalComment on above: Performed By: #### CBC #### [facility] [address] [place] [address] Regi KarenMonocytes/100 WBC (Bld)4.8 %Normal1.7-12.0[facility] Comment on above:Performed By: #### CBC #### [facility] [address] [place] [address] Regi SunenNEUT #14.1 103/ulCritically high1.4-6.5The [facility] HospitalComment on above:Performed By: #### CBC #### [facility] [address] [place] [address] Regi KarenNeutrophils/100 WBC (Bld)86.4 %Critically high43.0-75.0The [facility] HospitalComment on above:Performed By: #### CBC #### [facility] [address] [place] [address] Regi KarenPlatelet mean volume (Bld) [Entitic vol]8.3 fLCritically low9.5-13.5 The [facility] HospitalComment on above:Performed By: #### CBC #### [facility] [address] [place] [address] Regi XgmgxDDK577 103/rxRtjuvp584-020Gvl [facility] HospitalComment on above: Performed By: #### CBC #### [facility] [address] [place], [place] [address] Regi KarenRBC4.96 106/ulNormal4.20-5.40The [facility] [place] [facility] Centerment on above: Performed By: #### CBC #### [facility] [address] [id number] Regi MckinneyWBC16.4 103/ulCritically high4.0-11.0The [facility] on above:Performed By: #### CBC #### [facility] [address] [place], [place] [address] Regi KarenCT ABD/PELV W CONon [id number] ABD/PELV W CONCT ABD/PELV W CON, 08/03/2020 12:50 AM EST, INDICATION: DIARRHEA, UNSPECIFIED ADDITIONAL CLINICAL INFORMATION: Ordering Provider Reason For Exam: Technologist Note: Additional: None COMPARISON: None available at the time of dictation. TECHNIQUE: CT of the abdomen and pelvis was performed following oral and intravenous contrast utilizing standard protocol. CT dose reduction technique was used, including Automated Exposure Control. IV CONTRAST: 100 cc Omnipaque IV FINDINGS: Lung bases: Lung bases are clear. There is no visualized pleural or pericardial effusion. GI System: Small bowel loops are normal in caliber. There is no evidence for bowel obstruction. Liver: Liver is normally enhanced. Biliary system: There is evidence of a prior cholecystectomy There is no intra or extrahepatic biliary ductal dilatation. Spleen: Spleen is within normal limits. Pancreas: Pancreas is within normal limits. System: Kidneys are within normal limits. Urinary bladder appears grossly normal. There is a 2.2 cm left adrenal lesion, which is indeterminate measuring 41 Hounsfield units Pelvis: No pelvic mass is visualized. Peritoneal cavity: There is no significant free fluid or collection in the abdomen or pelvis. Vascular: Within normal limits. Bones: No destructive osseous changes. IMPRESSION: [ ] A 2.2 cm indeterminate lesion of the left adrenal gland. Consider follow-up evaluation with nonemergent abdominal MRI adrenal protocol No evidence for colitis, enteritis, or bowel obstruction. Electronically authenticated by: BRENT LIU Date: 2020-08-03 01:42NormalThe [facility] HospitalGI PANEL (PCR)on [id number] F 40/41Not detectedNormal NOT DETECTEDThe Aristides HospitalComment on above:Performed By: #### MONIKAANEL #### [facility] [address] [address] Regi KarenAstrovirusNot detectedNormalNOT DETECTEDThe [facility] HospitalComment on above:Performed By: #### MONIKAANEL #### [facility] [address] [address] Regi SunenC. Diff toxin A/BNot detectedNormalNOT DETECTEDThe [facility] Comment on above:Performed By: #### JANETL #### [facility] [address] [address] Regi KarenCampylobacterNot detectedNormalNOT DETECTEDThe [facility] Comment on above:Performed By: #### JANETL #### [facility] [address] [address] Regi KarenCryptosporidiumNot detectedNormalNOT DETECTEDThe [facility] Comment on above:Performed By: #### JANETL #### [facility] [address] [address] Regi KarenCyclos. CayetanensisNot detectedNormalNOT DETECTEDThe [facility] HospitalComment on above:Performed By: #### JANETL #### [facility] [address] [address] Regi SunenE. Coli X811Eic ApplicableNormalNot ApplicableSt. [facility] Hospital Comment on above:Performed By: #### JANETL #### [facility] [address] [address] Regi KarenE. histolyticaNot detectedNormalNOT DETECTEDThe [facility] Comment on above:Performed By: #### JANETL #### [facility] [address] [address] Regi KarenEAECNot detectedNormalNOT DETECTEDThe [facility] HospitalComment on above:Performed By: #### JANETL #### [facility] [address] [address] Regi KarenEIECNot detectedNormalNOT DETECTEDThe [facility] HospitalComment on above:Performed By: #### MARCELLUS #### [facility] [address] [address] Regi KarenEPECNot detectedNormalNOT DETECTEDThe [facility] HospitalComdeckerville community hospital on above:Performed By: #### MARCELLUS #### [facility] [address] [address] Regi KarenETECNot detectedNormalNOT DETECTEDThe [facility] HospitalComment on above:Performed By: #### MARCELLUS #### [facility] [address] [address] Regi KarenG. LambliaNot detectedNormalNOT DETECTEDThe [facility] HospitalComdeckerville community hospital on above:Performed By: #### MARCELLUS #### [facility] [address] [address] Regi KarenGIPANEL CONTROLSMarymount HospitalComment on above: Performed By: #### MARCELLUS #### [facility] [address] [address] Regi KarenGIPNL TRAM HEADERGI PANEL [facility] HospitalComment on above:Performed By: #### MARCELLUS #### [facility] [address] [place] [address] Regi KarenGIPNLHD ECOLIGI PANEL DIARRHEAGENIC E.COLI / SHIGELLAGood Samaritan HospitalComment on above:Performed By: #### MARCELLUS #### [facility] [address] [place] [address] Regi KarenGIPNLHD INFOSEE BELOWGood Samaritan HospitalComment on above: Result Comment: EAEC- Enteroaggregative E. Coli EPEC- Enteropathogenic E. Coli ETEC- Enterotoxigenic E. Coli lt/st STEC- Shigella-like toxin-producing E. Coli stx1/stx2 EIEC- Shigella/Enteroinvasive E. ColiPerformed By: #### MARCELLUS #### [facility] [address] [place] [address] Regi KarenGIPNLHD PARASITESGI PANEL [facility] Comment on above:Performed By: #### MARCELLUS #### [facility] [address] [address] Regi KarenGIPNLHD VIRUSGI PANEL VIRUSESNormalThe [facility] HospitalComment on above:Performed By: #### MARCELLUS #### [facility] [address] [address] Regi KarenNorovirus GI/GIINot detectedNormalNOT DETECTEDThe [facility] Comment on above:Performed By: #### MARCELLUS #### [facility] [address] [address] Regi KarenP. ShigelloidesNot detectedNormalNOT DETECTEDSt. [facility] Comment on above:Performed By: #### MARCELLUS #### [facility] [address] [address] Regi KarenRotavirus ANot detectedNormalNOT DETECTEDSt. [facility] Comment on above:Performed By: #### MARCELLUS #### [facility] [address] [address] Regi KarenSalmonellaNot detectedNormalNOT DETECTEDSt. Francis HospitalComment on above:Performed By: #### MARCELLUS #### [facility] [address] [place] [address] Regi KarenSapovirusNot detectedNormalNOT DETECTEDSt. Francis HospitalComdeckerville community hospital on above:Performed By: #### MARCELLUS #### [facility] [address] [place] [address] Regi KarenSTECNot detectedNormalNOT DETECTEDThe [facility] HospitalComment on above:Performed By: #### MARCELLUS #### [facility] [address] [place] [address] Regi KarenVibrioNot detectedNormalNOT DETECTEDThe [facility] HospitalComment on above:Performed By: #### MARCELLUS #### [facility] [address] [place] [address] Regi KarenVibrio CholeraNot detectedNormalNOT DETECTEDSt. [facility] Comment on above:Performed By: #### MARCELLUS #### [facility] [address] [place] [address] Regi KarenY. EnterocoliticaNot detectedNormalNOT DETECTEDSt. [facility] Comment on above:Performed By: #### GIPANEL #### [facility] [address] [place] [address] Regi KarenPROF 14(COMP METB)on [id number] [Mass/Vol]3.4 g/dLCritically low3.5-5.0The [facility] HospitalComment on above:Performed By: #### CMP #### [facility] [address] [place] [address] Regi KarenAlbumin/Globulin [Mass ratio]0.8 {ratio}NormalSt. Francis Hospital Comment on above:Performed By: #### CMP #### [facility] [address] [place] [address] Regi KarenALP [Catalytic activity/Vol]124 U/NBdkazy77-367GprSt. Francis Hospital Comment on above:Performed By: #### CMP #### [facility] [address] [place] [address] Regi KarenALT [Catalytic activity/Vol]79 U/LCritically high9-52The [facility] HospitalComment on above:Performed By: #### CMP #### [facility] [address] [place] [address] Regi KarenAnion gap [Moles/Vol]12.3 mmol/LNormalSt. Francis HospitalComment on above:Performed By: #### CMP #### [facility] [address] [place] [address] Regi KarenAST [Catalytic activity/Vol]113 U/LCritically pcuh77-79Sju [facility] HospitalComment on above:Performed By: #### CMP #### [facility] [address] [place] [address] Regi KarenBilirubin [Mass/Vol]0.8 mg/dLNormal0.2-1.3TMercy Health Fairfield Hospital Comment on above:Performed By: #### CMP #### [facility] [address] [place] [address] Regi KarenCalcium [Mass/Vol]8.9 mg/dLNormal8.4-10.2The [facility] Comment on above:Performed By: #### CMP #### [facility] [address] [place] [address] Regi KarenChloride [Moles/Vol]106 mmol/KFcpovb78-256Jcs [facility] Comment on above:Performed By: #### CMP #### [facility] [address] [place] [address] Regi KarenCO2 [Moles/Vol]21.4 mmol/LCritically low22.0-30.0The [facility] HospitalComment on above:Performed By: #### CMP #### [facility] [address] [place] [address] Regi KarenCreatinine [Mass/Vol]0.97 mg/dLNormal0.52-1.04The [facility] Comment on above:Performed By: #### CMP #### [facility] [address] [place], [place] [address] Regi KarenEGFR-AF THAI>60Normal>=60The Dunlap Memorial HospitalComment on above: Performed By: #### CMP #### [facility] [address] [place] [address] Regi KarenEGFR-NON AF THAI>60Normal>=60St. Francis HospitalComment on above:Performed By: #### CMP #### [facility] [address] [place] [address] Regi KarenGlobulin (S) [Mass/Vol]4.3 g/dLNormalThe Dunlap Memorial HospitalComment on above:Performed By: #### CMP #### [facility] [address] [place] [address] Regi KarenGlucose [Mass/Vol]106 mg/pHIlpplc78-939Hpl [facility]lap Memorial HospitalComment on above:Performed By: #### CMP #### [facility] [address] [place] [address] Regi KarenPotassium [Moles/Vol]3.7 mmol/LNormal3.4-5.0[facility] Comment on above:Performed By: #### CMP #### [facility] [address] [place], [place] [address] Regi KarenProtein [Mass/Vol]7.7 g/dLNormal6.1-8.2The Dunlap Memorial HospitalComment on above:Performed By: #### CMP #### [facility] [address] [place], [place] [address] Regi KarenSodium [Moles/Vol]136 mmol/LCritically apw741-895Fdf [facility] HospitalComment on above:Performed By: #### CMP #### [facility] [address] [place], [place] [address] Regi KarenUrea nitrogen [Mass/Vol]12.0 mg/dLNormal7.0-17.0The Dunlap Memorial HospitalComment on above:Performed By: #### CMP #### [facility] [address] [place] [id number] Regi KarenUrea nitrogen/Creatinine [Mass ratio]12.4 mg/mgNormalThe Dunlap Memorial HospitalComment on above:Performed By: #### CMP #### [facility] [address] [place], [place] [address] Regi KarenBasic Metabolic Panelon [id number] gap [Moles/Vol]10 mmol/L9 - 17 mmol/LMercy Health- [place], KYBun/Cre Tzipv08Bpssz Health- [place], KYCalcium [Mass/Vol]8.9 mg/dL8.6 - 10.4 mg/dLMercy Health- [place], KYChloride [Moles/Vol]105 mmol/L98 - 107 mmol/LMercy Health- [place], KYCO2 [Moles/Vol]25 mmol/L20 - 31 mmol/L [facility]- [place], KYCreatinine [Mass/Vol]0.85 mg/dL0.5 - 0.9 mg/dLMercy Health- [place], KYGFR >60>60 mL/minMercy Health- [place], KYGFR Non->60>60 mL/minMercy Health- [place], KYGFR/1.73 sq M predicted among non- blacks MDRD (S/P/Bld) [Vol rate/Area][facility], FLComment on above: Average GFR for 40-49 years old: 99 mL/min/1.73sq m Chronic Kidney Disease: <60 mL/min/1.73sq m Kidney failure: <15 mL/min/1.73sq m eGFR calculated using average adult body mass. Additional eGFR calculator available at: http://www.[employer]/multiple_crcl_2012.htm GFR/1.73 sq M predicted among non-blacks MDRD (S/P/Bld) [Vol rate/Area]NOT REPORTEDGib[place], KYGlucose [Mass/Vol]111 mg/yEErat04 - 99 mg/dLProMedica Bay Park Hospital, FLInterpretation and review of laboratory resultsAbnormalGibbon, KYPotassium [Moles/Vol]4.7 mmol/L3.7 - 5.3 mmol/[facility], FLComdeckerville community hospital on above:SPECIMEN SLIGHTLY HEMOLYZED, RESULTS MAY BE ADVERSELY AFFECTED.Sodium [Moles/Vol]140 mmol/L135 - 144 mmol/[facility], FLUrea nitrogen [Mass/Vol]10 mg/dL6 - 20 mg/dLProMedica Bay Park Hospital, FLBasic Metabolic Prof on 03-11-2020(cont.)NormalAccess Hospital DaytonComment on above:Result Comment: Average GFR for 40-49 years old: 99 mL/min/1.73sq m Chronic Kidney Disease: <60 mL/min/1.73sq m Kidney failure: <15 mL/min/1.73sq m eGFR calculated using average adult body mass. Additional eGFR calculator available at: http://www.[employer]/multiple_crcl_2011.htmPerformed By: #### MG PARK, BMP #### [facility] [address] [place] [address] Flash Oven Operator: Frantz Caban gap [Moles/Vol]10 mmol/LNormal9-17Access Hospital DaytonComment on above:Performed By: #### CDP, MG, BMP #### [facility] [address] [place] [address] Flash Oven Operator: Valentino Myers MDBUN/CRE Wuvli27Miajkh4-10SmgmiAccess Hospital DaytonComdeckerville community hospital on above:Performed By: #### CDP, MG, BMP #### [facility] [address] [place] [address]. [place] [address] Flash Oven Operator: KVNG Cabanalcium [Mass/Vol]8.9 mg/dLNormal8.6-10.4MerMultiCare Valley HospitalComdeckerville community hospital on above:Performed By: #### CDP, MG, BMP #### [facility] [address] [place] [address] Flash Oven Operator: KVNG Cabanhloride [Moles/Vol]105 mmol/ZRebfgi90-289EmfjxMultiCare Valley HospitalComdeckerville community hospital on above:Performed By: #### CDP, MG, BMP #### [facility] [address] [place] [address] Flash Oven Operator: Valentino Myers MDCO2 [Moles/Vol]25 mmol/GUvzklu15-80NsvmlAccess Hospital DaytonComdeckerville community hospital on above:Performed By: #### CDP, MG, BMP #### [facility] [address] [place] [address]. [place] [address] Flash Oven Operator: KVNG Cabanreatinine [Mass/Vol]0.85 mg/dLNormal0.50-0.90 [facility] DaytonComdeckerville community hospital on above:Performed By: #### CDP, MG, BMP #### [facility] [address] [place] [address]. [place] [address] Flash Oven Operator: MUSHTAQ Caban, Amer>60Normal>60[facility] Chelan Community HospitalComment on above:Performed By: #### CDP, MG, BMP #### [facility] [address] [place] [address] Flash Oven Operator: Valentino Myers MDGFR,non Amer>60Normal>60[facility] Community HospitalComment on above:Performed By: #### CDP, MG, BMP #### [facility] [address] [place] [address] Flash Oven Operator: Valentino Myers MDGlucose [Mass/Vol]111 mg/iFQqlz85-69Zfetn Lake Chelan Community HospitalComment on above:Performed By: #### CDP, MG, BMP #### [facility] [address] [place] [address] Flash Oven Operator: DEANA Cabanotassium [Moles/Vol]4.7 mmol/LNormal3.7-5.3 [facility] DaytonComdeckerville community hospital on above:Result Comment: SPECIMEN SLIGHTLY HEMOLYZED, RESULTS MAY BE ADVERSELY AFFECTED.Performed By: #### CDP, MG, BMP #### [facility] [address] [place] [address] Flash Oven Operator: ALY Cabanodium [Moles/Vol]140 mmol/OHmtjjj641-917ZenwbMultiCare Valley HospitalComdeckerville community hospital on above:Performed By: #### CDP, MG, BMP #### [facility] [address] [place] [address] Flash Oven Operator: Valentino Myers MDUrea nitrogen [Mass/Vol]10 mg/dLNormal6-20[facility] HospitalComdeckerville community hospital on above:Performed By: #### CDP, MG, BMP #### [facility] [address] [place] [address] Flash Oven Operator: ALY Cabantaging:NOT REPORTEDNormalMercy Lake Chelan Community HospitalComment on above:Performed By: #### CDP, MG, BMP #### [facility] [address] [place] [place] [address] Flash Oven Operator: Valentino Myers [facility] auto differentialon [id number] (Bld) [#/Vol]0.03 10*3/[facility] [place], KYBasophils/100 WBC (Bld)0 %0 - 2 % [facility], KYDifferential TypeNOT REPORTEDMorrow County Hospital [place], KYEosinophils (Bld) [#/Vol]10*3/[facility]- [place], KYEosinophils/100 WBC (Bld)0 %Low1 - 4 % [facility] [place], KYErythrocyte distribution width (RBC) [Ratio]12.2 %11.8 - 14.4 %[facility], KYHematocrit (Bld) [Volume fraction]39.7 %36.3 - 47.1 % [facility], KYHemoglobin (Bld) [Mass/Vol]13.1 g/dL11.9 - 15.1 g/dLProMedica Bay Park Hospital, KYImmature granulocytes (Bld) [#/Vol]1 %Slzl3AhchjMorrow County Hospital [place], [place] Immature granulocytes (Bld) [#/Vol]0.08 10*3/[facility]- [place], [place] Interpretation and review of laboratory resultsAbnormRiverview Health Institute, [place] Lymphocytes (Bld) [#/Vol]1.87 10*3/[facility] [place], KYLymphocytes/100 WBC (Bld)16 %Low24 - 43 %[facility], KYMCH (RBC) [Entitic mass]30.6 pg25.2 - 33.5 pgUniversity Hospitals Health System- [place], KYMCHC (RBC) [Mass/Vol]33.0 g/dL28.4 - 34.8 g/dLMorrow County Hospital [place], KYMCV (RBC) [Entitic vol]92.8 fL82.6 - 102.9 fLMorrow County Hospital [place], [place] Monocytes (Bld) [#/Vol]0.90 10*3/[facility], KYMonocytes/100 WBC (Bld)8 %3 - 12 %[facility], KYPlatelet mean volume (Bld) [Entitic vol]9.5 fL8.1 - 13.5 fLProMedica Bay Park Hospital, KYPlatelets (Bld) [#/Vol]232 10*3/uLProMedica Bay Park Hospital, KYPlatelets (Bld) [#/Vol]NOT REPORTEDProMedica [facility], KYRBC (Bld) [#/Vol]4.28 10*6/uL3.95 - 5.11 m/[facility], FLRBC morphology finding Nom (Bld)NOT REPORTEDProMedica [facility] Hospital, FLSegmented neutrophils/100 WBC (Bld)75 %High36 - 65 % [facility], KYSegs Absolute8.68HighProMedica Bay Park Hospital, KYWBC (Bld) [#/Vol] 0.0 10*3/uL0.0 per 100 WBCProMedica Bay Park Hospital, KYWBC (Bld) [#/Vol]11.6 10*3/uLHigh [facility], KYWBC MorphologyNOT REPORTEDProMedica Bay Park Hospital, KYCBC with Diff on [id number]. Basophil0.03 k/uLNormal0.00-0.20Access Hospital DaytonComment on above:Performed By: #### CDP, MG, BMP #### [facility] [address] [place] [address] Flash Oven Operator: Marco Antonio Caban.Imm.Granulocyte0.08 k/uLNormal0.00-0.30 Access Hospital DaytonComment on above:Performed By: #### CDP, MG, BMP #### [facility] [address] [place] [address] Flash Oven Operator: Marco Antonio Caban.Neutrophil (Seg)8.68 k/uLHigh1.50-8.10Access Hospital DaytonComment on above:Performed By: #### CDP, MG, BMP #### [facility] [address] [place] [address] Flash Oven Operator: Valentino Myers MDBasophils/100 WBC (Bld)0 %Normal0-2[facility] Community HospitalComment on above:Performed By: #### CDP, MG, BMP #### [facility] [address] [place] [address] Flash Oven Operator: MILTON Cabanosinophils (Bld) [#/Vol]10*3/uLNormal0.00-0.44 Access Hospital DaytonComment on above:Performed By: #### CDP, MG, BMP #### [facility] [address] [place] [address] Flash Oven Operator: MILTON Cabanosinophils/100 WBC (Bld)0 %Low1-4[facility] Community HospitalComment on above:Performed By: #### CDP, MG, BMP #### [facility] [address] [place] [address] Flash Oven Operator: Vlaentino Myers MDErythrocyte distribution width (RBC) [Ratio] 12.2 %Dvjatd98.8-14.4[facility] Community HospitalComment on above:Performed By: #### CDP, MG, BMP #### [facility] [address] [place] [address] Flash Oven Operator: Valentino Myers MDHematocrit (Bld) [Volume fraction]39.7 %Normal 36.3-47.1[facility] Community HospitalComment on above:Performed By: #### CDP, MG, BMP #### [facility] [address] [place] [address] Flash Oven Operator: Valentino Myers MDHemoglobin (Bld) [Mass/Vol]13.1 g/dLNormal 11.9-15.1MWaldo HospitalComment on above:Performed By: #### CDP, MG, BMP #### [facility] [address] [place] [address] Flash Oven Operator: Valentino Myers MDImmature granulocytes (Bld) [#/Vol]1 %High0 [facility] DaytonComdeckerville community hospital on above:Performed By: #### CDP, MG, BMP #### [facility] [address] [place] [address] Flash Oven Operator: Remington Cabanmphocytes (Bld) [#/Vol]1.87 10*3/uLNormal 1.10-3.70Access Hospital DaytonComment on above:Performed By: #### CDP, MG, BMP #### [facility] [address] [place] [address] Flash Oven Operator: Delvis Cabanhocytes/100 WBC (Bld)16 %Jvt50-42MbvfaAccess Hospital DaytonComment on above:Performed By: #### CDP, MG, BMP #### [facility] [address] [place] [address] Flash Oven Operator: RG Caban (RBC) [Entitic mass]30.6 rlSxfadn56.2-33.5 Access Hospital DaytonComment on above:Performed By: #### CDP, MG, BMP #### [facility] [address] [place] [address] Flash Oven Operator: RG CabanC (RBC) [Mass/Vol]33.0 g/dUDnupkp40.4-34.8 Access Hospital DaytonComment on above:Performed By: #### CDP, MG, BMP #### [facility] [address] [place] [address] Flash Oven Operator: JILL CabanCV (RBC) [Entitic vol]92.8 vQUzciou10.6-102.9 [facility] on above:Performed By: #### CDP, MG, BMP #### [facility] [address] [place] [address] Flash Oven Operator: JILL Cabanonocytes (Bld) [#/Vol]0.90 10*3/uLNormal 0.10-1.20MerNorthwest Hospital on above:Performed By: #### CDP, MG, BMP #### [facility] [address] [place] [address] Flash Oven Operator: JILL Cabanonocytes/100 WBC (Bld)8 %Normal3-12[facility] on above:Performed By: #### CDP, MG, BMP #### [facility] [address] [place] [address]. [place] [address] Flash Oven Operator: Ayad Cabanophil (Seg)75 %Gaci39-20VtrczFirelands Regional Medical Center on above:Performed By: #### CDP, MG, BMP #### [facility] [address] [place] [address] Flash Oven Operator: DELMI CabanBC Automated0.0 per 100 WBCNormal0.0[facility] on above:Performed By: #### CDP, MG, BMP #### [facility] [address] [place] [address] Flash Oven Operator: DEANA Cabanlatelet mean volume (Bld) [Entitic vol]9.5 fL Normal8.1-13.5[facility] on above:Performed By: #### CDP, MG, BMP #### [facility] [address] [place] [address] Flash Oven Operator: Markie Caban (Bld) [#/Vol]232 10*3/hIRyjvlr754-662 [facility] DaytonComdeckerville community hospital on above:Performed By: #### CDP, MG, BMP #### [facility] [address] [place] [address]. [place] [address] Flash Oven Operator: SILVIA Caban (Bld) [#/Vol]4.28 10*6/uLNormal3.95-5.11 [facility] on above:Performed By: #### CDP, MG, BMP #### [facility] [address] [place] [address]. [place] [address] Flash Oven Operator: JOHANN Caban (Bld) [#/Vol]11.6 10*3/uLHigh3.5-11.3MCommunity Regional Medical Center on above:Performed By: #### CDP, MG, BMP #### [facility] [address] [place] [address]. [place] [address] Flash Oven Operator: Mag Caban Diff PerformedNOT REPORTEDNormalMercy [facility] on above:Performed By: #### CDP, MG, BMP #### [facility] [address] [place] [address]. [place] [address] Flash Oven Operator: Markie Caban (Bld) [#/Vol]NOT REPORTEDNormalMercy [facility] Hospital on above:Performed By: #### CDP, MG, BMP #### [facility] [address] [place] [address]. [place] [address] Flash Oven Operator: SILVIA Caban morphology finding Nom (Bld)NOT REPORTED NormalMercy Lake Chelan Community HospitalComment on above:Performed By: #### CDP, MG, BMP #### [facility] [address] [place] [address] Flash Oven Operator: CHEMA CabanBC MorphologyNOT REPORTEDNormalMercy Lake Chelan Community HospitalComment on above:Performed By: #### CDP, MG, BMP #### [facility] [address] [place] [address] Flash Oven Operator: John Cabangnesiumon 32-12-9814Dhiaehfhk [Mass/Vol]1.9 mg/dLNormal1.6-2.6Mer[facility] Community HospitalComment on above:Performed By: #### CDP, MG, BMP #### [facility] [address] [place] [address] Flash Oven Operator: John Cabangnesium [Mass/Vol]1.9 mg/dL1.6 - 2.6 mg/dL [facility], KYCBCon 57-69-8801Nmkpgobexxm distribution width (RBC) [Ratio] 12.2 %Iejtxk73.8-14.4[facility] Community HospitalComment on above:Performed By: #### CBC #### [facility] [address] [place] [address] Flash Oven Operator: Valentino Myers MDHematocrit (Bld) [Volume fraction]41.7 %Normal 36.3-47.1[facility] Community HospitalComment on above:Performed By: #### CBC #### [facility] [address] [place] [address] Flash Oven Operator: Valentino Myers MDHemoglobin (Bld) [Mass/Vol]13.9 g/dLNormal 11.9-15.1Mercy Parkline HospitalComment on above:Performed By: #### CBC #### [facility] [address] [facility] [place] [address] Flash Oven Operator: RG Caban (RBC) [Entitic mass]30.6 jqPbyylw79.2-33.5 Access Hospital DaytonComment on above:Performed By: #### CBC #### [facility] [address] [place] [address] Flash Oven Operator: RG CabanC (RBC) [Mass/Vol]33.3 g/dKCtdzey78.4-34.8 [facility] DaytonComdeckerville community hospital on above:Performed By: #### CBC #### [facility] [place] [address] Flash Oven Operator: JILL CabanCV (RBC) [Entitic vol]91.9 lECujyor88.6-102.9 [facility] DaytonComdeckerville community hospital on above:Performed By: #### CBC #### [facility] [place] [address] Flash Oven Operator: SACHIN Caban Automated0.0 per 100 WBCNormal0.0[facility] on above:Performed By: #### CBC #### [facility] [address] [place] [address]. [place] [address] Flash Oven Operator: Jomar Caban mean volume (Bld) [Entitic vol]9.1 fL Normal8.1-13.5[facility] DaytonComdeckerville community hospital on above:Performed By: #### CBC #### [facility] [address] [place] [address]. [place] [address] Flash Oven Operator: Markie Caban (Bld) [#/Vol]239 10*3/kTXjduxn381-145 Access Hospital DaytonComment on above:Performed By: #### CBC #### [facility] [address] [place] [address] Flash Oven Operator: SHERIDAN CabanBC (Bld) [#/Vol]4.54 10*6/uLNormal3.95-5.11 [facility] DaytonComdeckerville community hospital on above:Performed By: #### CBC #### [facility] [address] [place] [address] Flash Oven Operator: Valentino Myers MDWBC (Bld) [#/Vol]7.9 10*3/uLNormal3.5-11.3MWaldo HospitalComdeckerville community hospital on above:Performed By: #### CBC #### [facility] [address] [place] [address] Flash Oven Operator: Valentino Myers MDErythrocyte distribution width (RBC) [Ratio] 12.2 %11.8 - 14.4 %[facility], KYHematocrit (Bld) [Volume fraction]41.7 % 36.3 - 47.1 %[facility], KYHemoglobin (Bld) [Mass/Vol]13.9 g/dL11.9 - 15.1 g/dLProMedica Bay Park Hospital, [facility]H (RBC) [Entitic mass]30.6 pg25.2 - 33.5 pgProMedica Bay Park Hospital, FLMCHC (RBC) [Mass/Vol]33.3 g/dL28.4 - 34.8 g/dLProMedica Bay Park Hospital, [place] MCV (RBC) [Entitic vol]91.9 fL82.6 - 102.9 fLUniversity Hospitals Health System- [place], KYPlatelet mean volume (Bld) [Entitic vol]9.1 fL8.1 - 13.5 fLProMedica Bay Park Hospital, KYPlatelets (Bld) [#/Vol]239 10*3/uLUniversity Hospitals Health System- [place], KYRBC (Bld) [#/Vol]4.54 10*6/uL3.95 - 5.11 m/[facility], KYWBC (Bld) [#/Vol]0.0 10*3/uL0.0 per 100 WBCProMedica Bay Park Hospital, FLWBC (Bld) [#/Vol]7.9 10*3/[facility], KYElectrolyteson 03-10-2020 Anion gap [Moles/Vol]9 mmol/LNormal9-17[facility], KYComment on above: Performed By: #### LYTE #### [facility] [address] [place] [address] Flash Oven Operator: Valentino Myers MDChloride [Moles/Vol]107 mmol/DDszskg79-561Fpapt Health- [place], FLComment on above:Performed By: #### LYTE #### [facility] [address] [place] [address] Flash Oven Operator: Valentino Myers MDCO2 [Moles/Vol]25 mmol/UTimcqa62-21Bpgta Health- [place], KYComment on above:Performed By: #### LYTE #### [facility] [address] [place] [address] Flash Oven Operator: DEANA Cabanotassium [Moles/Vol]3.7 mmol/LNormal3.7-5.3 [facility], FLComment on above:Performed By: #### LYTE #### [facility] [address] [place] [address] Flash Oven Operator: Valentino Myers MDSodium [Moles/Vol]141 mmol/OSfqvyt102-038Qqbgr Health- [place], FLComment on above:Performed By: #### LYTE #### [facility] [address] [place] [address] Flash Oven Operator: DEANA CabanOCT urine pregnancyon 04-14-8372Vrrh HCG ( test) Ql (U)NegativeNEGATIVEGibbon, KYComdeckerville community hospital on above: Specimens with hCG levels near the threshold of the test (25 mIU/mL) may give a negative or indeterminate result. In such cases, another test should be performed with a new specimen in 48-72 hours. If early is suspected clinically in this setting, correlation with quantitative serum b-hCG level is suggested. Troponinon 84-86-6235Crpntiig IJigneshcardiac [Mass/Vol]ng/mLNormal0-14Access Hospital DaytonComment on above:Result Comment: High Sensitivity Troponin values cannot be compared with other Troponin methodologies. Patients with high levels of Biotin oral intake (i.e >5mg/day) may have falsely decreased Troponin levels. Samples collected within 8 hours of biotin intake may require additional information for diagnosis.Performed By: #### TROPI #### [facility] [address] [place], [place] [id number] Flash Oven Operator: Carmencita Caban I.cardiac [Mass/Vol]NOT REPORTEDNormal [facility] on above:Performed By: #### TROPI #### [facility] [address] [place], [place] [address] Flash Oven Operator: Carmencita Caban I.cardiac [Mass/Vol]NOT REPORTEDGib[place], KYMorris Guptacardiac [Mass/Vol]NOT REPORTED<0.03 ng/mLUK Healthcarehollie, High Sensitivity<60 - 14 ng/LMSioux Center Health on above: High Sensitivity Troponin values cannot be compared with other Troponin methodologies. Patients with high levels of Biotin oral intake (i.e >5mg/day) may have falsely decreased Troponin levels. Samples collected within 8 hours of biotin intake may require additional information for diagnosis. XR CHEST PORTABLEon [id number] CHEST PORTABLEEXAMINATION: ONE XRAY VIEW OF THE CHEST 03/10/2020 2:01 pm COMPARISON: None. HISTORY: ORDERING SYSTEM PROVIDED HISTORY: pain TECHNOLOGIST PROVIDED HISTORY: pain Acuity: Acute Type of Exam: Unknown FINDINGS: Mild cardiomegaly Focal left retrocardiac density. Possible patchy right upper lobe infiltrate. Mild streaky left perihilar density No significant pleural process IMPRESSION: Mild streaky left basilar atelectasis versus infiltrate, possible pneumonia, follow changes to resolution Possible evolving right upper lobe infiltrate Mild streaky left perihilar atelectasis Interpreted by: Sury Rice MD Signed by: Sury Rice MD 03/10/20 Final resultPremier Health [facility], [facility] Incoming Radiant Results From [employer] - 03/10/2020 2:09 PM EDT EXAMINATION: ONE XRAY VIEW OF THE CHEST 03/10/2020 2:01 pm COMPARISON: None. HISTORY: ORDERING SYSTEM PROVIDED HISTORY: pain TECHNOLOGIST PROVIDED HISTORY: pain Acuity: Acute Type of Exam: Unknown FINDINGS: Mild cardiomegaly Focal left retrocardiac density. Possible patchy right upper lobe infiltrate. Mild streaky left perihilar density No significant pleural process IMPRESSION: Mild streaky left basilar atelectasis versus infiltrate, possible pneumonia, follow changes to resolution Possible evolving right upper lobe infiltrate Mild streaky left perihilar atelectasis [facility], KYEXAMINATION: ONE XRAY VIEW OF THE CHEST 03/10/2020 2:01 pm COMPARISON: None. HISTORY: ORDERING SYSTEM PROVIDED HISTORY: pain TECHNOLOGIST PROVIDED HISTORY: pain Acuity: Acute Type of Exam: Unknown FINDINGS: Mild cardiomegaly Focal left retrocardiac density. Possible patchy right upper lobe infiltrate. Mild streaky left perihilar density No significant pleural process [facility], KYMild streaky left basilar atelectasis versus infiltrate, possible pneumonia, follow changes to resolution Possible evolving right upper lobe infiltrate Mild streaky left perihilar atelectasisUniversity Hospitals Health SystemErydel [place], [place] Covid-19 Ambulatoryon 86-20-6865DJJB-CoV-2, NAANot DetectedNot DetectedProMedica Bay Park Hospital, KYComment on above:(NOTE) This nucleic acid amplification test was developed and its performance characteristics determined by [employer]. Nucleic acid amplification tests include PCR and TMA. This test has not been FDA cleared or approved. This test has been authorized by FDA under an Emergency Use Authorization (EUA). This test is only authorized for the duration of time the declaration that circumstances exist justifying the authorization of the emergency use of in vitro diagnostic tests for detection of SARS-CoV-2 virus and/or diagnosis of COVID-19 infection under section 564(b)(1) of the Act, 21 U.S.C. 360bbb-3(b) (1), unless the authorization is terminated or revoked sooner. When diagnostic testing is negative, the possibility of a false negative result should be considered in the context of a patient's recent exposures and the presence of clinical signs and symptoms consistent with COVID-19. An individual without symptoms of COVID- 19 and who is not shedding SARS-CoV-2 virus would expect to have a negative (not detected) result in this assay. Performed At: [facility] [place], [place] [id number] Angel Owen MD Ph:[phone] [id number]-[id number]-CoV-2Not DetectedNormalNot DetectedMercy Mid-Valley Hospital on above:Result Comment: (NOTE) This nucleic acid amplification test was developed and its performance characteristics determined by [employer]. Nucleic acid amplification tests include PCR and TMA. This test has not been FDA cleared or approved. This test has been authorized by FDA under an Emergency Use Authorization (EUA). This test is only authorized for the duration of time the declaration that circumstances exist justifying the authorization of the emergency use of in vitro diagnostic tests for detection of SARS-CoV-2 virus and/or diagnosis of COVID-19 infection under section 564(b)(1) of the Act, 21 U.S.C. 360bbb-3(b) (1), unless the authorization is terminated or revoked sooner. When diagnostic testing is negative, the possibility of a false negative result should be considered in the context of a patient's recent exposures and the presence of clinical signs and symptoms consistent with COVID-19. An individual without symptoms of COVID- 19 and who is not shedding SARS-CoV-2 virus would expect to have a negative (not detected) result in this assay. Performed At: [facility] [employer] [facility] [place] [id number] Angel Owen MD Ph:[phone] By: #### ACOV #### [facility] [address] [place], [place] [id number] Flash Oven Operator: Dario Zamudio MD Vital Signs Date TimeVital SignValuePerforming GekatkkwcKvfvxorg40-59-1826 09:09-0400Body hixvey493.8 cmDavid Pocos DO Work Phone: [phone] [place], [place] 1623310-17-2025 09:09-0400Body mass index (BMI) [Ratio]43.33 kg/e7Wpabg Pocos DO Work Phone: [phone] [place], [place] 1623310-17-2025 09:09-0400Body zzgepl863.99 kgDavid Pocos DO Work Phone: [phone] [place], [place] 1623303-03-2025 09:17-0500Body nwlutd992.8 cmDavid Pocos DO Work Phone: [phone] [place], [place] 1623303-03-2025 09:17-0500Body mass index (BMI) [Ratio]43.91 kg/n8Kbtjh Pocos DO Work Phone: [phone] [place], [place] 1623303-03-2025 09:17-0500Body .8 kgDavid Pocos DO Work Phone: [phone] [place], [place] 1623301-27-2025 09:24-0500Body fszids682.8 cmDavid Pocos DO Work Phone: [phone] [place], [place] 1623301-27-2025 09:24-0500Body mass index (BMI) [Ratio]43.91 kg/g8Kpapq Pocos DO Work Phone: [phone] [place], [place] 1623301-27-2025 09:24-0500Body oenigx946.8 kgDavid Pocos DO Work Phone: [phone] [place], [place] 1623312-05-2024 09:22-0500Blood Pressure Esme BLANCHARD [phone]-AhjnzKettering Health [facility] 05-07-2024 09:22-0500Body xzrxmgbcuio77.7 [degF]DAWIT BLANCHARD 086-2103Xadjwv-XbbkyKettering Health [facility] 05-07-2024 09:22-0500Diastolic blood mqluisnx65 mm[Hg]DAWITMando BLANCHARD 727-8998Eouwjw-QygciKettering Health [facility] 05-07-2024 09:22-0500Heart rate76 /minSHELLY SANTO 254-8772Hueopv-XgqapKettering Health [facility] 05-07-2024 09:22-0500Respiratory rate20 /minSHELLY SANTO 577-4181Tauoqx-CnlrtKettering Health [facility] 05-07-2024 09:22-7470ZfX5% (BldA) [Mass fraction]99 %DAWITMando BLANCHARD 627-6665Qsoqzm-VnvstKettering Health Miamisburg 05-07-2024 09:22-0500Systolic blood mkatxugd166 mm[Hg]DAWITMando BLANCHARD 596-1848Clwdqs-PnfotKettering Health [facility] 02-24-2024 10:25-0400Diastolic blood zseqtymm08 mm[Hg]Abdifatah Sanchez [facility]09-23-2024 10:25-0400Heart rate67 /minMohamad Laura [facility]09-23-2024 10:25-0400 Respiratory rate20 /minMohamad Conuchjimbo [facility]09-23-2024 10:25-3544IwK3% (BldA) [Mass fraction]95 %Abdifatah Sanchez [facility]09-23-2024 10:25-0400 Systolic blood rukeuqfc301 mm[Hg]Abdifatah Sanchez [facility]09-23-2024 10:15-0400 Diastolic blood wodhtnis04 mm[Hg]Abdifatah Andujaruchli [facility]09-23-2024 10:15-0400Heart rate73 /minMohamad Mouchli [address] [place], [place] 6252209-23-2024 10:15-0400 Respiratory rate18 /minMohamad Mouchli [address] [place], [place] 6252209-23-2024 10:15-2706MvQ9% (BldA) [Mass fraction]95 %Mohamad Mouchli [address]09-23-2024 10:15-0400 Systolic blood quaiyayu795 mm[Hg]Mohamad Mouchli [address] [place], [place] 8603109-23-2024 10:10-0400 Diastolic blood ubhdchnw14 mm[Hg]Mohamad Mouchli [address] [place], [place] 8603109-23-2024 10:10-0400Heart rate80 /minMohamad Mouchli [address] [place], [place] 6252209-23-2024 10:10-0400 Respiratory rate12 /minMohamad Mouchli [address] [place], [place] 8603109-23-2024 10:10-1782EaL5% (BldA) [Mass fraction]95 %Mohamad Mouchli [address] [place], [place] 6252209-23-2024 10:10-0400 Systolic blood qfelhrow501 mm[Hg]Mohamad Mouchli [address] [place], [place] 8603109-23-2024 09:59-0400Body bppchfljeqj08.06 [degF]Mohamad Mouchli [address] [place], [place] 8603109-23-2024 09:55-0400 Respiratory rate13 /minMohamad Mouchli [facility]09-23-2024 09:50-0400 Respiratory rate15 /minMohamad Mouchli [facility]09-23-2024 09:45-0400 Respiratory rate15 /minMohamad Mouchli [facility]09-23-2024 08:59-0400Blood Pressure LocationMohamad Mouchli [address] [place], [place] 6252209-23-2024 08:59-0400Body dyadmpykmls46.06 [degF]Mohamad Mouchli [address] [place], [place] 6252209-05-2024 09:42-0400Blood Pressure LocationMohamad Mouchli 350-4241Djlwpa-Rcevf[address] [place], [place] 4833409-05-2024 09:42-0400Diastolic blood ophtovti76 mm[Hg]Mohamad Mouchli 422-7864Spirqi-Yqfwk[address] [place], [place] 4833409-05-2024 09:42-0400Heart rate69 /minMohamad Mouchli [phone]-ZncazSelect Medical [facility]09-05-2024 09:42-0400Respiratory rate16 /minMohamad Mouchli 495-6438Jxdgyr-Wnnqf[address] [place], [place] 4833409-05-2024 09:42-0400Systolic blood enxowgdf894 mm[Hg]Mohamad Mouchli 187-3531Oxadvl-Dstat[address] [place], [place] 4833401-23-2023 14:52-0500Blood Pressure LocationSblake Sanchez 263-4411Yfcofe-HceqhOhiohealth Mansfield Hospital 06-25-2022 14:52-0500Body kezmsnhjgqc62.06 [degF]Lara Sanchez 046-1063Nzktfi-FjjhxOhiohealth Mansfield Hospital 06-25-2022 14:52-0500Diastolic blood rimivyec09 mm[Hg]Lara Sanchez 349-7473Cssckp-VzgeiOhiohealth Mansfield Hospital 06-25-2022 14:52-0500Heart rate90 /minSblake Sanchez 055-7667Azepwn-VlamrOhiohealth Mansfield Hospital 06-25-2022 14:52-4050JnE9% (BldA) [Mass fraction]97 %Lara Sanchez [phone]-GugmkOhiohealth Mansfield Hospital 06-25-2022 14:52-0500Systolic blood hwwhojtf650 mm[Hg]Lara Sanchez [phone]-GydcjOhiohealth Mansfield Hospital 04-16-2022 18:40-0500Body wbgoeb285.26 cmPdavid Osullivanmond Other [facility] Other 11-14-2022 18:40-0500Body mass index (BMI) [Ratio] 39.87 kg/t2EsvepwVikki Osullivanmond Other [employer] Other 11-14-2022 18:40-0500Body ywtajvxuqjw94.8 [degF]Vikki Osullivanmond Other [employer] Other 11-14-2022 18:40-0500Body tblidc924.47 kgCasimirocyndy Osullivanmond Other [employer] Other 11-14-2022 18:40-0500Diastolic blood mddomqdt19 mm[Hg] Vikki Osullivanmond Other [employer] Other 11-14-2022 18:40-0500Respiratory rate18 /minVikki Iram Other [employer] Other 11-14-2022 18:40-7733NuY6% (BldA) [Mass fraction]99 % Vikki Walden Other [employer] Other 11-14-2022 18:40-0500Systolic blood artxkquf369 mm[Hg] Vikki Walden Other [employer] Other 11-04-2020 14:03-0500BMI (Body Mass Index)35.88 kg/m2 [facility], QM86-72-6964 14:03-0500Body epwbdh486.22 kg [facility], KU77-61-3331 14:03-0500BP Wypoaxvxs84 mm[Hg] [facility], NZ53-65-0944 14:03-0500BP Xxqghaat900 mm[Hg] [facility], GM62-84-5985 14:03-5193Iztzck557.3 [facility], LR30-49-1928 14:03-0500Pulse (Heart Rate)71 /[facility], IU23-76-7609 14:03-0500Pulse Viqupacm62 %[facility], IE72-70-8372 14:24-0400BMI (Body Mass Index)35.74 kg/m2 [facility], YL82-78-7043 14:24-0400Body ranbnt855.77 kg [facility], MG90-38-2718 14:24-0400BP Rqzxhwnha28 mm[Hg] [facility], FN41-61-0878 14:24-0400BP Vnrkkpni228 mm[Hg] [facility], VN49-93-2435 14:24-3534Jtarrc701.3 cmYork [facility], AN84-99-3758 14:24-0400Pulse (Heart Rate)68 /[facility], YS86-88-1704 14:24-0400Pulse Eshhepha84 %[facility], FZ24-36-2721 15:46-0400BMI (Body Mass Index)35.88 kg/m2 Althea [facility], XA40-91-4221 15:46-0400Body Bdbxlqftsrh58.01 [degF]Althea [facility], JR10-17-8831 15:46-0400Body kmlinb797.22 kgSusyselect specialty hospital - winston-salemlonnie [facility], WX93-38-1573 15:46-0400BP Dretmacmb19 mm[Hg] [place] [facility], GH53-11-7484 15:46-0400BP Vsmuuqle893 mm[Hg] [place]thea [facility], GK16-92-5045 15:46-0003Rycktc275.3 [facility], JZ30-85-8919 15:46-0400Pulse Sncsfvjj01 %Althealonnie Ling [facility], QP34-40-9988 11:29-0400Body Tjqhbkdtlqz12.7 [degF][facility], KA27-56-9578 11:29-0400BP Seekoupin22 mm[Hg][facility], HK74-95-9472 11:29-0400BP Xjyfcjvd189 mm[Hg][facility], QD43-35-4890 11:29-0400Pulse (Heart Rate)92 /[facility] systemSusyselect specialty hospital [facility]-salemlonnie [facility], DT69-52-4473 11:29-0400Pulse Iijytfyf40 %[facility], FO66-78-6310 11:29-0400Respiratory Rate16 /[facility] health systemSusySt. Mary[facility], IT07-94-7282 05:49-0400BMI (Body Mass Index)35.99 kg/m2 [facility], RY60-94-5139 05:49-0400Body ukxjmg836.54 kg [facility], NC25-09-2495 05:49-0067Hztsar423.3 [facility], SV43-84-5825 13:56-0400BMI (Body Mass Index)36.92 kg/m2 Althea [facility], JD62-72-7123 13:56-0400Body uunxdr982.4 kg Althea LingProMedica Bay Park [facility], DX71-99-5147 13:56-0400BP Rlmjulhcq14 mm[Hg] [place]thea [facility], PX11-39-4145 13:56-0400BP Ungcxetc097 mm[Hg] Althea [facility], OR95-26-0591 13:56-4472Shbsuv145.3 Hiselect specialty hospital - win[facility]-salemlonnie [facility], MV31-62-4921 13:56-0400Pulse (Heart Rate)60 /Gerald [facility], HL96-83-3350 13:56-0400Pulse Ieuwuydk46 %[place] [facility], AC14-47-8024 14:26-0400BMI (Body Mass Index)37.51 kg/m2 Althea [facility], QA54-18-4424 14:26-0400Body .21 kg Althea [facility], AJ32-31-3078 14:26-0400BP Gyqaeoezg94 mm[Hg] [place]a [facility], FS52-74-6209 14:26-0400BP Wttkjrgi367 mm[Hg] Althea [facility], WX40-57-9720 14:26-9689Lgtnqv337.3 Hiselect specialty hospital [facility]emlonnie [facility], IA80-00-5163 14:26-0400Pulse (Heart Rate)76 /Gerald [facility], RV39-93-4102 14:26-0400Pulse Fjcingwq17 %[facility], [place] Encounters Encounter DateEncounter TypeCare ProviderFacilityStart: 04-09-2025 End: 17-71-8332Pwtgrr flowsheetAbbie Gezo PTANOMS Beau Physical TherapyStart: 04-09-2025 End: 50-43-3485Dwbtuk flowsheetAbbie Gezo PTANOMS [facility] Physical TherapyStart: 04-09-2025 End: 34-48-7153nlvjkyzyabCucvl Tigist [facility] Physical TherapyComment on above:Impingement syndrome of right shoulder (Primary Dx); Neck pain; Radiculopathy, cervicalStart: 04-06-2025 End: 45-53-8302Ruplbp flowsheetSammantcarla Manley [facility] Physical Therapy Start: 04-06-2025 End: 81-54-3140Idkizv flowsheetSammantha Manley [facility] Physical Therapy Start: 04-06-2025 End: 88-18-4403xkopgtpkmuTemxuyjnl Manley [facility] Physical Therapy Comment on above:Impingement syndrome of right shoulder (Primary Dx); Neck pain; Radiculopathy, cervicalStart: 03-31-2025 End: 98-62-3279hqqqpxelylRKZZRE A LEHMANNFacility:FT FM BellevueStart: 03-19-2025 End: 24-65-6774Zymkqnd encounter procedureDavid A Pocos DO Work Phone: [facility] OrthopaedicsComment on above:Impingement syndrome of right shoulder (Primary Dx); Neck pain; Cervical radiculopathy; DDD (degenerative disc disease), cervical; Morbid obesity ([facility])Start: 03-19-2025 End: 45-37-3305ezipduafrrIDQTS A POCOSNot AvailableStart: 03-19-2025 End: 63-04-7373sueeovqasaUEUIP A POCOSNot AvailableStart: 01-18-2025 End: 93-54-2445fnafkoparoHFSUJQ A LEHMANNFacility:FT FM BellevueStart: 01-07-2025 End: 54-80-3432faafaotgjdKAYEBT A LEHMANNFacility:FT FM BellevueStart: 11-18-2024 End: 18-98-6359Qio Drop offJodi L Judy [facility] Start: 11-18-2024 End: 33-50-8401ccaxcsrvyqWlit L SchwabFacility:FTMCStart: 10-06-2024 End: 21-19-6806lewqzekcjeAtrnnr Marti SanchezFacility:FT FM BellevueStart: 09-29-2024 End: 08-99-1923Foaesw flowsheetMelissa Kelbley PTANOMS CI PTStart: 09-29-2024 End: 04-83-7721Myziuk flowsheetMelissa Kelbley PTANOMS CI PTStart: 09-29-2024 End: 92-72-0193livkbdocypAudsfdk Kelbley PTANOMS CI PTComment on above: Impingement syndrome of left shoulder (Primary Dx); Arthritis of left shoulder regionStart: 09-15-2024 End: 14-03-5165Ptlnsr flowsheetMelissa Kelbley PTANOMS CI PTStart: 09-15-2024 End: 26-69-4933Cxkphh flowsheetMelissa Kelbley PTANOMS CI PTStart: 09-15-2024 End: 16-81-6014tfxjpyvkclXxzjbgc Kelbley PTANOMS CI PTComment on above: Impingement syndrome of left shoulder (Primary Dx); Arthritis of left shoulder regionStart: 09-09-2024 End: 88-41-8335Llzhqs flowsMisty Flores PT Work Phone: NOMS CI PTStart: 09-09-2024 End: 42-16-9670Kvvhzh flowsMisty Flores PT Work Phone: noMS CI PTStart: 09-09-2024 End: 56-97-1237ckprxsgeecPukomm T Blackston PT Work Phone: noMS CI PTComment on above:Impingement syndrome of left shoulder (Primary Dx); Arthritis of left shoulder regionStart: 08-19-2024 End: 89-94-4360Dyhzatlwb encounterBev Flores PT Work Phone: noMS CI PTComment on above:PT CX due to work; Reassess for PT (09/09/24 w/ Bev Flores PT.)Start: 08-13-2024 End: 65-90-2633Dvjugd flowsheetMarshall Brink PTANOMS CI PTStart: 08-13-2024 End: 02-89-1847Irpyfx flowsheetMarshall Brink PTANOMS CI PTStart: 08-13-2024 End: 68-51-4929scmxyheqvvYwcpovtj Brink PTANOMS CI PTComment on above: Impingement syndrome of left shoulder (Primary Dx); Arthritis of left shoulder regionStart: 08-11-2024 End: 30-31-2762cxhrdmwhmtYEVQWLFT BRINKNot AvailableStart: 08-07-2024 End: 09-96-1221wqcaglmcacOKIQTOZH BRINKNot AvailableStart: 08-05-2024 End: 82-76-3780Nasmpd flowsheetMelissa Kelbley PTANOMS CI PTStart: 08-05-2024 End: 51-53-2979Cldhpq flowsheetMelissa Kelbley PTANOMS CI PTStart: 08-05-2024 End: 27-55-7961resdbyfghzJmyzwtr Kelbley PTANOMS CI PTComment on above: Impingement syndrome of left shoulder (Primary Dx); Arthritis of left shoulder regionStart: 08-03-2024 End: 60-62-0655Fmbaif flowsheetDavid A Pocos DO Work Phone: NOMS ORTHOStart: 08-03-2024 End: 21-24-7504Fpkrfi flowsheetDavid A Pocos DO Work Phone: NOMS ORTHOStart: 08-03-2024 End: 14-18-4898gfgtlsxhxaBunbkupr Brink PTANOMS CI PTComment on above: Impingement syndrome of left shoulder (Primary Dx); Arthritis of left shoulder regionStart: 08-03-2024 End: 44-62-3567Nicofxx encounter procedureDavid A Pocos DO Work Phone: NOMS NB ORTHOComment on above:Impingement syndrome of left shoulder (Primary Dx); Arthritis of left shoulder region; Impingement syndrome of right shoulderStart: 08-03-2024 End: 01-30-7729hihfnmeyvzYYLXH A POCOSNot AvailableStart: 07-31-2024 End: 72-02-8339Icntnb flowsheetKentrellall Brink PTANOMS CI PTStart: 07-31-2024 End: 14-32-8690Hruvlp flowsheetMarshall Brink PTANOMS CI PTStart: 07-31-2024 End: 30-15-2035nwckcdtxeiQxredadu Brink PTANOMS CI PTComment on above: Impingement syndrome of left shoulder (Primary Dx); Arthritis of left shoulder regionStart: 07-29-2024 End: 46-30-2802Ixdkya flowsheetMatthewremy Chemo Flores PT Work Phone: NOMS CI PTStart: 07-29-2024 End: 83-32-8614Cgwkxj flowsheetMatthewremy Chmeo Flores PT Work Phone: NOMS CI PTStart: 07-29-2024 End: 90-56-6878hzvmgtklidHcydan Chemo Flores PT Work Phone: noMS CI PTComment on above:Impingement syndrome of left shoulder (Primary Dx); Arthritis of left shoulder regionStart: 07-27-2024 End: 45-14-0422Addfhe flowsheetMatthewremy Chemo Flores PT Work Phone: NOMS CI PTStart: 07-27-2024 End: 06-13-5661Gpbrfv flowsheetMatthewremy Chemo Flores PT Work Phone: NOMS CI PTStart: 07-27-2024 End: 46-23-6261igwtmileseZxehdg Chemo Flores PT Work Phone: NOMS CI PTComment on above:Impingement syndrome of left shoulder (Primary Dx); Arthritis of left shoulder regionStart: 07-09-2024 End: 19-29-8403epxrmtcgnhEuckpl E. RossFacility:FT FM BellevueStart: 07-02-2024 End: 73-39-6171Hccbqexzw encounterJemara Flores PT Work Phone: NOMS CI PTComment on above:PT Initial Eval; fu; fu x2; fu x3; Call BackStart: 06-29-2024 End: 11-45-6216Lgmjcx flowsheetDavid A Pocos DO Work Phone: NOMS ORTHOStart: 06-29-2024 End: 34-43-9890Bzhukp flowsheetDavid A Pocos DO Work Phone: NOMS ORTHOStart: 06-29-2024 End: 81-36-7686Rcxtrmz encounter procedureDavid A Pocos DO Work Phone: NOMS NB ORTHOComment on above:Impingement syndrome of left shoulder; Arthritis of left shoulder region; Morbid obesity (CMS/HCC)Start: 06-29-2024 End: 66-12-1538thteowrwfrUIZMZ A POCOSNot AvailableStart: 06-08-2024 End: 95-46-4493kxhobhbqeeSikdoe E. RossFacility:FT BellueStart: 05-14-2024 End: 43-87-3293Yca Drop offSHELLY A SANTO [facility] Start: 05-14-2024 End: 38-16-4469ylreoybzzkFCWZDR A LEHMANNFacility:FTMCStart: 05-07-2024 End: 74-53-8189Jcu Drop offSHELLY A SANTO [facility] Start: 05-07-2024 End: 26-28-8444tftcigqyytWBS DAWIT A LEHMANNFacility:FTMCStart: 05-07-2024 End: 28-87-4030Mdustiu encounter procedureSHELLY A SANTO 437-1469Ufcxkf-EmutaGeorgetown Behavioral Hospital Family [facility] Start: 02-24-2024 End: 17-57-0441czdsyegkwfWfzblip A. MouchliFacility:FTMCStart: 02-24-2024 End: 49-32-6441Gzhxyig encounter procedureAbdifatah Sanchez [facility] Start: 02-20-2024 End: 00-04-7695scbkczwmavRkuwdi E. DanielFacility:[facility] BellevueStart: 02-06-2024 End: 26-76-2605Vlpavyc encounter procedureAbdifatah Sanchez 669-7905Dkgqzp-CrstkGeorgetown Behavioral Hospital [facility] Start: 09-24-2022 End: 95-14-5253Bhs Drop Tammie Sanchez [facility] Start: 06-25-2022 End: 86-61-6441Byizeif encounter Rufus Sanchez 936-7857Xxdvpa-LvnuoGeorgetown Behavioral Hospital Family [facility] Start: 05-09-2022 End: 19-08-1297Ligiuri encounter procedurePremaura Fontainemontefiore nyack hospitaldeandre [facility] Start: 05-09-2022 End: 32-91-0716QdfqzholqIcrav Gudimontefiore nyack hospitaldeandre [facility] Start: 04-16-2022 End: 16-89-2377Hheefrr encounter procedureNP-C Vikki Walden Work Phone: [facility] Start: 04-16-2022 End: 94-58-9398fjxjlnlfasQcokjl [facility]Ber[facility] Work Phone: Start: 85-85-0266Cvgmjg outpatient new 20 minutes Vikki WaldenFPG Urgent Care ClydeStart: 04-11-2022 End: 21-69-0898Ovh-SiteSblake Sanchez 117-7251Zzrgbn-BlopuOhiohealth Mansfield Hospital Start: 04-11-2022 End: 20-46-3682Ifcchoe encounter Rufus Sanchez 024-1681Wcxzfu-LzzjeOhiohealth Mansfield Hospital Start: 14-41-7670Twuxvvubw for general adult medical examination without abnormal findingsSAMUEL Flower Hospitaltart: 10-13-2020 End: 28-05-9744mmufkwikfzSXHDFN ROSSFacility:I9Cvlgb: 10-13-2020 End: 31-60-2405Pnhwurkqx for general adult medical examination without abnormal findingsSAMUEL ROSSFacility:W4Vuewy: 08-03-2020 End: 75-47-1273jbqbiuuopeWUAWNA ROSSFacility:E9Hntml: 07-27-2020 End: 46-49-8243nduimbvngtXTPVOO ROSSFacility:J5Mufea: 04-06-2020 End: 78-83-7688Atfjwvq encounter procedureALTHEA [facility] Hospitaltart: 04-06-2020 End: 86-56-6212Olmvnuhndp hospital visit by Demond Ling Work Phone: [facility]Start: 03-23-2020 End: 95-70-1245Tcwfjfx encounter procedureALTHEA [facility] Hospitaltart: 03-23-2020 End: 17-29-7163Lbpxwupacg hospital visit by Demond Ling Work Phone: [facility] ClinicStart: 03-16-2020 End: 66-20-2471Odlgfut encounter procedureALTHEA [facility] Hospitaltart: 03-16-2020 End: 14-09-9674Evqqofyxab hospital visit by Demond Ling Work Phone: stMD Hernia ClinicComment on above:Postoperative follow-upStart: 03-10-2020 End: 22-87-7625Sfyjgvy encounter procedureJONATHAN D WRIGHTPremier Health Miami Valley Hospitaltart: 03-10-2020 End: 70-84-6670Yjabzaqzpu hospital visit by Demond Ling Work Phone: staz Med SurgComment on above:Recurrent incisional hernia (Primary Dx)Start: 03-05-2020 End: 87-75-0965Ikhpitk encounter procedureSHAUN SHANKARTrumbull Regional Medical Center Start: 03-05-2020 End: 59-03-3188Tqqkfcokvk hospital visit by Deon Swanson 4STAZ PRE-ADMIT TESTINGStart: 02-22-2020 End: 44-31-3209Ljgmkwh encounter procedureSUSYTITI LINGPremier Health Miami Valley Hospitaltart: 02-22-2020 End: 14-70-8612Rbmsijsblf hospital visit by Demond Ling Work Phone: [facility]ia ClinicComment on above:ArrivedStart: 02-01-2020 End: 31-45-4850Rvznpkt encounter procedureSUSYTITI LINGPremier Health Miami Valley Hospitaltart: 02-01-2020 End: 93-06-7083Xksthnirfe hospital visit by Demond Ling Work Phone: [facility] Hernia ClinicComment on above:Recurrent incisional hernia; Obesity (BMI 35.0-39.9 without comorbidity); Tobacco use; Other specified hypothyroidism; Essential hypertension Procedures DateProcedureProcedure DetailPerforming ClinicianStart: 24-92-1601Exubr spine cervical 2 or 3 viewsDavid A Pocos DO Work Phone: Start: 37-85-2984Dlgth shoulder complete minimum 2 viewsDavid A Pocos DO Work Phone: Start: 12-97-7316Kkgumjifdmmsid aspir&/inj major jt/bursa w/o usDavid A Pocos DO Work Phone: Start: 40-84-8912EcmbkzscejlHohki Pocos DO Work Phone: Start: 64-24-4425DrqyhlofdvwJorcoad Moeligioli Comment on above:polyp x1, IHStart: 02-24-2024 EsophagogastroduodenoscopyMohamad Laura Comment on above:gastritisStart: 21-52-0780Wkwbn chest X-rayNP-C Vikki Walden Work Phone: Start: 01-46-7122OMNUZSOYC SPIROMETRY RTJONATHAN WRIGHTStart: 08-96-7183WKLNXRZJE SPIROMETRY RTJONATHAN WRIGHTStart: 03-11-2020 INCENTIVE SPIROMETRY RTJONATHAN WRIGHTStart: 93-34-9752APEBJMKAA PATIENTJONATHAN WRIGHTStart: 79-77-1052RDOL GENERALJONATHAN WRIGHTStart: 77-09-4297XSOPFZ LOCK IVJONATHAN WRIGHTStart: 64-82-1074IUEMYPRVN SPIROMETRY RTJONATHAN WRIGHTStart: 34-73-3532NJVKYBUC OXYGEN THERAPY PROTOCOLJONATHAN WRIGHTStart: 12-52-6168Dmwmk of magnesiumJONATHAN WRIGHTStart: 77-85-9495Qcvrw metabolic panel calcium total ALTHEA WRIGHTStart: 99-20-6004Lbjze count complete auto&auto difrntl wbc ALTHEA WRIGHTStart: 40-92-4885XKYXBJTXS SPIROMETRY RTJONATHAN WRIGHTStart: 70-76-9235Yaafm of magnesiumJonathan D Ling Work Phone: Start: 05-93-2456Lyfuu metabolic panel calcium total Althea D Ling Work Phone: Start: 85-35-7298Rcune count complete auto&auto difrntl wbcJonathan D Ling Work Phone: Start: 55-80-0373NSNSWJ AND OUTPUTJONATHAN LING Start: 39-96-0455HDNGYPREK SPIROMETRY RTJONATHAN WRIGHTStart: 03-10-2020 INCENTIVE SPIROMETRY RTJONATHAN WRIGHTStart: 07-95-5606GFACJOSOL SPIROMETRY RT ALTHEA WRIGHTStart: 41-89-8925KISUJPFMT SPIROMETRY RTJONATHAN WRIGHTStart: 24-95-2022QVTBSEQFW SPIROMETRY RTJONATHAN WRIGHTStart: 76-92-3719Yjkwdgagul exam chest single viewJONATHAN WRIGHTStart: 41-54-6106Pgldb of troponin quantitative ALTHEA LINGStart: 25-39-3602Irq routine ecg w/least 12 lds w/i&rJPILAR WRIGHTStart: 14-15-4480QEVNF INTERMITTENT PNEUMATIC COMPRESSION DEVICEWINTERLONNIE LINGStart: 77-67-6326GWOXIUHDO SPIROMETRY RTWINTERLONNIE LINGStart: 03-10-2020 INITIATE OXYGEN THERAPY PROTOCOLJOTITI WRIGHTStart: 22-20-8486LPQRMD AND OUTPUTWINTERLONNIE WRIGHTStart: 94-37-4672UMDPNLE COMMUNICATIONJOMILTONLONNIE WRIGHTStart: 24-44-5895FNIUW CARESUSYMILTONLONNIE WRIGHTStart: 17-45-5789YDUZZJFX PATIENTWINTERLONNIE WRIGHTStart: 22-28-7248QDSRLTB WITH BATHROOM PRIVILEGESALTHEA LINGStart: 37-34-5973JGEB CODEWINTERLONNIE WRIGHTStart: 22-22-6764HGWOTF PHYSICIAN (SPECIFY) ALTHEA LINGStart: 60-03-4616ZHFSM SIGNSALTHEA LINGStart: 03-10-2020 Radiologic exam chest single viewAlthea Chadd Sushil Work Phone: Start: 80-33-3151Tynep of troponin quantitative Althea Ling Work Phone: Start: 86-62-2098AXCRGYDR REMOVALWINTERLONNIE SUSHILStart: 57-09-9112ACIFMXEIKZTJM NURSING CARE ORDER (SPECIFY)ALTHEA SUSHILStart: 43-67-1465MIAOGYN STATUS (FROM ED OR OR/PROCEDURAL)ALTHEA LINGStart: 47-82-5032CTZOXMJJ PATIENTJOMILTONLONNIE WRIGHTStart: 02-93-6118Bhrkz count complete automatedALTHEA WRIGHTStart: 54-48-0450Lhoflcetmyz panelSUSYMILTONLONNIE WRIGHTStart: 39-78-2406Zxufu test visual color cmprsn methsALTHEA LINGStart: 03-10-2020 End: 53-25-8366Aap recrt incal/vnt hernia reducibleWinterlonnie Florentino Sushil Work Phone: Start: 96-93-9450Uyhdy count complete automatedChuck Horowitz Work Phone: Start: 23-81-4338Ugraeopaadp panelDommisbah Horowitz Work Phone: Start: 60-36-5827Dnjnl test visual color cmprsn methsJotiti Ling Work Phone: Start: 63-88-3816UTTSA-19 AMBULATORYJONATLONNIE LING Start: 40-38-0748FNUFA-19 AMBULATORYLuis Monique Villegas Work Phone: Start: 16-82-2174XJDUNJONATLONNIE WRIGHTStart: 36-13-2259Hkdfvey of repair of umbilical herniaLara Sanchez comment on above:Pt has had 3 surgeries. The first was for an umbilical hernia and the other two were for repairs.Start: 06-03-2017 CholecystectomySakonrad Sanchez Start: 07-60-2054Gdviqkrl sectionSamuel Daniel Plan of Treatment DateCare ActivityDetailAuthorStart: 00-67-9738Qjjynwhzh for malignant neoplasm of colonNOMS HealthcareStart: 51-26-1510trqabfvgjwKzhxepuocbCujjfxba:FT FM BellevueStart: 04-23-2025 End: 25-84-1116zfgzqxspis62/21/2025 11:30 AM EST Treatment [facility] [address] [facility] [address] [place] [address] Moreno Ansari PTANOMS [facility] Physical TherapyStart: 04-16-2025 End: 04-09-5878zwvrsbyymp27/14/2025 11:30 AM EST Treatment [facility] [place] [facility] [address] [facility] [address] [place] [address] Moreno Ansari PTANOMS [facility] Physical TherapyStart: 04-16-2025 End: 56-18-5572Dnxlpsw encounter pajefzrxc59/14/2025 9:30 AM EST Office Visit [facility] [address] [place] [phone] Alexey Krishnan DO [address] [place] [address] [facility]icsStart: 04-09-2025 End: 61-09-3190pyonmofsfa27/07/2025 10:30 AM EST Treatment [facility] [place] [facility] [address] [place] [address] Huma Escoto PTANOMS [place] Physical TherapyStart: 04-06-2025 End: 97-13-1515mftbhoccgx45/04/2025 10:00 AM EST Evaluation [facility] [place] [facility] [address] [place] [address] Yvette Manley, ANAT Mendoza [place] Physical TherapyComment on above: ArrivedStart: 04-02-2025 End: 72-20-6974pldetlzvpj89/31/2025 12:30 PM EDT Evaluation [facility] [place] [facility] [address] [facility] [address] [place] [address] Yvette Manley PTNOMS [place] Physical TherapyStart: 41-61-2549UDYWT-19 Vaccine ( season)COVID-19 Vaccine ( season)[facility] Start: 02-00-4529Ofilajswh vaccinationMCKAY-DEE [facility] HealthcareStart: 09-29-2024 End: 08-53-9301dqlhhrkhyb97/29/2025 8:30 AM EDT Treatment [facility] [address] [facility] [address] [place] [address] Bev Flores, PT [address] [facility] [address] [place] [address] NOMS CI PTStart: 09-22-2024 End: 62-91-9680wufzmvhhxu84/22/2025 8:30 AM EDT Treatment [facility] [address] [facility] [address] [place] [address] Caitlyn Chen, ASSISTANT MANAGER TRAINEE NOM[facility] CI PTStart: 09-15-2024 End: 66-29-3720jggrtmhnxnGOYS CI PTComment on above:ArrivedStart: 09-09-2024 End: 86-54-6570phaqcsmujqUYTJ CI PTComment on above:ArrivedStart: 08-20-2024 End: 82-62-6915rvtbsvemef83/20/2025 9:30 AM EDT Treatment [facility] [address] [place] [address] Bev Flores, PT [address] [place] [address] [place] [address] NOMS CI PTStart: 08-18-2024 End: 92-81-2407obdbmymlvi43/18/2025 9:30 AM EDT Treatment [facility] [address] [place] [address] Bev Flores, PT [address] [place] [address] [place] [address] NOMS CI PTStart: 08-13-2024 End: 19-01-8030hluiaslnxx58/13/2025 9:30 AM EDT Treatment [facility] [address] [place] [address] Moreno Ansari, ASSISTANT MANAGER TRAINEE NOM[facility] CI PTStart: 08-11-2024 End: 69-51-2794ticzuikkte60/11/2025 8:00 AM EDT Treatment [facility] [address] [place] [address] Moreno Ansari, ASSISTANT MANAGER TRAINEE NOM[facility] CI PTStart: 08-07-2024 End: 27-27-9119krtrrkjcsg35/07/2025 11:00 AM EST Treatment [facility] [address] [place] [address] Moreno Ansari, ASSISTANT MANAGER TRAINEE [facility] CI PTStart: 08-05-2024 End: 36-94-7264rllhdpxkqfJOQX CI PTComment on above:ArrivedStart: 08-03-2024 End: 03-14-0439eutgoniaoc60/03/2025 11:30 AM EST Treatment [facility] [address] [facility] [address] [place] [address] Moreno Ansari PTA NOMS CI PTStart: 08-03-2024 End: 88-97-4948Bcyjhuv encounter procedureNOMS NB ORTHOComment on above:Arrived Start: 07-31-2024 End: 72-74-2523hjoqgqtptoGEWG CI PTComment on above:ArrivedStart: 07-29-2024 End: 01-44-6892tuzbwesnca83/26/2025 9:00 AM EST Treatment [facility] [address] [facility] [address] [place] [address] Bev Flores, PT [address] [facility] [address] [place] [address] NOMS CI PTStart: 07-27-2024 End: 93-97-4527yginugimpyGKOJ CI PTComment on above:Impingement syndrome of left shoulder; Arthritis of left shoulder regionStart: 06-29-2024 End: 13-52-3077Zailxzv encounter /27/2025 9:15 AM EST Office Visit [facility] [address] [place] [address] Alexey Krishnan DO [address] [place] [address] ArrivedNOMS NB ORTHOComment on above:ArrivedStart: 02-02-2024 Influenza vaccinationInfluenza Vaccine (#1)NOMS HealthcareStart: 03-11-2021 Creatinine measurementCreatinine monitoringProMedica Bay Park Hospital, [place]Start: 03-11-2021 Potassium monitoringPotassium monitoringProMedica Bay Park Hospital, [place]Start: 04-06-2020 End: 69-81-9953Isrycyzblis69/04/2020 Appointment General Surgery Althea Ling MD [address] [place], [place] [address] [phone] [facility]: [facility]2020 End: 91-86-0398Lpvsgfznfpr88/21/2020 Appointment General Surgery Althea Ling MD [address] [place] [address] [phone] [facility]Start: 03-10-2020 End: 03-07-6303Ftemjehf EncounterSTAZ ORComment on above:RECURRENT INCISIONAL HERNIA REPAIR WITH MESH POSTERIOR COMPONENT SEPARATIONStart: 03-05-2020 End: 93-33-4540Znmafcgzcgh78/03/2020 Appointment Pre-Admission TestingSTAZ PRE- ADMIT TESTINGStart: 02-22-2020 End: 86-07-0604Lzlrzbgpzxw36/21/2020 Appointment General Surgery Althea Ling MD [facility] [place], [place] [id number] [facility] ClinicStart: 11-59-2183Kdbbuirha vaccinationFlu vaccine (#1)[facility]: 18-28-2167Zjansmwj screenDiabetes screenMarymount Hospital: 02-18-5615Fbruy panelLipid screenMarymount Hospital: 2015 Screening for malignant neoplasm of breastMammogramNOMS HealthcareStart: 78-24-0847Bamqrybso for malignant neoplasm of cervixNOMS HealthcareStart: 84-86-4370Rgyglxcjc for malignant neoplasm of cervixNOMS HealthcareStart: 68-49-5536TDiQ/Tdap/Td vaccine (1 - Tdap)DTaP/Tdap/Td vaccine (1 - Tdap)[facility]: 98-01-9841LDS screeningHIV screenMarymount Hospital: 66-72-4776Jocrpvckbpjb 0-64 years Vaccine (1 of 1 - PPSV23)Pneumococcal 0-64 years Vaccine (1 of 1 - PPSV23)[facility]: 55-75-5970Kdmucxwibx measurementCreatinine monitoringMarymount Hospital: 79-82-1665Aqtscctgz monitoringPotassium monitoringProMedica Bay Park Hospital, RUKHSANAStart: 00-94-1262Nmfnejkdu for malignant neoplasm of colonNOCedar County Memorial Hospitalart: 73-12-7555UTJ QnTSH testing [facility] HospitalRUKHSANA End: 75-34-6495ERYYC-19COVID-19 Lab Routine Tomorrow AM for 1 Occurrences starting 03/05/2020 until 03/05/2020[facility] HospitalRUKHSANAComment on above: Tomorrow AM for 1 Occurrences starting 03/05/2020 until 03/05/2020EKG 12 LeadEKG 12 Lead ECG STAT 03/10/2020 12:28 PM EDProvidence HospitalRUKHSANAOxygen therapy [Minimum Data Set]Initiate Oxygen Therapy Protocol Respiratory Care Routine Daily until discontinued starting 03/10/2020[facility] HospitalRUKHSANAComment on above:Daily until discontinued starting 03/10/2020Spirometry panelIncentive spirometry Respiratory Care Routine Every 2hr while awake until discontinued starting 03/10/2020[facility], RUKHSANAComment on above:Every 2hr while awake until discontinued starting 03/10/2020XR Cervical spine 2 or 3 ViewsXR cervical spine 2 or 3 views Imaging Routine Neck pain 03/19/2025 8:55 [facility]Ma[facility] CenterXR Shoulder - right 2 ViewsXR shoulder 2+ views right Imaging Routine Impingement syndrome of right shoulder 03/19/2025 7:49 AM [facility] Work Phone: Immunizations Immunization DateImmunizationNotesCare VedvfmzcVlvtebdm81-42-7259QQOT-ZkD-3 (COVID-19) mRNA BNT-162b2 Yecenia Sanchez 271-7272Fynldd-MzbisOhiohealth Mansfield Hospital 74-31-7410UHQN-CoV-2 (COVID-19) mRNA BNT-162b2 Yecenia Sanchez 203-5721Qiiycu-CoqapOhiohealth Mansfield Hospital NEGATED: Highlighted row has not occurred!92-49-4873gooquyirw virus vaccine, unspecified formulationMoalex Sanchez 448-4482Qxzpqw-FuoeoWayne Hospital Aristides NEGATED: Highlighted row has not occurred!55-66-0670slekhwxma virus vaccine, unspecified formulationAbdifatah Sanchez 775-9622Mmhhqa-RjkcxWayne Hospital Aristides NEGATED: Highlighted row has not occurred!58-95-5436xtqwnqvyv virus vaccine, unspecified formulationAkbar He 232-7396Xyzzzq-IeoavPromedica Defiance Regional [facility] DatePayer CategoryPayerPolicy ID01-01-2024Medicaid [id number] 2..[id number]-rfg75-76-3622Nxskemy Health Insurance [id number] 1.2.840.072942.1.13.239.2.7.3.287[id number] 2.16.840.1.452419.3.57[id number] 2.16.840.1.990523.3.57[id number] 2.16.840.1.831984.3.57[id number] 2.16.840.1.256076.3.579.2.35253-24-5528Ljzuvxg51017312 2.16.840.1.218387.3.579.[id number] 2.16.840.1.678548.3.579.2.07697-72-5415Vtkfjxn21480282 2.16.840.1.755483.3.579.2.78014-40-1702Sobrqfi1093159 2.16.840.1.318019.3.579.2.39806-72-2213Bjzxrvn6038636 2.840.1.498563.3.579.2.14271-23-5397Rwdamxz1501129 2.16840.1.257316.3.579.2.53161-71-8109Wgpdkkf59793384 2.16840.1.903634.3.579.2.33245-31-2205Cvnhfoy32815295 2.840.1.154197.3.579.2.50360-25-0675Hzrriwo66572946 2.0.1.158355.3.579.2.79361-77-5369Zqnvnjr65096755 2.0.1.321679.3.579.2.34330-17-1771Dckggve90164843 2.0.1.550457.3.579.2.72436-64-1421Ttfekcu12133655 2.0.1.466017.3.579.2.85057-64-3625Xfnaxxl47368052 2.0.1.716948.3.579.2.26341-36-9974Mgawojg82457118 2.0.1.862845.3.579.2.00501-33-0902Qrixejl97968711 2.0.1.543667.3.579.2.25720-16-1491Ryknlux76938239 2.0.1.349037.3.579.2.40083-47-4705Kzrpbvh32366085 2.840.1.289332.3.579.2.67877-49-5905Zqqzkwy68556840 2.840.1.283900.3.579.2.44191-14-8849Prksxzm56873962 2.16.840.1.170423.3.579.2.68724-43-2629Phvbmhe65060306 2..840.1.121216.3.579.2.87256-22-7911Avjummd83042357 2.16.840.1.817086.3.579.2.16290-36-2112Bmodtwt67453098 2.840.1.409535.3.579.2.32844-34-1200Jbdlmbf33999863 2..840.1.601300.3.579.2.667020-43-1200Ttmodbz09925743 2.840.1.982535.3.579.2.763457-59-4352Twlnoir09341296 2.840.1.359591.3.579.2.208768-20-2535Kkqzxtp18076541 2.840.1.875035.3.579.2.433851-56-9648Ueadhtl48108850 2.0.1.542576.3.579.2.620755-69-7481Tdsjvvz9621640 2.840.1.078722.3.579.2.829633-55-3579Uelnjzu3171563 2.840.1.465627.3.579.2.406448-39-4625Wpidedn7190768 2.840.1.160033.3.579.2.611313-94-8323Mwepwxu7494967 2.840.1.048713.3.579.2.478335-86-7294Glqgvll9575107 2.840.1.015541.3.579.2.441777-80-9088Bzhyrtb9053467 2.840.1.780880.3.579.2.494334-10-4600Jwgbcww1738207 2..840.1.121842.3.579.2.820977-52-6596Dcxzycr5946024 2.16.840.1.040193.3.579.2.203233-18-1836Yegtpkd0416126 2..840.1.058281.3.579.2.384698-18-4784Sendbhe1429522 2..840.1.435924.3.579.2.866262-41-7954Sggxdcc3780360 2..840.1.587991.3.579.2.164538-27-7699Tqmqdzx9259156 2..840.1.229194.3.579.2.579070-08-7302Izyzhuc2332529 2.0.1.207472.3.579.2.407169-44-2447UjtdptxOOW16850811H25-59-5787Rqdnhgg UPX53764151Y57Bxgehqk32715921 2.0.1.610952.3.579.2.531 Social History DateTypeDetailFacilityStart: 02-01-2020 End: 00-45-1529Swyqgbr smoking status NHISCurrent every day smokerGib[place] End: 23-11-1948Wgjrzze of tobacco useCigarette SmokerMarymount Hospital: 02-01-2020 End: 33-34-2580Acwnygtorz smoked current (pack per day) - ReportedMarymount Hospital: 02-01-2020 End: 39-81-8458Rkbtzku use and exposureNever usedMarymount Hospital: 02-01-2020 End: 63-95-2854Yzdmpew intakeCurrent drinker of alcohol (finding)[facility]: 94-50-2025Ijooptx SDOH Alcohol Bxitgxaia5EmehzMarymount Hospital: 45-09-3727Uocfifm CommentSOCIALLYMarymount Hospital: 93-65-3106Sxd Assigned At BirthNot on [place], [place]Exposure to SARS-CoV-2 (event) Not sureMarymount Hospital: 03-10-2020 End: 32-72-8069Hrxznli smoking status NHISFormer smokerOhiohealth Mansfield Hospital End: 77-20-3131Wwldmnh of tobacco useCurrent smokerFairfield Medical Centerart: 33-80-8759Tzjeuoz CommentRareMMercy Health Kings Mills Hospital: 04-11-2022 End: 12-62-4242Gbdxmmk smoking statusHeavy tobacco smoker (finding)[facility] HospitalStart: 38-60-0703Xwsjbnm smoking status NeverOhiohealth Mansfield HospitalStart: 06-29-2024 End: 51-89-3975Jgf Assigned At [facility] CenterFeRegional Medical Centertart: 22-81-4240Rmw Assigned At [facility] Hospitaltart: 15-44-4403Hvzxfgv smoking statusLight tobacco smoker (finding)[facility] HospitalTobacc smoking status NHISTobacco smoking consumption unknownNOMS HealthcareSexual OrientationParkview Health Bryan Hospital SexFemale (finding)[facility] Medical Equipment Procedure CodeEquipment CodeEquipment Original TextEquipment IdentifierDatesMary [facility]ogene [facility] Surg Hernia Repair 30 Cm Inguinal Macroporous [id number]_nkuBugtb: 03-10-2020 Functional Status QfhtCqturrsereCkvbcoCptskbzg93-34-4325Tnfxaotong StatusN/[facility] Gaheleps01-34-7402Anmqktvqye StatusN/[facility]09-05-2024Functional StatusN/[facility] Ibxhlx85-59-8930Yhxybsgkfq StatusN/[facility]11-09-2022Functional StatusTelehealth PatientOhiohealth Mansfield Hospital Clinical Notes 04-16-2022 to 04-09-2025 Note Date & BfiyQhvcFbzvygfo15-60-0023 History of Present illness Narrative* uHma Escoto, ASSISTANT MANAGER TRAINEE - 04/09/2025 10:30 AM EST Images from the original note were not included. Physical Therapy Treatment Visit Patient Name: Marianne Stephenson Today's Date: 04/09/2025 Encounter Diagnoses Name Primary? Impingement syndrome of right shoulder Yes Neck pain Radiculopathy, cervical Visit number: 2 Timed Code Treatment Minutes: 40 minutes Total Treatment Time: 50 minutes Time In: 1030 AM Time Out: 11:20 AM History: Pt states she was seen in PT for left shoulder pain in the summer which improved. States she was in [place] back in Jan and lifted her niece. Since then, she has noticed tingling going down right UE. States through chiro and massage the tingling in right has has decrease to 3 fingers vs 5.States she also just finished a round of oral steroids and tingling is down to hand vs fingers. States she can control tingling in her fingers and pain in her arm by moving her head up and down. Spasms have decreased since finishing steroids but states she continues with other sx's. Pt states will return to Dr on 04/16/25. Precautions: Van Subjective: Pt reports felt slightly worse after last session. was hoping to get into her massage therapist today but was unable to get in. Pt notes noticed right hand was slightly more swollen than left. Pain: 3/10, more tingling vs pain Objective: PT Evaluation (04/06/2025) CERVICAL AROM: 50 degrees flexion with light ache in upper arm, 40 degrees extension with increase tingling down right UE and into 1-3 digits, 32 degrees right SB with increase tingling right UE, 24 degrees left SB with pulling in left UT, 65 degrees right rotation, 60 degrees left rotation Joint play: limited lower cervical mobility MMT: not tested due to pain Muscle length: tightness right upper trap Palpation: mild tenderness bilateral UT's Special Test: mild ache right forearm with cervical compression and right Spurling's; increase painand tingling in right hand with left Spurling's Neurological: Reflexes: not tested Myotomes: intact Dermatomes: intact Special test: negative Jb's sign Treatment: Education: HEP education with demonstration, Educated on Eval Findings and POC Manual Therapy: (15 minutes) Passive ROM, Joint mobilization, Soft Tissue Mobilization, Myofascial Release, Muscle Energy Technique, Neural Mobilization, Myofascial Cupping, Dry Needling, IASTM, and Scar mobilization as needed. Manual c-spine distraction in supine and gentle mobs to increase mobility Therapeutic Exercise: (25 minutes) Strength, Endurance, Flexibility, ROM, HEP, Neural Mobilization,Power, and Core Stability as needed. Pt performed and instructed in home program this date; writteninstructions and pictures issued with good pt understanding. Therapeutic Activity: Exercises to improve dynamic activities, functional tasks, functional mobility to return to prior activity level as needed. Neuromuscular re-education: Balance Training, Muscle Facilitation, Dynamic Stability, Core Stabilization, and Blood Flow Restriction Training (BFRT) as needed. Modalities: Heat, Ice, Electrical Stimulation, Ultrasound, Cervical Mechanical Traction, Lumbar Mechanical Traction, Iontophoresis, and Fluidotherapy as needed. CP x 10 minutes in supine Assessment: Pt is 49 y/o female with complaints of neck and right UE pain. Pt with increase right UE sx's at end range neck extension and right SB. Continued with gentle cervical passive ROM stretches with STM to help reduce pain. Pt was instructed and performed cervical stretches and active ROM exercises per grid, to help improve functional mobility. Pt noted slight reduction in symptoms end of session. Ended with CP with pt in supine position. Will continue to monitor and progress as tolerated. Outcome Measure: Neck Disability Index (NDI): 26/50 Rehab Diagnosis: neck pain, decrease ROM and mobility Short Term Goal: To be met in 2 weeks Goal 1: Pt to be instructed in home exercise program. Intermediate Goals: To be met in 10 weeks Goal 1: Pt to report independence and compliance with home program. Goal 2: Pt to report pain no greater than 2/10 in cervical region with functional mobility and ADL's. Goal 3: Pt to achieve 32 degrees of left SB indicating improved flexibility right UT. Goal 4: Pt to present without complaints of increase right UE pain, numbness, or tingling in right UE with cervical compression or Spurling's testing. Goal 5: Pt to score no greater than 16/50 on NDI indicating improved QOL. Pt will benefit from skilled PT for 2x/week from 04/06/2025 to 07/05/2025 to address the above impairments. I hereby deem this POC medically necessary. Please sign below. Date: documented in this encounterKansas City VA Medical [id number] History of Present illness Narrative* Taina Nguyenoney - 03/19/2025 9:00 AM EDT Images from the original note were not included. Marianne Stephenson is a 49 y.o. female presents with chief complaint of right shoulder and neck pain. HPI: Marianne is a 49-year-old white female who presents complaining of right shoulder and neck pian. Thishas been going on since January of 2025. She denies any injury. She reports tingling coming all the way down to her hand. She has seen a chiropractor, massage therapy. She describes them as lessening the tingling but she has not been rendered a diagnosis. She does take naproxen a couple of times here and there. She has tried a little bit of ice. She can move her neck in a way that re-creates the symptoms. SUBJECTIVE: MEDICATIONS: Current Outpatient Medications Medication Instructions BABY ASPIRIN PO Take by mouth cyanocobalamin (VITAMIN B-12) 100 mcg, Daily levothyroxine (SYNTHROID, LEVOXYL) 175 mcg, Daily loratadine (CLARITIN) 10 mg, Daily magnesium 30 mg, 2 times daily naproxen (NAPROSYN) 500 mg, Oral, 2 times daily with meals omega-3 (fish oil) 1000 MG capsule 1 capsule, Daily predniSONE (Deltasone) 10 MG tablet As directed orally - Take 6 tabs day 1 and 2, 5 tabs day 3 and 4, 4 tabs day 5 and 6, 3 tabs day 7 and 8, 2 tabs day 9 and 10, and 1 tab day 11 and 12. vitamin C 250 mg, Daily VITAMIN D PO Take by mouth ALLERGIES: Allergies[1] SURGICAL HISTORY: Surgical History[2] FAMILY HISTORY: Family History[3] SOCIAL HISTORY: Social History[4] Depression: Not on file REVIEW OF SYMPTOMS: The review of systems, history and current medications list are all reviewed today. OBJECTIVE: Visit Vitals Ht 5' 10 Wt 302 lb BMI 43.33 kg/m Smoking Status Former BSA 2.6 m Physical Exam Her orthopedic exam here today reveals a pleasant morbidly obese 49-year-old white female. She is in no acute distress. She answers all questions appropriately. She does have positive Spurling compression sign on her neck with side bending to the right. She does have intact biceps, triceps, and brachial radialis reflexes at 2/4 and symmetric. There is no atrophy. Impingement testingis negative bilaterally. Cuff strength is excellent bilaterally. Examination of the x-rays AP, lateral of the cervical spine, total of two views with permanent images are saved to the record does show rather significant degenerative disc change at C6-7. No evidence of fracture. X-rays of the shoulder AP and lateral total of two views with permanent images are saved to the record does show evidence of mild osteoarthritis. The acromiohumeral interval is well maintained. ASSESSMENT AND PLAN: Assessment/Plan Right shoulder pain with cervical degenerative disc disease and cervical radiculopathy, right upper extremity. Morbid obesity. The findings are discussed. She is started on the office tapering dose prednisone schedule. She will taper to naproxen twice daily. We will go ahead with physical therapy NOMSusie Yanez. This is to include a trial of cervical traction. We will ultimately see her back here in one month for recheck and re view. All of her questions are otherwise answered this day. She is discharged in stable condition. [1] No Known Allergies [2] Past Surgical History: Procedure Laterality Date SECTION, CLASSIC HERNIA REPAIR [3] Family History Problem Relation Name Age of Onset Diabetes Mother Heart disease Father [4] Social History Tobacco Use Smoking status: Former Types: Cigarettes Smokeless tobacco: Never Vaping Use Vaping status: Never Used Substance Use Topics Alcohol use: Yes Drug use: Not Currently Types: Methamphetamines, Marijuana Cosigned by Alexey Krishnan DO at 03/22/2025 11:22 AM EDT documented in this encounterKansas City VA Medical [id number] NoteProgress Note - Nutrition Marianne was scheduled for initial RD visit r/t wt status on 02/10/25. She was a no show for this visit. Here referral is good for one calender year should she decide to make another initial MNT appointment. Thank you for the referral. [facility]08-18-2025 NotePatient Education Gastroenterology Obesity, Adult Obesity is having too much body fat. Being obese means that your weight is more than what is healthy for you. BMI (body mass index) is a number that explains how much body fat you have. If you have a BMI of 30or more, you are obese. Obesity can cause serious health problems, such as: ??? Stroke. ??? Coronary artery disease (CAD). ??? Type 2 diabetes. ??? Some types of cancer. ??? High blood pressure (hypertension). ??? High cholesterol. ??? Gallbladder stones. Obesity can also contribute to: ??? Osteoarthritis. ??? Sleep apnea. ??? Infertility problems. What are the causes? Eating meals each day that are high in calories, sugar, and fat. ??? Drinking a lot of drinks that have sugar in them. ??? Being born with genes that may make you more likely to become obese. ??? Having a medical condition that causes obesity. ??? Taking certain medicines. ??? Sitting a lot (having a sedentary lifestyle). ??? Not getting enough sleep. What increases the risk? Having a family history of obesity. ??? Living in an area with limited access to: ? [place], recreation centers, or sidewalks. ? Healthy food choices, such as grocery stores and farmers' markets. What are the signs or symptoms? The main sign is having too much body fat. How is this treated? Treatment for this condition often includes changing your lifestyle. Treatment may include: ??? Changing your diet. This may include making a healthy meal plan. ??? Exercise. This may include activity that causes your heart to beat faster (aerobic exercise) and strength training. Work with your doctor to design a program that works for you. ??? Medicine to help you lose weight. This may be used if you are not able to lose one pound a weekafter 6 weeks of healthy eating and more exercise. ??? Treating conditions that cause the obesity. ??? Surgery. Options may include gastric banding and gastric bypass. This may be done if: ? Other treatments have not helped to improve your condition. ? You have a BMI of 40 or higher. ? You have life-threatening health problems related to obesity. Follow these instructions at home: Eating and drinking ??? Follow advice from your doctor about what to eat and drink. Your doctor may tell you to: ? Limit fast food, sweets, and processed snack foods. ? Choose low-fat options. For example, choose low-fat milk instead of whole milk. ? Eat five or more servings of fruits or vegetables each day. ? Eat at home more often. This gives you more control over what you eat. ? Choose healthy foods when you eat out. ? Learn to read food labels. This will help you learn how much food is in one serving. ? Keep low-fat snacks available. ? Avoid drinks that have a lot of sugar in them. These include soda, fruit juice, iced tea with sugar, and flavored milk. ??? Drink enough water to keep your pee (urine) pale yellow. ??? Do not go on fad diets. Physical activity ??? Exercise often, as told by your doctor. Most adults should get up to 150 minutes of moderate-intensity exercise every week.Ask your doctor: ? What types of exercise are safe for you. ? How often you should exercise. ??? Warm up and stretch before being active. ??? Do slow stretching after being active (cool down). ??? Rest between times of being active. Lifestyle ??? Work with your doctor and a food expert (dietitian) to set a weight-loss goal that is best for you. ??? Limit your screen time. ??? Find ways to reward yourself that do not involve food. ??? Do not drink alcohol if: ? Your doctor tells you not to drink. ? You are , may be , or are planning to become . ??? If you drink alcohol: ? Limit how much you have to: ? 0?1 drink a day for women. ? 0?2 drinks a day for men. ? Know how much alcohol is in your drink. In the [place] one drink equals one 12 oz bottle of beer (355 mL), one 5 oz glass of wine (148 mL), or one 1? oz glass of hard liquor (44 mL). General instructions ??? Keep a weight-loss journal. This can help you keep track of: ? The food that you eat. ? How much exercise you get. ??? Take lipf-ftp-rmldcfu and prescription medicines only as told by your doctor. ??? Take vitamins and supplements only as told by your doctor. ??? Think about joining a support group. ??? Pay attention to your mental health as obesity can lead to depression or self esteem issues. ??? Keep all follow-up visits. Contact a doctor if: ??? You cannot meet your weight-loss goal after you have changed your diet and lifestyle for 6 weeks. ??? You are having trouble breathing. Summary ??? Obesity is having too much body fat. ??? Being obese means that your weight is more than what is healthy for you. ??? Work with your doctor to set a weight-loss goal. ??? Get regular exercise as told by your doctor. This information is not intend (more content not included)...[facility]04-09-2025 History of Present illness Narrative* Bev Flores, PT - 09/09/2024 8:30 AM EDT Images from the original note were not included. Physical Therapy Treatment Visit Patient Name: Marianne Stephenson Today's Date: 09/09/2024 Encounter Diagnoses Name Primary? Impingement syndrome of left shoulder Yes Arthritis of left shoulder region Visit number: 9 Timed Code Treatment: 38 minutes Total Treatment Time: 38 minutes Time In: 929 Time Out: 1008 History: Pt. Presents to PT with c/c left shoulder pain which she has had for several years. History: Pt. 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 Pt had injection on 06/29 to left shoulder with help to decrease shoulder pain. Reports shoulder feel 200% better after injection. Reports she does still have a dull ache in her shoulder. Has not tried a lot of tasks since injection. Right hand dominant. Denies N/T. 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 Precautions: universal Subjective: Pt. Reports she continues to have shoulder pain occasionally throughout the day. Overall she does have less shoulder pain. Compliant with HEP. 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 Left shoulder flexion 4/5, abduction 4-/5 with pain, scapular 4-/5 Posture: rounded shoulders Treatment: Manual Therapy: (8 minutes) Delivered manual ther to STM/TPR to pec minor and subclavius. PROM and GH grade II Mobs to improve arthrokinematic. Therapeutic Exercise: (30 minutes) Exercises to improve bilateral shoulder strength and painfree ROM. Cues needed to incorporate more scapular muscular stabilizers. Strength, Endurance, Flexibility, ROM, HEP, Neural Mobilization, Power, and Core Stability Therapeutic Activity: Exercises to improve dynamic activities, functional tasks, functional mobility to return to prior activity level Neuromuscular re-education: Balance Training, Muscle Facilitation, Dynamic Stability, Core Stabilization, and Blood Flow Restriction Training (BFRT) Modalities: Heat, Ice, Electrical Stimulation, Ultrasound, Cervical Mechanical Traction, Lumbar Mechanical Traction, Iontophoresis, and Fluidotherapy Assessment: Pt. Has participated in 9 PT session with start of POC on 07/27 for left shoulder impingement syndrome. Pt will benefit from skilled PT services. PT treatment to focus on improving postural muscle strength to help decrease on shoulder joint. Continued with scapular resistance exercises and tolerated well with good effort. Excessive tone throughout Upper chest/back, manual improved tone. Shld abd was painful today, reduced volume to these. Perform manual to help improve myofascial flexibility. Will continue PT treatment at 1x per week for 3 weeks to continue to improve scapular muscle strength. Outcome Measure: 63/80 UEFS Short Term Goal: To be met in 2 weeks Goal 1: Pt to be instructed in home exercise program. Intermediate Goals: To be met in 10 weeks Goal 1: Pt to report independence and compliance with home program. Goal 2: Pt. Will report of 0/10 left shoulder pain while perform overhead tasks to help improve herquality of life. Goal 3: Pt. Will demonstrate pain free shoulder ROM grossly in all planes to allow her to performing overhead activities. Goal 4: Pt. Will demonstrate 5/5 left shoulder strength grossly in all planes to allow her to perform overhead activities to improve her quality of life. Goal 5: Pt. Will demonstrate normal left shoulder muscle flexibility to allow her to perform overhead activities to improve her quality of life. Pt will benefit from skilled PT for 1-3x/week from 07/27/24 to 10/05/24 to address the above impairments. I hereby deem this POC medically necessary. Please sign below. Date: documented in this encounterKansas City VA Medical [id number] Telephone encounter Note* Telephone Encounter - Sonya Wagoner - 09/07/2024 2:47 PM EDT PT REASSESS ON 09/09/24. [facility] [id number] Miscellaneous Notes* Telephone Encounter - Sonya Wagoner - 09/07/2024 2:47 PM EDT PT REASSESS ON 09/09/24. * Telephone Encounter - Sonya Wagoner - 08/19/2024 11:22 AM EDT She called noting she is unable to make PT 08/20 due to work. I informed 08/20 was her last PT scheduled and she said she'd like to hold off a week. The of September she'll call back w/ ivan andif needed rs. documented in this encounterKansas City VA Medical [id number] Telephone encounter Note* Telephone Encounter - Sonya Wagoner - 08/19/2024 11:22 AM EDT She called noting she is unable to make PT 08/20 due to work. I informed 08/20 was her last PT scheduled and she said she'd like to hold off a week. The week of September she'll call back w/ status andif needed rs. [facility] [id number] History of Present illness Narrative* Taina Espinosa - 08/03/2024 9:15 AM EST Images from the original note were not included. Marianne Stephenson is a 48 y.o. female presents with chief complaint of left shoulder impingement. HPI: Marianne returns here today for repeat evaluation of the above. She is doing well. She states the injection was a miracle . She took one dose of the Meloxicam. She has not needed anything since. She denies any numbness or tingling. No fever or chills. She has been advancing her activities as is otherwise tolerated. SUBJECTIVE: MEDICATIONS: Current Outpatient Medications Medication Instructions BABY ASPIRIN PO Take by mouth levothyroxine (SYNTHROID, LEVOXYL) 175 mcg, Daily loratadine (CLARITIN) 10 mg, Daily magnesium 30 mg, 2 times daily meloxicam (MOBIC) 15 mg, Oral, Daily, With food. omega-3 (fish oil) 1000 MG capsule 1 capsule, Daily vitamin C 250 mg, Daily VITAMIN D PO Take by mouth ALLERGIES: No Known Allergies SURGICAL HISTORY: Past Surgical History: Procedure Laterality Date SECTION, CLASSIC HERNIA REPAIR FAMILY HISTORY: Family History Problem Relation Name Age of Onset Diabetes Mother Heart disease Father SOCIAL HISTORY: Social History Tobacco Use Smoking status: Former Types: Cigarettes Smokeless tobacco: Never Vaping Use Vaping status: Never Used Substance Use Topics Alcohol use: Yes Drug use: Not Currently Types: Methamphetamines, Marijuana Depression: Not on file REVIEW OF SYMPTOMS: The review of systems, history and current medications list are all reviewed today. OBJECTIVE: Visit Vitals Ht 5' 10 Wt 306 lb BMI 43.91 kg/m Smoking Status Former BSA 2.62 m Physical Exam Her orthopedic exam does reveal morbid obesity unchanged. Arc of motion of the shoulder is without difficulty. Cuff strength is excellent. She does have a bit of an impingement sign on the right side at roughly 130 degrees of flexion abduction. X-rays are none new. ASSESSMENT AND PLAN: Assessment/Plan Bilateral shoulder impingement with acromioclavicular joint osteoarthritis on the left. The findings are discussed. We did recommend supportive care for her and continuance of the therapy. We will add in therapy for the contralateral right shoulder as well which does likely exhibit the same scenario. We did discuss using the Meloxicam more for that side. We did outline that we can work up the right shoulder at any point should she desire. We will see her back here only as needed. All of her questions are otherwise answered. She is discharged in stable condition overall. Cosigned by Alexey Krishnan DO at 08/04/2024 1:16 PM EST documented in this encounterKansas City VA Medical [id number] History of Present illness Narrative* Bev Flores, PT - 07/29/2024 9:00 AM EST Physical Therapy Treatment Visit Patient Name: Marianne Stephenson Today's Date: 07/29/2024 Encounter Diagnoses Name Primary? Impingement syndrome of left shoulder Yes Arthritis of left shoulder region Visit number: 2 Timed Code Treatment Minutes: 45 minutes Total Treatment Time: 45 minutes Time In: 0900 Time Out: 09 History: Pt. Presents to PT with c/c left shoulder pain which she has had for several years. History: Pt. 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 Pt had injection on 06/29 to left shoulder with help to decrease shoulder pain. Reports shoulder feel 200% better after injection. Reports she does still have a dull ache in her shoulder. Has not tried a lot of tasks since injection. Right hand dominant. Denies N/T. 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 Precautions: universal Subjective: Pt. Reports of increased left arm soreness from home exercises. 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 Left shoulder flexion 4/5, abduction 4-/5 with pain, scapular 4-/5 Posture: rounded shoulders Treatment: PT evaluation Education: HEP education with demonstration, Educated on Eval Findings and POC Manual Therapy: (10 minutes) Passive ROM, Joint mobilization, Soft Tissue Mobilization, Myofascial Release, Muscle Energy Technique, Neural Mobilization, Myofascial Cupping, Dry Needling, IASTM, and Scar mobilization Therapeutic Exercise: (30 minutes) exercises in grid; Strength, Endurance, Flexibility, ROM, HEP, Neural Mobilization, Power, and Core Stability 6 minutes UBE Therapeutic Activity: Exercises to improve dynamic activities, functional tasks, functional mobility to return to prior activity level Neuromuscular re-education: Balance Training, Muscle Facilitation, Dynamic Stability, Core Stabilization, and Blood Flow Restriction Training (BFRT) Modalities: Heat, Ice, Electrical Stimulation, Ultrasound, Cervical Mechanical Traction, Lumbar Mechanical Traction, Iontophoresis, and Fluidotherapy Assessment: Pt. Has participated in 2 PT session with start of POC on 07/27 for left shoulder impingement syndrome. Pt will benefit from skilled PT services. PT treatment to focus on improving postural muscle strength to help decrease on shoulder joint. Added more scapular resistance exercises and tolerated well with good effort. Perform manual to help improve myofascial flexibility. Outcome Measure: 63/80 UEFS Short Term Goal: To be met in 2 weeks Goal 1: Pt to be instructed in home exercise program. Intermediate Goals: To be met in 10 weeks Goal 1: Pt to report independence and compliance with home program. Goal 2: Pt. Will report of 0/10 left shoulder pain while perform overhead tasks to help improve herquality of life. Goal 3: Pt. Will demonstrate pain free shoulder ROM grossly in all planes to allow her to performing overhead activities. Goal 4: Pt. Will demonstrate 5/5 left shoulder strength grossly in all planes to allow her to perform overhead activities to improve her quality of life. Goal 5: Pt. Will demonstrate normal left shoulder muscle flexibility to allow her to perform overhead activities to improve her quality of life. Pt will benefit from skilled PT for 1-3x/week from 07/27/24 to 10/05/24 to address the above impairments. I hereby deem this POC medically necessary. Please sign below. Date: documented in this encounterKansas City VA Medical [id number] Telephone encounter Note* Telephone Encounter - Sonya Wagoner - 07/17/2024 2:38 PM EST She contacted and we schedule out 07/27-08/07/24 w/ Bev Flores PT and Moreno Ansari PTA, [facility] [id number] Miscellaneous Notes* Telephone Encounter - Sonya Wagoner - 07/17/2024 2:38 PM EST She contacted and we schedule out 07/27-08/07/24 w/ Bev Flores PT and Moreno Ansari PTA, * Telephone Encounter - Sonya Wagoner - 07/15/2024 8:36 AM EST Gave a called but had to lm re: scheduling PT; requested a call back david to get scheduled. * Telephone Encounter - Sonya Wagoner - 07/09/2024 11:49 AM EST Contacted to set up PT eval, but she noted her father had 07/08 and feels the need of being off work providing assistance w/ family. She noted she can be contacted 07/15 before 10 or after 10:30. * Telephone Encounter - Sonya Wagoner - 07/02/2024 11:42 AM EST Tried to contact to schedule PT Eval for L shoulder; requested a call back. documented in this encounterNOProgress West [id number] Telephone encounter Note* Telephone Encounter - Sonya Wagoner - 07/15/2024 8:36 AM EST Gave a called but had to lm re: scheduling PT; requested a call back david to get scheduled. [facility] [id number] Telephone encounter Note* Telephone Encounter - Sonya Wagoner - 07/09/2024 11:49 AM EST Contacted to set up PT eval, but she noted her father had 07/08 and feels the need of being off work providing assistance w/ family. She noted she can be contacted 07/15 before 10 or after 10:30. [facility] [id number] NotePatient Education Nutrition BMI for Adults Body mass index (BMI) is a number found using a person's weight and height. BMI can help tell how much of a person's weight is made up of fat. BMI does not measure body fat directly. It is used instead of tests that directly measure body fat, which can be difficult and expensive. What are BMI measurements used for? BMI is useful to: ??? Find out if your weight puts you at higher risk for medical problems. ??? Help recommend changes, such as in diet and exercise. This can help you reach a healthy weight.BMI screening can be done again to see if these changes are working. How is BMI calculated? Your height and weight are measured. The BMI is found from those numbers. This can be done with [place] or metric measurements. Note that charts and online BMI calculators are available to help you findyour BMI quickly and easily without doing these calculations. To calculate your BMI in [place] measurements: 1. Measure your weight in pounds (lb). 2. Multiply the number of pounds by 703. ??? So, for an adult who weighs 150 lb, multiply that number by 703: 150 x 703, which equals 105,450. 3. Measure your height in inches. Then multiply that number by itself to get a measurement called inches squared. ??? So, for an adult who is 70 inches tall, the inches squared measurement is 70 inches x 70 inches, which equals 4,900 inches squared. 4. Divide the total from step 2 (number of lb x 703) by the total from step 3 (inches squared): 105,450 ? 4,900 = 21.5. This is your BMI. To calculate your BMI in metric measurements: 1. Measure your weight in kilograms (kg). ??? For this example, the weight is 70 kg. 2. Measure your height in meters (m). Then multiply that number by itself to get a measurement called meters squared. ??? So, for an adult who is 1.75 m tall, the meters squared measurement is 1.75 m x 1.75 m, whichequals 3.1 meters squared. 3. Divide the number of kilograms (your weight) by the meters squared number. In this example: 70 ?3.1 = 22.6. This is your BMI. What do the results mean? BMI charts are used to see if you are underweight, normal weight, overweight, or obese. The following guidelines will be used: ??? Underweight: BMI less than 18.5. ??? Normal weight: BMI between 18.5 and 24.9. ??? Overweight: BMI between 25 and 29.9. ??? Obese: BMI of 30 or above. BMI is a tool and cannot diagnose a condition. Talk with your health care provider about what your BMI means for you. Keep these notes in mind: ??? Weight includes fat and muscle. Someone with a muscular build, such as an athlete, may have a BMI that is higher than 24.9. In cases like these, BMI is not a correct measure of body fat. ??? If you have a BMI of 25 or higher, your provider may need to do more testing to find out if excess body fat is the cause. ??? BMI is measured the same way for males and females. Females usually have more body fat than males of the same height and weight. Where to find more information For more information about BMI, including tools to quickly find your BMI, go to: ??? Centers for Disease Control and Prevention: cdc.gov ??? [place] Heart Association: heart.org ??? National Heart, Lung, and Blood [place]: nhlbi.nih.gov This information is not intended to replace advice given to you by your health care provider. Make sure you discuss any questions you have with your health care provider. Document Revised: 02/07/2023 Document Reviewed: 01/31/2023 [employer] Patient Education ? 2023 [employer].[facility] 07-02-2024 Telephone encounter Note* Telephone Encounter - Sonya Wagoner - 07/02/2024 11:42 AM EST Tried to contact to schedule PT Eval for L shoulder; requested a call back. [facility] [id number] History of Present illness Narrative* Eva Andre MA - 06/29/2024 9:15 AM ESTAssociated Order(s): L Inj/Asp: L glenohumeral Post-Procedure Diagnose(s): Arthritis of left shoulder region; Impingement syndrome of left shoulder L Inj/Asp: L glenohumeral on 06/29/2024 10:21 AM Indications: pain Details: 22 G needle Medications: 1 mL betamethasone acetate-betamethasone sodium phosphate 6 (3-3) MG/ML * Taina Espinosa - 06/29/2024 9:15 AM EST Images from the original note were not included. Marianne Stephenson is a 48 y.o. female presents with chief complaint of left shoulder pain. HPI: Marianne is a 48-year-old morbidly obese right hand dominant white female who presents complaining ofleft shoulder pain and difficulty. She describes this as many many years . It has gotten a little bit worse. She has had some therapy in the past. She cannot really relate what it was for. She has some occasional pain on the right. 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 She does attribute a lot of her discomfort to this in the past. SUBJECTIVE: MEDICATIONS: Current Outpatient Medications Medication Instructions BABY ASPIRIN PO Take by mouth levothyroxine (SYNTHROID, LEVOXYL) 175 mcg, Daily loratadine (CLARITIN) 10 mg, Daily magnesium 30 mg, 2 times daily meloxicam (MOBIC) 15 mg, Oral, Daily, With food. omega-3 (fish oil) 1000 MG capsule 1 capsule, Daily vitamin C 250 mg, Daily VITAMIN D PO Take by mouth ALLERGIES: No Known Allergies SURGICAL HISTORY: Past Surgical History: Procedure Laterality Date SECTION, CLASSIC HERNIA REPAIR FAMILY HISTORY: Family History Problem Relation Name Age of Onset Diabetes Mother Heart disease Father SOCIAL HISTORY: Social History Tobacco Use Smoking status: Former Types: Cigarettes Smokeless tobacco: Never Vaping Use Vaping status: Never Used Substance Use Topics Alcohol use: Yes Drug use: Not Currently Types: Methamphetamines, Marijuana Depression: Not on file REVIEW OF SYMPTOMS: The review of systems, history and current medications list are all reviewed today. OBJECTIVE: Visit Vitals Ht 5' 10 Wt 306 lb BMI 43.91 kg/m Smoking Status Former BSA 2.62 m Physical Exam Her orthopedic exam here today does reveal morbid obesity with a body mass index of 44. She is in no acute distress. She does have a positive impingement at roughly 110 degrees of flexion abduction. She does have tenderness right over the acromioclavicular joint with a positive cross over adduction test. She does have tenderness along her bra strap line here as well. Her range of motion is essentially full. Cuff strength is grossly intact with tenderness right over the supraspinatus. She has a negative Martin's, negative Speed's. Examination of the contralateral right shoulder reveals a negative impingement. Arc of motion is without difficulty. Cuff strength is excellent. Negative Martin's. Negative Speed's. Examination of the neck reveals range of motion without difficulty. Biceps, triceps, and brachial radialis reflexes are 2/4 and symmetric. X-rays done at the [facility] and lateral views of the left shoulder total of two views do show some acromioclavicular joint osteoarthritis, moderate in nature with some subclavicular spurring. The acromiohumeral interval is well maintained. No evidence of fracture or other osseous abnormality. ASSESSMENT AND PLAN: Assessment/Plan Left shoulder impingement syndrome with acromioclavicular joint osteoarthritis. Morbid obesity. The findings are discussed. This individual saw her primary care and is referred here. She has had no treatment. We did start her on Meloxicam at 15 mg daily. We will couple this with a corticosteroid injection. She is injected with 1 cc of Betamethasone and 3 cc of 1% Lidocaine plain (6 mg of Betamethasone with 3 ml of 1% Lidocaine plain). This is given per the office protocol under sterile technique. She did tolerate that injection well. We will go ahead with formal physical therapy through [facility]. We will see her back here in one month for a recheck and review. All of her questions areotherwise answered this day. We did discuss the pathophysiology of this problem and she does voice understanding of this. Cosigned by Alexey Krishnan DO at 06/30/2024 3:00 PM EST documented in this encounterKansas City VA Medical [id number] NotePatient Education Orthopedics Shoulder Pain Many things can cause shoulder pain, including: ??? An injury. ??? Moving the shoulder in the same way again and again (overuse). ??? Joint pain (arthritis). Pain can come from: ??? Swelling and irritation (inflammation) of any part of the shoulder. ??? An injury to: ? The shoulder joint. ? Tissues that connect muscle to bone (tendons). ? Tissues that connect bones to each other (ligaments). ? Bones. Follow these instructions at home: Watch for changes in your symptoms. Let your doctor know about them. Follow these instructions to help with your pain. If you have a sling that can be taken off: ??? Wear the sling as told by your doctor. Take it off only as told by your doctor. ??? Check the skin around the sling every day. Tell your doctor if you see problems. ??? Loosen the sling if your fingers: ? Tingle. ? Become numb. ? Become cold. ??? Keep the sling clean. ??? If the sling is not waterproof: ? Do not let it get wet. ? Take the sling off when you shower or bathe. Managing pain, stiffness, and swelling ??? If told, put ice on the painful area. ? Put ice in a plastic bag. ? Place a towel between your skin and the bag. ? Leave the ice on for 20 minutes, 2?3 times a day. Stop putting ice on if it does not help with the pain. ? If your skin turns bright red, take off the ice right away to prevent skin damage. The risk of damage is higher if you cannot feel pain, heat, or cold. ??? Squeeze a soft ball or a foam pad as much as possible. This prevents swelling in the shoulder. It also helps to strengthen the arm. General instructions ??? Take smfp-mzi-ynpvulk and prescription medicines only as told by your doctor. ??? Keep all follow-up visits. This will help you avoid any type of permanent shoulder problems. Contact a doctor if: ??? Your pain gets worse. ??? Medicine does not help your pain. ??? You have new pain in your arm, hand, or fingers. ??? You loosen your sling and your arm, hand, or fingers: ? Tingle. ? Are numb. ? Are swollen. Get help right away if: ??? Your arm, hand, or fingers turn white or blue. This information is not intended to replace advice given to you by your health care provider. Make sure you discuss any questions you have with your health care provider. Document Revised: 12/21/2022 Document Reviewed: 12/21/2022 [employer] Patient Education ? 2023 [employer].[facility] 02-25-2024 NoteProgress Note-Physician Patient: MARIANNE STEPHENSON Age: 48 years Sex: Female : 1975 Associated Diagnoses: None Author: Bismark Pfeiffer Jr, DO Preoperative Information Anesthesia Preop Info: Time patient last ate or drank 02/24/2024 00:00:00. Anesthesia history: Patient history: None. Family history+: None. Informed consent: Signed by patient. Re-evaluation prior to induction: Initial evaluation reviewed: No significant change. Review of Systems Eye: Negative except as documented in history of present illness. Ear/Nose/Mouth/Throat: Negative except as documented in history of present illness. Respiratory: Negative except as documented in history of present illness. Cardiovascular: Negative except as documented in history of present illness. Musculoskeletal: Negative except as documented in history of present illness. Neurologic: Negative except as documented in history of present illness. Health Status Allergies: Allergic Reactions (Selected) No Known Medication Allergies Problem list: All Problems Varicose veins of legs / SNOMED CT 097785067 / Confirmed Stress / SNOMED CT 577082696 / Confirmed Bilateral shoulder pain / SNOMED CT 85090201 / Confirmed Obesity due to excess calories / SNOMED CT 5913122370 / Confirmed Class 3 obesity / SNOMED CT 4475161756 / Confirmed Nausea / SNOMED CT 8047521822 / Confirmed Hypothyroid / SNOMED CT 54483898 / Confirmed Generalized abdominal pain / SNOMED CT 322883422 / Confirmed GERD without esophagitis / SNOMED CT 4090560840 / Confirmed Stress incontinence, female / SNOMED CT 772328916 / Confirmed Former smoker / SNOMED CT 13919441 / Confirmed Early satiety / SNOMED CT 5693782526 / Confirmed Excessive dietary caloric intake / SNOMED CT 867818347 / Confirmed Bloating / SNOMED CT 295288280 / Confirmed Canceled: Smoker / SNOMED CT 997935119 Canceled: Annual physical exam / SNOMED CT 777740554 Canceled: Breast cancer screening / SNOMED CT 957951579 Canceled: Obesity due to excess calories / SNOMED CT 2101091217 Canceled: Cough / SNOMED CT 21192401 Canceled: Acute URI / SNOMED CT 94826404 Histories Procedure history: History of repair of umbilical hernia ([id number]) in 2020 at 44 Years. Comments: 04/11/2022 11:23 Mera Britton LPN Pt has had 3 surgeries. The first was for an umbilical hernia and the other two were for repairs. Cholecystectomy (45543863) in 2018 at 42 Years. section (68273634) in 2007 at 32 Years. Social History Social & Psychosocial Habits Alcohol 02/06/2024 Risk Assessment: Denies Alcohol Use Substance Abuse 02/06/2024 Use: Past Type: Methamphetamines Previous treatment: None Started at age: 17 Years Stopped at age: 26 Years Tobacco 02/06/2024 Tobacco Use: Former smoker, quit more Smokeless tobacco use: Never Type: Cigarettes Started at age: 18.0 Years Ready to change: No Concerns about tobacco use in household: No Smoking Cessation Yes 02/06/2024 Tobacco Use: Former smoker, quit more . Physical Examination Airway: Mallampati classification: II (soft palate, fauces, uvula visible). Respiratory: adequate air exchange. Cardiovascular: Regular rhythm. Plan [place] [employer] (ASA) physical status classification: Class III. Anesthetic Preoperative Plan: Anesthesia General.[facility] Comment on above:Result Comment: Electronically Signed By: Bismark Pfeiffer Jr, DO\.br\Date and Time Signed: 02/25/24 02:54 [id number] NoteProgress Note-Physician Patient: MARIANNE STEPHENSON Age: 48 years Sex: Female : 1975 Associated Diagnoses: None Author: Bismark Pfeiffer Jr, DO Postoperative Information Postoperative disposition: Postoperative disposition: To PACU. Optimetrix number: Optimetrix number [id number]. Anesthetic utilized: General. Health Status Allergies: Allergic Reactions (Selected) No Known Medication Allergies Physical Examination Vital Signs 02/24/2024 10:25 EDT Heart Rate Monitored 67 bpm Respiratory Rate Monitored 20 br/min Systolic Blood Pressure 125 mmHg Diastolic Blood Pressure 88 mmHg SpO2 95 % 02/24/2024 10:15 EDT Heart Rate Monitored 73 bpm Respiratory Rate Monitored 18 br/min Systolic Blood Pressure 117 mmHg Diastolic Blood Pressure 72 mmHg SpO2 95 % 02/24/2024 10:10 EDT Heart Rate Monitored 80 bpm Respiratory Rate Monitored 12 br/min Systolic Blood Pressure 109 mmHg Diastolic Blood Pressure 64 mmHg SpO2 95 % 02/24/2024 10:05 EDT Heart Rate Monitored 87 bpm Respiratory Rate Monitored 14 br/min Systolic Blood Pressure 109 mmHg Diastolic Blood Pressure 66 mmHg SpO2 96 % 02/24/2024 9:59 EDT Temperature Temporal Artery 36.7 DegC Heart Rate Monitored 82 bpm Respiratory Rate Monitored 10 br/min Systolic Blood Pressure 100 mmHg Diastolic Blood Pressure 53 mmHg LOW SpO2 93 % Pain Assessment: Controlled. General: Awake, Alert, Appropriate. Respiratory: Adequate air exchange. Cardiovascular: Stable, Normal peripheral perfusion. Neurological: Normal sensory function, Normal motor function. Assessment Anesthetic outcome No anesthetic complications noted. Adequate pain relief. able to void without difficulty, able to ambulate with assist, tolerating PO intake, no N/V. Review / Management Condition: Stable. Plan Transfer/Discharge: Transfer/Discharge Discharge when meets criteria ( To home ).[facility]:Result Comment: Electronically Signed By: Bismark Pfeiffer Jr, DO\.br\Date and Time Signed: 02/25/24 02:53 EDT 02-24-2024 Hospital Discharge instructions Patient Education 02/24/2024 10:09:59 Upper Endoscopy, Adult, Care After Upper Endoscopy, Adult, Care After After the procedure, it is common to have a sore throat. It is also common to have: Mild stomach pain or discomfort. Bloating. Nausea. Follow these instructions at home: The instructions below may help you care for yourself at home. Your health care provider may give you more instructions. If you have questions, ask your health care provider. If you were given a sedative during the procedure, it can affect you for several hours. Do not drive or operate machinery until your health care provider says that it is safe. If you will be going home right after the procedure, plan to have a responsible adult: ?Take you home from the hospital or clinic. You will not be allowed to drive. ?Care for you for the time you are told. Follow instructions from your health care provider about what you may eat and drink. Return to your normal activities as told by your health care provider. Ask your health care provider what activities are safe for you. Take dbds-lbs-eighojk and prescription medicines only as told by your health care provider. Contact a health care provider if you: Have a sore throat that lasts longer than one day. Have trouble swallowing. Have a fever. Get help right away if you: Vomit blood or your vomit looks like coffee grounds. Have bloody, black, or tarry stools. Have a very bad sore throat or you cannot swallow. Have difficulty breathing or very bad pain in your chest or abdomen. These symptoms may be an emergency. Get help right away. Call 911. Do not wait to see if the symptoms will go away. Do not drive yourself to the hospital. Summary After the procedure, it is common to have a sore throat, mild stomach discomfort, bloating, and nausea. If you were given a sedative during the procedure, it can affect you for several hours. Do not drive until your health care provider says that it is safe. Follow instructions from your health care provider about what you may eat and drink. Return to your normal activities as told by your health care provider. This information is not intended to replace advice given to you by your health care provider. Make sure you discuss any questions you have with your health care provider. Document Revised: 08/29/2022 Document Reviewed: 08/29/2022 [employer] Patient Education 2023 [employer]. 02/24/2024 10:09:55 Gastritis, Adult Gastritis, Adult Gastritis is inflammation of the stomach. There are two kinds of gastritis: Acute gastritis. This kind develops suddenly. Chronic gastritis. This kind is much more common. It develops slowly and lasts for a long time. Gastritis happens when the lining of the stomach becomes weak or gets damaged. Without treatment, gastritis can lead to stomach bleeding and ulcers. What are the causes? This condition may be caused by: An infection. Drinking too much alcohol. Certain medicines. These include steroids, antibiotics, and some yegw-tha-mceisyq medicines, such as aspirin or ibuprofen. Having too much acid in the stomach. Having a disease of the stomach. Other causes may include: An allergic reaction. Some cancer treatments (radiation). Smoking cigarettes or the use of products that contain nicotine or tobacco. In some cases, the cause of this condition is not known. What increases the risk? Having a disease of the intestines. Having a disease in which the body's immune system attacks the body (autoimmune disease), such as Crohn's disease. Using aspirin or ibuprofen and other NSAIDs to treat other conditions, such as heart disease or chronic pain. Stress. What are the signs or symptoms? Symptoms of this condition include: Pain or a burning sensation in the upper abdomen. Nausea. Vomiting. An uncomfortable feeling of fullness after eating. Weight loss. Bad breath. Blood in your vomit or stool (feces). In some cases, there are no symptoms. How is this diagnosed? This condition may be diagnosed based on your medical history, a physical exam, and tests. Tests may include: Your medical history and a description of your symptoms. A physical exam. Tests. These can include: ?Blood tests. ?Stool tests. ?A test in which a thin, flexible instrument with a light and a camera is passed down the esophagusand into the stomach (upper endoscopy). ?A test in which a tissue sample is removed to look at it under a microscope (biopsy). How is this treated? This condition may be treated with medicines. The medicines that are used vary depending on the cause of the gastritis. If the condition is caused by a bacterial infection, you may be given antibiotic medicines. If the condition is caused by too much acid in the stomach, you may be given medicines called H2 blockers, proton pump inhibitors, or antacids. Treatment may also involve stopping the use of certain medicines such as aspirin or ibuprofen and other NSAIDs. Follow these instructions at home: Medicines Take zucj-xim-zelgnqq and prescription medicines only as told by your health care provider. If you were prescribed an antibiotic medicine, take it as told by your health care provider. Do notstop taking the antibiotic even if you start to feel better. Alcohol use Do not drink alcohol if: ?Your health care provider tells you not to drink. ?You are , may be , or are planning to become . If you drink alcohol: ?Limit your use to: ?0 1 drink a day for women. ?0 2 drinks a day for men. ?Know how much alcohol is in your drink. In the [place] one drink equals one 12 oz bottle of beer (355 mL), one 5 oz glass of wine (148 mL), or one 1 oz glass of hard liquor (44 mL). General instructions Eat small, frequent meals instead of large meals. Avoid foods and drinks that make your symptoms worse. Talk with your health care provider about ways to manage stress, such as getting regular exercise or practicing deep breathing, meditation, or yoga. Do not use any products that contain nicotine or tobacco. These products include cigarettes, chewing tobacco, and vaping devices, such as e-cigarettes. If you need help quitting, ask your health careprovider. Drink enough fluid to keep your urine pale yellow. Keep all follow-up visits. This is important. Contact a health care provider if: Your symptoms get worse. Your abdominal pain gets worse. Your symptoms return after treatment. You have a fever. Get help right away if: You vomit blood or a substance that looks like coffee grounds. You have black or dark red stools. You are unable to keep fluids down. These symptoms may represent a serious problem that is an emergency. Do not wait to see if the symptoms will go away. Get medical help right away. Call your local emergency services (911 in the [place] Do not drive yourself to the hospital. Summary Gastritis is inflammation of the lining of the stomach that can occur suddenly (acute) or develop slowly over time (chronic). This condition is diagnosed with a medical history, a physical exam, or tests. This condition may be treated with medicines to treat infection or medicines to reduce the amount of acid in your stomach. Follow your health care provider's instructions about taking medicines, making changes to your diet, and knowing when to call for help. This information is not intended to replace advice given to you by your health care provider. Make sure you discuss any questions you have with your health care provider. Document Revised: 09/23/2021 Document Reviewed: 09/23/2021 [employer] Patient Education 2023 [employer]. 02/24/2024 10:09:53 Colonoscopy, Care After Surgery Salam (CUSTOM) Colonoscopy Care After Surgery Please read the instructions outlined below and refer to this sheet in the next few weeks. These discharge instructions provide you with general information on caring [facility] Your doctor may also give you specific instructions. While your treatment has been planned according to the most current medical practices available, unavoidable complications occasionally occur. If you have any problems or questions after discharge, please call your doctor. ACTIVITY You may resume your regular activity, but move at a slower pace for the next 24 hours. Take frequent rest periods for the next 24 hours. Walking will help get rid of the air and reduce the bloated feeling in your abdomen (belly). No driving for 24 hours (because of the anesthesia (medicine) used during the test). You may shower. Do not sign any important legal documents or operate any machinery for 24 hours (because of the anesthesia used during the test). NUTRITION Drink plenty of fluids. You may resume your normal diet as instructed by your doctor. Begin with a light meal and progress to your normal diet. Heavy or fried foods are harder to digestand may make you feel nauseated (sick to your stomach). Avoid alcoholic beverages for 24 hours or as instructed. MEDICATIONS You may resume your normal medications unless your doctor tells you otherwise. WHAT YOU CAN EXPECT TODAY Some feelings of bloating in the abdomen. Passage of more gas than usual. Spotting of blood in your stool or on the toilet paper. FOLLOW-UP Your doctor will discuss the results of your test with you. SEEK IMMEDIATE MEDICAL ATTENTION IF: There is more than a spotting of blood in your stool. There is abdominal distention (your abdomen is swollen). There is vomiting. You have a temperature over 101.5 F. There is abdominal pain or discomfort that is severe or gets worse throughout the day. 02/24/2024 10:09:52 Hemorrhoids Hemorrhoids Hemorrhoids are swollen veins in and around the rectum or the opening of the butt (anus). There aretwo types of hemorrhoids: Internal. These occur in the veins just inside the rectum. They may poke through to the outside andbecome irritated and painful. External. These occur in the veins outside the anus. They can be felt as a painful swelling or hardlump near the anus. Most hemorrhoids do not cause severe problems. Often, they can be treated at home with diet and lifestyle changes. If home treatments do not help, you may need a procedure to shrink or remove the hemorrhoids. What are the causes? Hemorrhoids are caused by pressure near the anus. This pressure may be caused by: Constipation or diarrhea. Straining to poop. . Obesity. Sitting or riding a bike for a long time. Heavy lifting or other things that cause you to strain. Anal sex. What are the signs or symptoms? Symptoms of this condition include: Pain. Anal itching or irritation. Bleeding from the rectum. Leakage of poop (stool). Swelling of the anus. One or more lumps around the anus. How is this diagnosed? Hemorrhoids can often be diagnosed through a visual exam. Other exams or tests may also be done, such as: A digital rectal exam. This is when your health care provider feels inside your rectum with a gloved finger. Anoscope. This is an exam of the anus using a small tube. A blood test, if you have lost a lot of blood. A sigmoidoscopy or colonoscopy. These are tests to look inside the colon using a tube with a cameraon the end. How is this treated? In most cases, hemorrhoids can be treated at home with diet and lifestyle changes. If these changesdo not help, you may need to have a procedure done. These procedures can make the hemorrhoids smaller or fully remove them. Common procedures include: Rubber band ligation. Rubber bands are placed at the base of the hemorrhoids to cut off their bloodsupply. Sclerotherapy. Medicine is put into the hemorrhoids to shrink them. Infrared coagulation. A type of light energy is used to get rid of the hemorrhoids. Hemorrhoidectomy surgery. The hemorrhoids are removed during surgery. Then, the veins that supply them are tied off. Stapled hemorrhoidopexy surgery. The base of the hemorrhoid is stapled to the wall of the rectum. Follow these instructions at home: Medicines Take utvr-nmi-lvkjrhb and prescription medicines only as told by your provider. Use medicated creams or medicines that are put in the rectum (suppositories) as told by your provider. Eating and drinking Eat foods that are high in fiber, such as beans, whole grains, and fresh fruits and vegetables. Ask your provider about taking products that have fiber added to them (fiber supplements). Reduce the amount of fat in your diet. You can do this by eating low-fat dairy products, eating less red meat, and avoiding processed foods. Drink enough fluid to keep your pee (urine) pale yellow. Managing pain and swelling Take warm sitz baths for 20 minutes, 3 4 times a day. This can help ease pain and discomfort. You may do this in a bathtub or you can use a portable sitz bath that fits over the toilet. If told, put ice on the affected area. It may help to use ice packs between sitz baths. ?Put ice in a plastic bag. ?Place a towel between your skin and the bag. ?Leave the ice on for 20 minutes, 2 3 times a day. If your skin turns bright red, remove the ice right away to prevent skin damage. The risk of damageis higher if you cannot feel pain, heat, or cold. General instructions Exercise. Ask your provider how much and what kind of exercise is best for you. In general, you should do moderate exercise for at least 30 minutes on most days of the week (150 minutes each week). You may want to try walking, biking, or yoga. Go to the bathroom when you have the urge to poop. Do not wait. Avoid straining to poop. Keep the anus dry and clean. Use wet toilet paper or moist towelettes after you poop. Do not sit on the toilet for a long time. This can increase blood pooling and pain. Where to find more information National [place] of Diabetes and Digestive and Kidney Diseases: niddk.nih.gov Contact a health care provider if: You have more pain and swelling that do not get better with treatment. You have trouble pooping or you are not able to poop. You have pain or inflammation outside the area of the hemorrhoids. Get help right away if: You are bleeding from your rectum and you cannot get it to stop. This information is not intended to replace advice given to you by your health care provider. Make sure you discuss any questions you have with your health care provider. Document Revised: 01/30/2023 Document Reviewed: 01/30/2023 [employer] Patient Education 2023 [employer]. Follow Up Care 02/06/2024 13:01:50 With:Laura ARCE, Abdifatah Pavon [facility], [facility] Address: [address] [place] [address], [address] [place] [address]- [phone] When: Unknown Comments:office will call for follow up [facility] 09-23-2024 NotePatient Education - Text Colonoscopy Care After Surgery Please read the instructions outlined below and refer to this sheet in the next few weeks. These discharge instructions provide you with general information on caring [facility] Your doctor may also give you specific instructions. While your treatment has been planned according to the most current medical practices available, unavoidable complications occasionally occur. If you have any problems or questions after discharge, please call your doctor. ACTIVITY You may resume your regular activity, but move at a slower pace for the next 24 hours. Take frequent rest periods for the next 24 hours. Walking will help get rid of the air and reduce the bloated feeling in your abdomen (belly). No driving for 24 hours (because of the anesthesia (medicine) used during the test). You may shower. Do not sign any important legal documents or operate any machinery for 24 hours (because of the anesthesia used during the test). NUTRITION Drink plenty of fluids. You may resume your normal diet as instructed by your doctor. Begin with a light meal and progress to your normal diet. Heavy or fried foods are harder to digestand may make you feel nauseated (sick to your stomach). Avoid alcoholic beverages for 24 hours or as instructed. MEDICATIONS You may resume your normal medications unless your doctor tells you otherwise. WHAT YOU CAN EXPECT TODAY Some feelings of bloating in the abdomen. Passage of more gas than usual. Spotting of blood in your stool or on the toilet paper. FOLLOW-UP Your doctor will discuss the results of your test with you. SEEK IMMEDIATE MEDICAL ATTENTION IF: There is more than a spotting of blood in your stool. There is abdominal distention (your abdomen is swollen). There is vomiting. You have a temperature over 101.5 F. There is abdominal pain or discomfort that is severe or gets worse throughout the day. Gastroenterology Upper Endoscopy, Adult, Care After After the procedure, it is common to have a sore throat. It is also common to have: ? Mild stomach pain or discomfort. ? Bloating. ? Nausea. Follow these instructions at home: The instructions below may help you care for yourself at home. Your health care provider may give you more instructions. If you have questions, ask your health care provider. ? If you were given a sedative during the procedure, it can affect you for several hours. Do not drive or operate machinery until your health care provider says that it is safe. ? If you will be going home right after the procedure, plan to have a responsible adult: ? Take you home from the hospital or clinic. You will not be allowed to drive. ? Care for you for the time you are told. ? Follow instructions from your health care provider about what you may eat and drink. ? Return to your normal activities as told by your health care provider. Ask your health care provider what activities are safe for you. ? Take kony-jtx-woekuoe and prescription medicines only as told by your health care provider. Contact a health care provider if you: ? Have a sore throat that lasts longer than one day. ? Have trouble swallowing. ? Have a fever. Get help right away if you: ? Vomit blood or your vomit looks like coffee grounds. ? Have bloody, black, or tarry stools. ? Have a very bad sore throat or you cannot swallow. ? Have difficulty breathing or very bad pain in your chest or abdomen. These symptoms may be an emergency. Get help right away. Call 911. ? Do not wait to see if the symptoms will go away. ? Do not drive yourself to the hospital. Summary ? After the procedure, it is common to have a sore throat, mild stomach discomfort, bloating, and nausea. ? If you were given a sedative during the procedure, it can affect you for several hours. Do not drive until your health care provider says that it is safe. ? Follow instructions from your health care provider about what you may eat and drink. ? Return to your normal activities as told by your health care provider. This information is not intended to replace advice given to you by your health care provider. Make sure you discuss any questions you have with your health care provider. Document Revised: 08/29/2022 Document Reviewed: 08/29/2022 [employer] Patient Education ? 2023 [employer]. Hemorrhoids Hemorrhoids are swollen veins in and around the rectum or the opening of the butt (anus). There aretwo types of hemorrhoids: ? Internal. These occur in the veins just inside the rectum. They may poke through to the outside and become irritated and painful. ? External. These occur in the veins outside the anus. They can be felt as a painful swelling or hard lump near the anus. Most hemorrhoids do not cause severe problems. Often, they can be treated at home with diet and lifestyle deo (more content not included)...[facility]01-23-2023 Hospital Discharge instructions Patient Education 06/25/2022 15:05:14 BMI for Adults BMI for Adults Body mass index (BMI) is a number that is calculated from a person's weight and height. BMI may help to estimate how much of a person's weight is composed of fat. BMI can help identify those who may be at higher risk for certain medical problems. How is BMI used with adults? BMI is used as a screening tool to identify possible weight problems. It is used to check whether aperson is obese, overweight, healthy weight, or underweight. How is BMI calculated? BMI measures your weight and compares it to your height. This can be done either in [place]i ([place] or metric measurements. Note that charts are available to help you find your BMI quickly and easily without having to do these calculations yourself. To calculate your BMI in [place]i ([place] measurements, your health care provider will: 1.Measure your weight in pounds (lb). 2.Multiply the number of pounds by 703. For example, for a person who weighs 180 lb, multiply that number by 703, which equals 126,540. 3.Measure your height in inches (in). Then multiply that number by itself to get a measurement called inches squared. For example, for a person who is 70 in tall, the inches squared measurement is 70 in x 70 in, which equals 4900 inches squared. 4.Divide the total from Step 2 (number of lb x 703) by the total from Step 3 (inches squared): 126,540 4900 = 25.8. This is your BMI. To calculate your BMI in metric measurements, your health care provider will: 1.Measure your weight in kilograms (kg). 2.Measure your height in meters (m). Then multiply that number by itself to get a measurement called meters squared. For example, for a person who is 1.75 m tall, the meters squared measurement is 1.75 m x 1.75 m, which is equal to 3.1 meters squared. 3.Divide the number of kilograms (your weight) by the meters squared number. In this example: 70 3.1 = 22.6. This is your BMI. How is BMI interpreted? To interpret your results, your health care provider will use BMI charts to identify whether you are underweight, normal weight, overweight, or obese. The following guidelines will be used: Underweight: BMI less than 18.5. Normal weight: BMI between 18.5 and 24.9. Overweight: BMI between 25 and 29.9. Obese: BMI of 30 and above. Please note: Weight includes both fat and muscle, so someone with a muscular build, such as an athlete, may havea BMI that is higher than 24.9. In cases like these, BMI is not an accurate measure of body fat. To determine if excess body fat is the cause of a BMI of 25 or higher, further assessments may needto be done by a health care provider. BMI is usually interpreted in the same way for men and women. Why is BMI a useful tool? BMI is useful in two ways: Identifying a weight problem that may be related to a medical condition, or that may increase the risk for medical problems. Promoting lifestyle and diet changes in order to reach a healthy weight. Summary Body mass index (BMI) is a number that is calculated from a person's weight and height. BMI may help to estimate how much of a person's weight is composed of fat. BMI can help identify those who may be at higher risk for certain medical problems. BMI can be measured using Somali measurements or metric measurements. To interpret your results, your health care provider will use BMI charts to identify whether you are underweight, normal weight, overweight, or obese. This information is not intended to replace advice given to you by your health care provider. Make sure you discuss any questions you have with your health care provider. Document Released: 01/29/2005 Document Revised: 05/02/2018 Document Reviewed: 04/02/2018 [employer] Patient Education [employer]. [facility] 11-14-2022 Evaluation note* Encounter Date Diagnosis Assessment Notes Treatment Notes Treatment Clinical Notes Apr, Acute cough (ICD-10 - R05.1) Apr,ronchitis (ICD-10 - J40)Acute bronchitis material was printed Drink plenty fluids, get plenty of rest. Take the amoxicillin with clavulanate and prednisone as prescribed until gone. Use the albuterol inhaler as prescribed as needed for cough or shortness of breath. Follow-up with your family physician if no improvement in 2 to 3 days Apr,ilateral otitis media, unspecified otitis media type (ICD-10 - H66.93) [employer] Other Evaluation + Plan note No data available for this section [facility] Evaluation + Plan note Future Appointments Appointment Date:05/10/2022 09:00:00 AM Scheduled Provider: [facility] Future Appointments Appointment Date:09/24/2022 09:00:00 AM Scheduled Provider:Lara Sanchez MD Location:[facility] Appointment Type:[facility] [place] Evaluation + Plan note Future Appointments Appointment Date:10/22/2022 10:00:00 AM Scheduled Provider:Lara Sanchez MD Location:[facility] Appointment Type: Open Future Scheduled Tests Radiology* MA Mamm Screen w/CAD if perf and 3D Migel 09[facility]24/22 [facility] Future Appointments Appointment Date:02/20/2024 09:30:00 AM Scheduled Provider:Lara Sanchez MD Location:[facility] Appointment Type: Open Appointment Date:02/24/2024 09:30:00 AM Scheduled Provider: Location:[facility] Appointment Type:Surgery [facility] Evaluation + Plan note Future Appointments Appointment Date:05/14/2024 09:00:00 AM Scheduled Provider:Lara Sanchez MD Location:[facility] Appointment Type: Open [facility] evaluation + Plan note Future Appointments Appointment Date:05/14/2024 09:00:00 AM Scheduled Provider:Lara Sanchez MD Location:[facility] Appointment Type: Open Diagnostic Tests Pending * Urine Culture 05/07/24 [facility] evaluation + Plan note Future Appointments Appointment Date:01/07/2025 08:20:00 AM Scheduled Provider:Lara Sanchez MD Location:[facility] Appointment Type:[facility] evaluation + Plan note Future Appointments Appointment Date:01/07/2025 08:20:00 AM Scheduled Provider:Lara Sanchez MD Location:[facility] Appointment Type: Open Diagnostic Tests Pending * PAP [id number] w/ HPV and Genotype rflx 11/18/24 [facility] Evaluation noteNo assessment information available [facility] Work Phone: Evaluation note* Diagnosis Impingement syndrome of left shoulder Arthritis of left shoulder region Morbid obesity (CMS/HCC) Morbid obesity [facility] Diagnosis Impingement syndrome of left shoulder- Primary Arthritis of left shoulder region [facility]* Diagnosis Impingement syndrome of left shoulder- Primary Arthritis of left shoulder region documented [facility]* Diagnosis Impingement syndrome of left shoulder- Primary Arthritis of left shoulder region documented [facility]* Diagnosis Impingement syndrome of left shoulder- Primary Arthritis of left shoulder region Impingement syndrome of right shoulder [facility]* Diagnosis Impingement syndrome of left shoulder- Primary Arthritis of left shoulder region [facility]* Diagnosis Impingement syndrome of left shoulder- Primary Arthritis of left shoulder region [facility]* Diagnosis Impingement syndrome of right shoulder- Primary Neck pain Cervicalgia Cervical radiculopathy Brachial neuritis or radiculitis nos DDD (degenerative disc disease), cervical Degeneration of cervical intervertebral disc Morbid obesity (CMS-HCC) Morbid obesity [facility]* Diagnosis Impingement syndrome of right shoulder- Primary Neck pain Cervicalgia Radiculopathy, cervical Brachial neuritis or radiculitis nos documented in this encounter [facility] Narrative - Reported* Type Description Date Medical History Hypothyroidism Medical Historyseasonal allergiesSurgical HistorycholecystectomySurgical History C section [employer] Other Hospital Discharge instructions No data available for this section [facility] [place] Progress note No data available for this section [facility] [place] Reason for visit Narrative* Consultation (Routine) - AuthorizedSpecialtyDiagnoses / ProceduresReferred By ContactReferred To ContactPhysical Therapy Diagnoses Impingement syndrome of left shoulder Arthritis of left shoulder region Procedures SC OFFICE/OUTPATIENT [facility] 60 MINUTES Alexey Krishnan, DO [address] [place] [address] Phone: tel: fax: Bev Flores, PT [address] [address] Phone: tel: fax: Referral IDStatusReasonStart DateExpiration DateVisits RequestedVisits [id number] Consult and Treat / [facility] for [facility] Narrative* Consultation (Routine) - Authorized SpecialtyDiagnoses / ProceduresReferred By ContactReferred To ContactPhysical Therapy Diagnoses Impingement syndrome of left shoulder Arthritis of left shoulder region Procedures SC OFFICE/OUTPATIENT [facility] 60 MINUTES Alexey Krishnan, DO [address] [place] [address] Phone: tel: fax: Bev Flores, PT [address] [address] Phone: tel: fax: Referral IDStatusReasonStart DateExpiration DateVisits RequestedVisits [id number] Consult and Treat / [facility] HealthcareReason for visit Narrative* Consultation (Routine) - Authorized SpecialtyDiagnoses / ProceduresReferred By ContactReferred To ContactPhysical Therapy Diagnoses Impingement syndrome of left shoulder Arthritis of left shoulder region Impingement syndrome of right shoulder Procedures SC OFFICE/OUTPATIENT [facility] 60 MINUTES Alexey Krishnan, DO [address] [place] [address] Phone: tel: fax: Bev Flores, PT [address] [facility] [address] [place] [address] Phone: tel: fax: Referral IDStatusReasonStart DateExpiration DateVisits RequestedVisits [id number] Consult and Treat [facility] HealthcareReason for visit Narrative* Rehabilitation - Outpatient (Routine) - AuthorizedSpecialtyDiagnoses / ProceduresReferred By ContactReferred To ContactPhysical Therapy Diagnoses Impingement syndrome of right shoulder Neck pain Cervical radiculopathy DDD (degenerative disc disease), cervical Procedures SC OFFICE/OUTPATIENT [facility] 60 MINUTES Alexey Krishnan, DO [address] [facility] [place] [address] Phone: tel: fax: Yvette Manley PT Referral IDStatEmilee DateExpiration DateVisits RequestedVisits [id number] Consult and Treat /[facility] History of Present Illness * Althea Ling MD - 02/01/2020 2:30 PM EDT [facility] Ventral/Incisional Hernia Outpatient Evaluation PATIENT NAME: Marianne Stephenson MRN NUMBER: [id number] DATE OF : 1975 PHONE NUMBER: [phone] PRIMARY CARE PHYSICIAN: Lara Sanchez MD TODAY'S DATE: 02/01/2020 SUBJECTIVE: Chief Complaint: Multiply recurrent incisional hernia. History of Present Illness: The patient is a 44 y.o. female who presents with a hernia in the epigastrium just superior to recent previous repairs. This patient underwent a laparoscopic cholecystectomy several years ago and then developed a trocarsite hernia in the umbilicus. In 2017 she underwent a primary sutured repair of the hernia in the periumbilical area. This reoccurred and he then underwent a laparoscopic intraperitoneal onlay mesh repair May 19, [address] Teran. She has since developed a recurrence apparently along the superior edge of the mesh from prior repair. She may need a complex abdominal wall reconstruction and Dr. Teran referred her to the hernia center for further treatment after evaluating her in his office01/14/2020. The operative report from May describes multiple fascial defects in the midline, likely related to sutures placed at the time of her initial primary repair. She underwent placement ofa 4 x 6 inch oval coated mesh with standard laparoscopic IPOM technique. Marianne tells me that she started to notice this recurrence sometime within the past 4 to 6 weeks. 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 Also she is a cigarette smoker. She tells me that she has been in a weight loss program over the last several months and has successfully lost about 30 pounds. She tells me that currently she smokes about a half a pack of cigarettes per day, which is less than half of what her cigarette consumption was a little over a year ago. She has not had any recent abdominal imaging studies. Her medical comorbidities include obesity, hypothyroidism, hypertension, the smoking history as described above, and a remote history of methamphetamine addiction. Review of Systems: Review of Systems Constitutional: Negative for chills, fever and unexpected weight change. HENT: Negative for congestion, rhinorrhea and voice change. Eyes: Negative for visual disturbance. Gastrointestinal: Positive for abdominal pain (see PAUMA), constipation and nausea. Negative for abdominal distention and vomiting. Genitourinary: Negative for difficulty urinating, dysuria, frequency and urgency. Musculoskeletal: Negative for joint swelling and myalgias. Back pain: with associated right sided sciatica. Neurological: Negative for tremors and weakness. Hematological: Does not bruise/bleed easily. Past Medical History: Past Medical History: Diagnosis Date Blood circulation, collateral Essential hypertension 02/01/2020 Thyroid disease Past Surgical History: Past Surgical History: Procedure Laterality Date ABDOMEN SURGERY SECTION CHOLECYSTECTOMY CHOLECYSTECTOMY, LAPAROSCOPIC 2016 HERNIA REPAIR UMBILICAL HERNIA REPAIR 03/2018 VENTRAL HERNIA REPAIR 05/2019 RECURRENT Family History: Family History Problem Relation Age of Onset High Blood Pressure Mother Diabetes Father Heart Disease Father Social History: Social History Tobacco Use Smoking status: Current Every Day Smoker Packs/day: 1.00 Types: Cigarettes Smokeless tobacco: Never Used Substance Use Topics Alcohol use: Yes Frequency: Never Comment: SOCIALLY Remote history of methamphetamine addiction. Medications: Current Outpatient Medications: levothyroxine (SYNTHROID) 175 MCG tablet, Take 175 mcg by mouth Daily, Disp: , Rfl: loratadine (CLARITIN) 10 MG tablet, Take 10 mg by mouth daily, Disp: , Rfl: naproxen (NAPROSYN) 500 MG tablet, Take 500 mg by mouth 2 times daily (with meals), Disp: , Rfl: Allergies: Patient has no known allergies. OBJECTIVE: Vitals: BP (!) 121/47 Pulse 76 Ht 5' 9 (1.753 m) Wt 254 lb (115.2 kg) SpO2 97% BMI 37.51 kg/m Body mass index is 37.51 kg/m . Physical Exam: GENERAL APPEARANCE: awake, alert, moderately obese 44 y.o. year old female, well-oriented, and in no acute distress ENT: sclerae are clear and white without icterus, oropharynx shows patient has her own teeth with good dental hygiene, no erythema or masses. NECK: Neck is free of lymphadenopathy or thyroid masses. LUNGS: clear, equal breath sounds bilaterally without rales, rhonchi, or wheezes. CARDIO: S1 and S2 are within normal limits, regular rate and rhythm, no murmurs, no jugular venous distention and no ankle edema. ABDOMEN: the abdomen is soft without organomegaly, masses or tenderness. A transverse scar is notedalong the supraumbilical skin fold. No evidence of hernia is seen within the umbilicus. Scars are noted on the left lateral abdomen from previous laparoscopic trocar site insertion without evidence of any trocar site hernias. There is an epigastric hernia which starts about 4 to 5 cm above the umbilicus. This seems to be within the linea alba but biased towards the left side and somewhat triangular in shape. The hernia sac when she stands upright is 10 cm in transverse diameter and 5 cm in vertical diameter. When she is supine this is reducible and the fascial defect appears to be much smaller. The length however is at least 4 cm. A transverse scar is noted in the suprapubic area from remote . INGUINAL: No inguinal hernias are present even on upright examination. GENITOURINARY: Normal external female genitalia. RECTAL: NAREN not preformed EXTREMITIES: no deformity or edema noted. Imaging: No results found. ASSESSMENT: Assessment: 1. Incisional hernia in the midline epigastrium, likely at the superior edge of her prior intraperitoneal onlay mesh repair. She has had 2 prior incisional hernia repairs total. Only one with mesh. The current hernia in the midline will require at a minimum a retrorectus mesh repair. She could require a component separation repair with this would be determined at the time of surgery. Clinically the width of her hernia does not appear to be more than about 4 to 5 cm so it would have to be determined at the time of surgery with a a Sumner Stoppa type retrorectus repair with suffice or whether she may require extension to a full posterior component separation with a TAR Procedure. I russell pictures to illustrate these considerations and illustrate the anatomy of the abdominal wall and recurrent hernia. Given the size of the current hernia I do not think it is mandatory that she have preoperative imaging with a CT scan. 2. Tobacco use. She will need to achieve complete smoking cessation preoperatively to have optimum results in terms of minimizing wound complications and recurrence. I discussed smoking cessation with her at some length. 3. Obesity, patient successfully losing weight over the last several months. Active Hospital Problems Diagnosis Date Noted Recurrent incisional hernia [K43.2] 02/01/2020 Obesity (BMI 35.0-39.9 without comorbidity) [E66.9] 02/01/2020 Tobacco use [Z72.0] 02/01/2020 Other specified hypothyroidism [E03.8] 02/01/2020 Essential hypertension [I10] 02/01/2020 PLAN: 1. I have recommended that she seriously start to work on smoking cessation. Tells me that she already has some nicotine patches at home and has been given a prescription for some type of medication,I believe it is Chantix although she cannot remember the name exactly. I will plan to see her back again in 2 weeks to see what progress she is making with smoking cessation. 2. Given the characteristics of recurrent hernia I do not believe it is mandatory to have preoperative imaging (CT scan) 3. We will plan to go ahead with surgery anytime that it appears that smoking cessation has been achieved. Follow-up: 2 weeks. Electronically signed by Althea Ling MD This note was created with the assistance of a speech-recognition program. Although the intention is to generate a document that actually reflects the content of the visit, no guarantees can be provided that every mistake has been identified and corrected by editing. documented in this encounter* Althea Ling MD - 02/22/2020 2:00 PM EDT [facility] Progress Note PATIENT NAME: Marianne Stephenson MRN NUMBER: [id number] DATE OF : 1975 PHONE NUMBER: [phone] PRIMARY CARE PHYSICIAN: Lara Sanchez MD TODAY'S DATE: 02/22/2020 SUBJECTIVE: Chief Complaint: Recurrent incisional hernia. History of Present Illness: The patient is a 44 y.o. female who presents with a current incisional hernia in the epigastrium just superior to recent previous repairs. First evaluated her 3 weeks ago.She is a cigarette smoker and I recommended that she start working on smoking cessation prior to scheduling her surgery. She has a history of 2 prior hernia repairs. This patient underwent a laparoscopic cholecystectomy several years ago and then developed a trocarsite hernia in the umbilicus. In 2017 she underwent a primary sutured repair of the hernia in the periumbilical area. This reoccurred and he then underwent a laparoscopic intraperitoneal onlay mesh repair May 19, [address] Teran in [place]. Dr. Teran referred her to the hernia center for further treatment after evaluating her in his office 01/14/2020 regarding the recurrent incisional hernia. It was his evaluation that she probably would need a component separation repair. I have reviewed the operative report from May and see that it describes multiple fascial defects in the midline, likely related to sutures placed at the time of her initial primary repair. She underwent placement of a 4 x 6 inch oval coated mesh with standard laparoscopic IPOM technique. Marianne started to notice a recurrence sometime within the past and early to mid December. 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 Symptoms have been present but are moderate. She has never had any episodes of incarceration. The size of the bulge has been steadily increasing. Also she is a cigarette smoker. She tells me that she has been in a weight loss program over the last several months and has successfully lost about 30 pounds. At the time of her initial visit she was smoking half pack of cigarettes per day but was formerly smoking a pack per day for many years. She returns now stating that she has achieved complete smoking cessation for the past 12 days. Withthis she has noted that she has been able to get off of her allergy medicine as she no longer has chronic sinus congestion and drainage. She has not had any productive cough and she has noticed that the tar stains on her fingers have already resolved. She comes at this time regarding repair of her recurrent incisional hernia. Review of Systems: Review of Systems Constitutional: Negative for chills, fever and unexpected weight change. HENT: Negative for congestion, rhinorrhea and sore throat. Eyes: Negative for visual disturbance. Respiratory: Negative for cough, shortness of breath and wheezing. Cardiovascular: Negative for chest pain, palpitations and leg swelling. Gastrointestinal: Positive for abdominal pain (related to hernia). Negative for abdominal distention, blood in stool, nausea and vomiting. Genitourinary: Negative for difficulty urinating, frequency and urgency. Musculoskeletal: Negative for arthralgias and back pain. Neurological: Negative for tremors and weakness. Hematological: Negative for adenopathy. Does not bruise/bleed easily. Past Medical History: Past Medical History: Diagnosis Date Blood circulation, collateral Essential hypertension 02/01/2020 Thyroid disease Past Surgical History: Past Surgical History: Procedure Laterality Date ABDOMEN SURGERY SECTION CHOLECYSTECTOMY CHOLECYSTECTOMY, LAPAROSCOPIC 2016 HERNIA REPAIR UMBILICAL HERNIA REPAIR 03/2018 VENTRAL HERNIA REPAIR 05/2019 RECURRENT Family History: Family History Problem Relation Age of Onset High Blood Pressure Mother Diabetes Father Heart Disease Father Social History: Social History Tobacco Use Smoking status: Current Every Day Smoker Packs/day: 1.00 Types: Cigarettes Smokeless tobacco: Never Used Substance Use Topics Alcohol use: Yes Frequency: Never Comment: SOCIALLY Medications: Current Outpatient Medications: levothyroxine (SYNTHROID) 175 MCG tablet, Take 175 mcg by mouth Daily, Disp: , Rfl: loratadine (CLARITIN) 10 MG tablet, Take 10 mg by mouth daily, Disp: , Rfl: naproxen (NAPROSYN) 500 MG tablet, Take 500 mg by mouth 2 times daily (with meals), Disp: , Rfl: Allergies: Patient has no known allergies. OBJECTIVE: Vitals: BP 108/70 Pulse 60 Ht 5' 9 (1.753 m) Wt 250 lb (113.4 kg) SpO2 98% BMI 36.92 kg/m Body mass index is 36.92 kg/m . Physical Exam: GENERAL APPEARANCE: awake, alert, moderately obese 44 y.o. year old female, well-oriented, and in no acute distress ENT: sclerae are clear and white without icterus, oropharynx shows patient has her own teeth with good dental hygiene, no erythema or masses. NECK: Neck is free of lymphadenopathy or thyroid masses. LUNGS: clear, equal breath sounds bilaterally without rales, rhonchi, or wheezes. CARDIO: S1 and S2 are within normal limits, regular rate and rhythm, no murmurs, no jugular venous distention and no ankle edema. ABDOMEN: the abdomen is soft without organomegaly, masses or tenderness. A transverse scar is notedalong the supraumbilical skin fold. No evidence of hernia is seen within the umbilicus. Scars are noted on the left lateral abdomen from previous laparoscopic trocar site insertion without evidence of any trocar site hernias. There is an epigastric hernia which starts about 4 to 5 cm above the umbilicus. This seems to be within the linea alba but biased towards the left side and somewhat triangular in shape. The hernia sac when she stands upright is 10 cm in transverse diameter and 5 cm in vertical diameter. When she is supine this is reducible and the fascial defect appears to be much smaller. The length however is at least 4 cm. A transverse scar is noted in the suprapubic area from remote . INGUINAL: No inguinal hernias are present even on upright examination. GENITOURINARY: Normal external female genitalia. RECTAL: NAREN not preformed EXTREMITIES: no deformity or edema noted. ASSESSMENT: Assessment: Active Hospital Problems Diagnosis Date Noted Recurrent incisional hernia [K43.2] 02/01/2020 Essential hypertension [I10] 02/01/2020 Obesity (BMI 35.0-39.9 without comorbidity) [E66.9] 02/01/2020 Tobacco use [Z72.0] 02/01/2020 Other specified hypothyroidism [E03.8] 02/01/2020 1. Patient has an incisional hernia as described above. Clinically it is obvious this will need at least a retrorectus mesh repair with posterior rectus sheath component separation. She may require extension to a full posterior component separation with transversus abdominis release. This can be determined at the time of surgery. Since she has achieved smoking cessation we will go ahead with scheduling. Consent form was discussed and signed. She has a good understanding of the proposed abdominal wall reconstruction and its risks. She agrees to the procedure. 2. Tobacco use: The patient has achieved smoking cessation for the past 2 weeks. 3. Obesity. The patient has successfully been losing weight intentionally. Current weight loss now is about 35 pounds over 4 months. PLAN: 1. Plan: Proceed with repair of recurrent incisional hernia with a component separation approach, retrorectus repair versus TAR Procedure. Consent form is been discussed and signed and the patient has a good understanding of the indications, risks, expectations for hospital stay and recovery. 2. The patient was counseled at length about the risks of he Covid-19 during their perioperative period and any recovery window from their procedure. The patient was made aware that he Covid-19 may worsen their prognosis for recovering from their procedure and lend to a higher morbidity and/or mortality risk. All material risks, benefits, and reasonable alternatives including postponing the procedure were discussed. The patient does wish to proceed with the procedure at this time. Electronically signed by Althea Ling MD This note was created with the assistance of a speech-recognition program. Although the intention is to generate a document that actually reflects the content of the visit, no guarantees can be provided that every mistake has been identified and corrected by editing. documented in this encounter* Sonya Doty RN - 03/11/2020 1:33 PM EDT Pt discharged to home per . No distress noted. Script given to patient. Drain teaching done * Althea Ling MD - 03/11/2020 8:09 AM EDT 03/11/2020 8:09 AM Surgery POD #1 T 97.5 P 54 BP 103/63 Awake and alert. Had a lot of difficulty with left sided chest pain yesterday in the early postoperative period. EKG and troponins were normal and chest x-ray was nonspecific although she did have a large amount of gas in the stomach. She also had some nausea yesterday. Nausea has completely subsided. She is tolerating clear liquids well and passing flatus. Left-sided chest pain is much improved although she states she had one episode during the night. Abdominal wound was examined and the dressing was changed. Wound is clean and dry without erythema.The abdomen is very soft. [place]Valadez drains both have light serous drainage. He is voiding well without difficulty. LAB: WBC 11,600 Hgb 13.1 Plt 232,000 Glucose 111 Na 140 K+ 4.7 Mg ++ 1.9 BUN 10 Cr 0.85 IMPRESSION: Doing very well POD #1. No significant bowel manipulation during surgery so it is anticipated that diet can likely be advanced. Home today of tolerating diet. PLAN: Hep lock IV. Regular diet. Home this afternoon if po tolerated. Althea Ling MD * Sonya Doty RN - 03/10/2020 4:03 PM EDT Pt up and ambulating. Tolerating very well and did several laps around unit. * Ermelinda Lopez RN - 03/10/2020 2:40 PM EDT Went to give pt a dose of maalox for pt nurse. Pt said she didn't need it anymore that she is all better since she sat up for lunch. * Shawn Gleason [facility] - 03/10/2020 12:04 PM EDT Patient weight is between 101-149kg. For prophylaxis with Enoxaparin, Pharmacy adjusted the dose toaccount for the patient's increased body weight in accordance with hospital approved protocol. The dose has been changed to 30mg BID. Please contact pharmacy with any concerns @ [phone]. Thank you. Shawn Gleason [facility] 03/10/2020 12:03 PM * Sonya Doty RN - 03/10/2020 12:02 PM EDT Pt admitted to room. Oriented to room, call light and bed mechanics. Side rails up x2. Call light within reach. Orders reviewed. documented in this encounter* Althea Ling MD - 03/16/2020 3:30 PM EDT [facility] Post-op Hernia Note PATIENT NAME: Marianne Stephenson MRN NUMBER: [id number] DATE OF : 1975 PHONE NUMBER: [phone] PRIMARY CARE PHYSICIAN: Lara Sanchez MD TODAY'S DATE: 03/16/2020 SUBJECTIVE: Chief Complaint: First post op visit s/p TAR procedure for repair of recurrent incisional hernia. History of Present Illness: Marianne is 6 days post op following repair of her multiply recurrent incisional hernia with bilateral TAR procedure. She was discharge home on POD #1 with both drains intact. Her final defect was 9 x 7 cm in size on a 30 x 30 cm piece of synthetic polypropylene mesh (Parietene) was placed in the retromuscular space. She reports a continued good comfort level at home. She stopped using all analgesics 2 days ago. She denies any gastrointestinal problems. She is complying with her 10 pound lifting restriction. Drainage from each drain has been about 15 mL/day of thin serous fluid. Date of Surgery: 03/10/2020 Past Medical History: Past Medical History: Diagnosis Date Blood circulation, collateral Hypothyroidism Past Surgical History: Past Surgical History: Procedure Laterality Date SECTION CHOLECYSTECTOMY CHOLECYSTECTOMY, LAPAROSCOPIC 2016 FINGER FRACTURE SURGERY Right screws in middle finger HERNIA REPAIR UMBILICAL HERNIA REPAIR 03/2018 VENTRAL HERNIA REPAIR 05/2019 RECURRENT VENTRAL HERNIA REPAIR N/A 03/10/2020 RECURRENT INCISIONAL HERNIA REPAIR WITH MESH POSTERIOR COMPONENT SEPARATION performed by Althea Hummel MD at [facility] Medications: Current Outpatient Medications: oxyCODONE (ROXICODONE) 5 MG immediate release tablet, Take 1 tablet by mouth every 6 hours as needed for Pain for up to 7 days., Disp: 20 tablet, Rfl: 0 ibuprofen (ADVIL;MOTRIN) 200 MG tablet, Take 400 mg by mouth every 6 hours as needed for Pain, Disp: , Rfl: levothyroxine (SYNTHROID) 175 MCG tablet, Take 175 mcg by mouth Daily, Disp: , Rfl: loratadine (CLARITIN) 10 MG tablet, Take 10 mg by mouth daily, Disp: , Rfl: Allergies: Patient has no known allergies. OBJECTIVE: Vitals: BP 108/73 Temp (!) 71 F (21.7 C) Ht 5' 9 (1.753 m) Wt 243 lb (110.2 kg) SpO2 97% BMI 35.88 kg/m Body mass index is 35.88 kg/m . Physical Exam: GENERAL APPEARANCE: awake, alert, moderately obese 44 y.o. year old female, well-oriented, and in no acute distress ABDOMEN: The abdomen was examined supine and upright. The repair is intact. Her wound is clean and dry. The drains both have thin serous fluid within them. I did remove the retromuscular drain but left the subcutaneous drain in place. I removed half of the surgical ananda. Dressing was reapplied. ASSESSMENT: Assessment: 1. Excellent status just 6 days after repair of a multiply recurrent incisional hernia with bilateral TAR Procedure. Her comfort level is very good and she is compliant with her activity restrictions. 2. There are no signs of any wound complications at this point. 3. The repair is intact to clinical exam both supine and upright. PLAN: 1. She is to continue the current wound care. 2. Continue the 10 pound lifting restriction for full 4 weeks postoperative. 3. Follow-up with me again in 1 week. I anticipate removing the final drain and ananda at that time. Follow-up: 1 week Electronically signed by Althea Ling MD This note was created with the assistance of a speech-recognition program. Although the intention is to generate a document that actually reflects the content of the visit, no guarantees can be provided that every mistake has been identified and corrected by editing. documented in this encounter* Althea Ling MD - 03/23/2020 2:30 PM EDT [facility] Post-op Hernia Note PATIENT NAME: Marianne Stephenson MRN NUMBER: [id number] DATE OF : 1975 PHONE NUMBER: [phone] PRIMARY CARE PHYSICIAN: Lara Sanchez MD TODAY'S DATE: 03/23/2020 SUBJECTIVE: Chief Complaint: Second post op vist. History of Present Illness: Marianne is now just one day shy of being two weeks post op after repair of her recurrent incisional hernia. One subcutaneous drain remains in place. She also still has mostof her ananda. She has no complaints. She states her comfort level is very good. Her major problem is trying to stay within her activity restrictions as she is confronted with many small chores to do around the house and she is eager to get back to them. He has had no wound problems. Date of Surgery: 03/10/2020 Past Medical History: Past Medical History: Diagnosis Date Blood circulation, collateral Hypothyroidism Past Surgical History: Past Surgical History: Procedure Laterality Date SECTION CHOLECYSTECTOMY CHOLECYSTECTOMY, LAPAROSCOPIC 2016 FINGER FRACTURE SURGERY Right screws in middle finger HERNIA REPAIR UMBILICAL HERNIA REPAIR 03/2018 VENTRAL HERNIA REPAIR 05/2019 RECURRENT VENTRAL HERNIA REPAIR N/A 03/10/2020 RECURRENT INCISIONAL HERNIA REPAIR WITH MESH POSTERIOR COMPONENT SEPARATION performed by Althea Hummel MD at [facility] Medications: Current Outpatient Medications: ibuprofen (ADVIL;MOTRIN) 200 MG tablet, Take 400 mg by mouth every 6 hours as needed for Pain, Disp: , Rfl: levothyroxine (SYNTHROID) 175 MCG tablet, Take 175 mcg by mouth Daily, Disp: , Rfl: loratadine (CLARITIN) 10 MG tablet, Take 10 mg by mouth daily, Disp: , Rfl: Allergies: Patient has no known allergies. OBJECTIVE: Vitals: BP 112/75 Pulse 68 Ht 5' 9 (1.753 m) Wt 242 lb (109.8 kg) SpO2 97% BMI 35.74 kg/m Body mass index is 35.74 kg/m . Physical Exam: GENERAL APPEARANCE: awake, alert, moderately obese 44 y.o. year old female, well-oriented, and in no acute distress ABDOMEN: The abdomen was examined supine and upright. There is an excellent contour to the abdomen and the repair is intact. Wound appearance is excellent without any sign of infection or other woundcomplications. The drain has scant amounts of serous drainage within it. Patient states that she only has been emptying it every few days and that there is usually 10 cc or less every time she empties it. I therefore remove the drain. I removed all of the ananda. A large square Band-Aid was placed over the drain site. ASSESSMENT: Assessment: 1. Excellent status now 12 days postoperative following repair of her incisional hernia with posterior component separation and placement of a 30 x 30 cm retromuscular mesh. For level is very good. 2. There are no clinical signs of any wound complications. 3. The repair is intact to clinical exam both supine and upright. PLAN: 1. She is to continue her 10 pound lifting restriction until she is a full 4 weeks postoperative. Iencouraged her however to be active otherwise and reminded her that she may do lower body exercisesaccording to her comfort level without any specific restriction. 2. Routine hygiene measures will suffice for wound care. Follow-up: April 06, 2020 Electronically signed by Althea Ling MD This note was created with the assistance of a speech-recognition program. Although the intention is to generate a document that actually reflects the content of the visit, no guarantees can be provided that every mistake has been identified and corrected by editing. documented in this encounter* Althea Ling MD - 04/06/2020 2:00 PM EST [facility] Post-op Hernia Note PATIENT NAME: Marianne Stephenson MRN NUMBER: [id number] DATE OF : 1975 PHONE NUMBER: [phone] PRIMARY CARE PHYSICIAN: Lara Sanchez MD TODAY'S DATE: 04/06/2020 SUBJECTIVE: Chief Complaint: Four week post op visit History of Present Illness: Marianne is now four weeks post op following repair of a recurrent incisional hernia repaired with bilateral partial T.A.R. procedures and placement of a 30 x 30 cm Parietene mesh in the retrorectus space. She continues to get along very well. She has an excellent comfort level. She has been complying with her 10 pound lifting restriction and is eager to do more. She also feels under pressure to returnto work. She has had no wound problems whatsoever. She is not taking any analgesics. Date of Surgery: 03/10/2020 Past Medical History: Past Medical History: Diagnosis Date Blood circulation, collateral Hypothyroidism Past Surgical History: Past Surgical History: Procedure Laterality Date SECTION CHOLECYSTECTOMY CHOLECYSTECTOMY, LAPAROSCOPIC 2016 FINGER FRACTURE SURGERY Right screws in middle finger HERNIA REPAIR UMBILICAL HERNIA REPAIR 03/2018 VENTRAL HERNIA REPAIR 05/2019 RECURRENT VENTRAL HERNIA REPAIR N/A 03/10/2020 RECURRENT INCISIONAL HERNIA REPAIR WITH MESH POSTERIOR COMPONENT SEPARATION performed by Althea uHmmel MD at [facility] Medications: Current Outpatient Medications: ibuprofen (ADVIL;MOTRIN) 200 MG tablet, Take 400 mg by mouth every 6 hours as needed for Pain, Disp: , Rfl: levothyroxine (SYNTHROID) 175 MCG tablet, Take 175 mcg by mouth Daily, Disp: , Rfl: loratadine (CLARITIN) 10 MG tablet, Take 10 mg by mouth daily, Disp: , Rfl: Allergies: Patient has no known allergies. OBJECTIVE: Vitals: BP 108/75 Pulse 71 Ht 5' 9 (1.753 m) Wt 243 lb (110.2 kg) SpO2 98% BMI 35.88 kg/m Body mass index is 35.88 kg/m . Physical Exam: GENERAL APPEARANCE: awake, alert, moderately obese 44 y.o. year old female, well-oriented, and in no acute distress ABDOMEN: Abdominal exam was performed primarily upright. She has an excellent contour to the abdominal wall with no lateral bulges. Her midline repair is intact and her wound appearance is excellent without any seroma or hematoma formation. The midline wound is softening nicely. ASSESSMENT: Assessment: 1. Excellent result after recurrent incisional hernia repair with retromuscular mesh placement and partial TAR Procedure. Repair is intact and there are no signs of any wound complications. For levelis excellent. PLAN: 1. She may start to increase her activity currently with a 20 pound lifting limit for about a week and then after that as guided by her comfort. 2. Routine hygiene measures will suffice for wound care. 3. I have given her permission to return to work as of April 25. Follow-up: She may follow-up with me now on a as needed basis but she will have long-term outcomes follow-up through the [facility]. Electronically signed by Althea Ling MD This note was created with the assistance of a speech-recognition program. Although the intention is to generate a document that actually reflects the content of the visit, no guarantees can be provided that every mistake has been identified and corrected by editing. documented in this encounter Assessments Diagnosis Recurrent incisional hernia Obesity (BMI 35.0-39.9 without comorbidity) Obesity, unspecified Tobacco use Tobacco use disorder Other specified hypothyroidism Essential hypertension Unspecified essential hypertension Diagnosis Recurrent incisional hernia Essential hypertension Unspecified essential hypertension Obesity (BMI 35.0-39.9 without comorbidity) Obesity, unspecified Tobacco use Tobacco use disorder Other specified hypothyroidism Diagnosis Recurrent incisional hernia Other specified hypothyroidism Obesity (BMI 35.0-39.9 without comorbidity) Obesity, unspecified History of tobacco use Personal history of tobacco use, presenting hazards to health Recurrent ventral hernia Incisional hernia without mention of obstruction or gangrene Diagnosis Postoperative follow-up Follow-up examination, following unspecified surgery Obesity (BMI 35.0-39.9 without comorbidity) Obesity, unspecified History of tobacco use Personal history of tobacco use, presenting hazards to health Essential hypertension Unspecified essential hypertension Diagnosis Essential hypertension Unspecified essential hypertension Postoperative follow-up Follow-up examination, following unspecified surgery Obesity (BMI 35.0-39.9 without comorbidity) Obesity, unspecified Diagnosis Postoperative follow-up Follow-up examination, following unspecified surgery Discharge Instructions * Instructions* Sonya Doty RN - 03/11/2020 [facility] DISCHARGE INSTRUCTIONS ACTIVITY: You may resume being around machinery 2 days after discontinuing narcotic pain medications. Do not drive until off of prescription pain meds. No heavy lifting for 3 weeks. Strict 10 pound limit for four weeks. May then gradually increase activity as comfort allows. DIET: No restrictions. Avoid eating large meals. Spicy foods may not be tolerated for a few days. MEDICATIONS: 1. If you are on any prescription medications, resume as directed. 2. Alternate prescription pain med, one (1) tablet orally every six (6) hours, with ibuprofen 400 mg every six (6) hours (i.e. start with one prescription pain pill, 3 hours later take ibuprofen (2 pills), 3 hours later repeat cycle), as needed for discomfort. 3. Milk of Magnesia, 1-2 tbsp., with water, at bedtime each day for the first 3 days after surgery to prevent constipation. May substitute Miralax if preferred 1 or two 8 ounce glasses of prune juicedaily. ADDITIONAL INSTRUCTIONS: 1. If you have a bandage, remove it daily. Place hand honey liquefier on the ananda and drain sites twice daily. 2. Is okay to wash over the drains and ananda. You may shower or wash the morning after surgery. Do not use lotions, salves or ointments over the skin glue. 3. Some post-operative discomfort is normal. However, if you are having severe pain that is not relieved by the prescribed pain medication, call Dr. Ling. 4. Normally, some swelling and/or bruising at the hernia site may occur in the first week followingsurgery. If you develop painful, red swelling and/or fever, call Dr. Ling . 5. Drains once or twice daily as needed and record the volume of each drain separately. Bring the record of the drainage with you to your first office appointment. If any problems or questions should arise, call Dr. Ling at or [phone]. After4:30PM, Dr. Ling may be contacted through the answering service at [phone] Call [phone] for appointment or for any questions. Make appointment for Friday 03/16. * Attachments The following attachments cannot be sent through Care Everywhere. * Abdominal Hernia Repair: Post-op ([place]) * Surgical Drain Care ([place]) documented in this encounter Advance Directives No Advanced Directives Records FoundLatest Code Status on File Code StatusDate ActivatedDate InactivatedCommentsFull Code03/10/2020 12:07 PMCode StatusDate ActivatedDate InactivatedCommentsFull Code03/10/2020 12:07 PM 03/11/2020 4:44 PM Summary Purpose Family History No Family History Records FoundNo Family History Records FoundNo Family History Records Found No data available for this section No data available for this section No data available for this section No data available for this section No Family History Records FoundNo Family History Records FoundNo Family History Records Found No data available for this section No Family History Records FoundNo Family History Records FoundNo Family History Records FoundNo Family History Records Found No data available for this section No data available for this section No Family History Records FoundNo Family History Records FoundNo Family History Records FoundNo Family History Records Found Additional Source Comments Reason for Visit (unrecogniz ed section and content) StatusReasonSpecialtyDiagnoses / ProceduresReferred By ContactReferred To Contact Diagnoses Recurrent incisional hernia DX RECURRENT INCISIONAL HERNIA Procedures SC REPAIR RECURR INCIS HERNIA,REDUC RECURRENT INCISIONAL HERNIA REPAIR WITH MESH POSTERIOR COMPONENT SEPARATION Althea Ling MD [address] [place] [address] [facility] ReasonCommentsPainReasonOnset DateCommentsPT Initial Eval01fu07/09/2024 fu x207/15/2024fu x302all Back07/17/2024ReasonCommentsFollow-upReason Onset DateCommentsPT CX due to work08/19/2024Reassess for PT/02/25 w/ Bev Flores PT.ReasonCommentsPain INFORMATION SOURCE (unrecogn ized section and content) DATE CREATED AUTHOR 04/07/2020 [facility] DATE CREATED AUTHOR AUTHOR'S ORGANIZ ATION 01/26/2021 [facility] DATE CREATED AUTHOR AUTHOR'S ORGANIZ ATION 05/04/2022 [facility] DATE CREATED AUTHOR AUTHOR'S ORGANIZ ATION 05/12/2024 [facility] DATE CREATED AUTHOR AUTHOR'S ORGANIZ ATION 05/14/2024 [facility] DATE CREATED AUTHOR AUTHOR'S ORGANIZ ATION 05/16/2024 [facility] DATE CREATED AUTHOR AUTHOR'S ORGANIZ ATION 05/17/2024 [facility] DATE CREATED AUTHOR AUTHOR'S ORGANIZ ATION 01/10/2025 [facility] DATE CREATED AUTHOR AUTHOR'S ORGANIZ ATION 02/17/2025 [facility] DATE CREATED AUTHOR AUTHOR'S ORGANIZ ATION 04/02/2025 [facility] DATE CREATED AUTHOR AUTHOR'S ORGANIZ ATION 04/11/2025 [facility] EPIC Patient Care team informatio n (unrecognized section and content) Team Status: Inactive Member Role Status Dates Vikki Walden , SUPA-C Attending Provider Active Team MemberRelationshipSpecialtyStart DateEnd Date Lara Sanchez MD [address] [place] [address] PCP - GeneralFamily Medicine06/10/24Team MemberRelationshipSpecialtyStart DateEnd Date Lara Sanchez MD [address] [place] [address] PCP - GeneralFamily Medicine06/10/24Team MemberRelationshipSpecialtyStart DateEnd Date Lara Sanchez MD [address] [place] [address] PCP - GeneralFamily Medicine06/10/24Team MemberRelationshipSpecialtyStart DateEnd Date Lara Sanchez MD [address] [place] [address] PCP - GeneralFamily Medicine06/10/24Team MemberRelationshipSpecialtyStart DateEnd Date Lara Sanchez MD [address] [place] [address] PCP - GeneralFamily Medicine06/10/24Team MemberRelationshipSpecialtyStart DateEnd Date Lara Sanchez MD [address] [place] [address] PCP - GeneralFamily Medicine06/10/24Team MemberRelationshipSpecialtyStart DateEnd Date Lara Sanchez MD [address] [place] [address] PCP - GeneralFamily Medicine06/10/24Team MemberRelationshipSpecialtyStart DateEnd Date Lara Sanchez MD [address] [place] [address] PCP - GeneralFamily Medicine06/10/24Team MemberRelationshipSpecialtyStart DateEnd Date Lara Sanchez MD [address] [place] [address] PCP - GeneralFamily Medicine06/10/24Team MemberRelationshipSpecialtyStart DateEnd Date Lara Sanchez MD [address] [place] [address] PCP - GeneralFamily Medicine06/10/24Team MemberRelationshipSpecialtyStart DateEnd Date Lara Sanchez MD [address] [place] [address] PCP - GeneralFamily Medicine06/10/24Team MemberRelationshipSpecialtyStart DateEnd Date Lara Sanchez MD [address] [place] [address] PCP - GeneralFamily Medicine06/10/24Team MemberRelationshipSpecialtyStart DateEnd Date Lara Sanchez MD [address] [place] [address] PCP - GeneralFamily Medicine06/10/24Team MemberRelationshipSpecialtyStart DateEnd Date Lara Sanchez MD [address] [place] [address] PCP - GeneralFamily Medicine06/10/24Team MemberRelationshipSpecialtyStart DateEnd Date Lara Sanchez MD [address] [place] [address] PCP - GeneralFamily Medicine06/10/24Team MemberRelationshipSpecialtyStart DateEnd Date Lara Sanchez MD [address] [place] [address] [facility]06/10/24Te MemberRelationshipSpecialtyStart DateEnd Date Lara Sanchez MD [address] [place] [address] [facility]06/10/24Te MemberRelationshipSpecialtyStart DateEnd Date Lara Sanchez MD [address] [place] [address] [facility]06/10/24Te MemberRelationshipSpecialtyStart DateEnd Date Lara Sanchez MD [address] [place] [address] [facility]06/10/24Te MemberRelationshipSpecialtyStart DateEnd Date Lara Sanchez MD [address] [place] [address] [facility]06/10/24 Goals (unrecognized section and content) Goals may be documented in a n alternate section FOR RECORDS PERTAINING TO PATIENTS WHO ARE OR HAVE BEEN ENROLLED IN A CHEMICAL DEPENDENCY/SUBSTANCEABUSE PROGRAM, SOME INFORMATION MAY BE OMITTED. This clinical summary was aggregated from multiple sources. Caution should be exercised in using it in the provision of clinical care. This summary normalizes information from multiple sources, and as a consequence, information in this document may materially change the coding, format and clinical context of patient data. In addition, data may be omitted in some cases. CLINICAL DECISIONS SHOULD BE BASED ON THE PRIMARY CLINICAL RECORDS. [facility] [employer] [facility]. provides no warranty or guarantee of the accuracy or completeness of information in this document.
== END 2025-05-31 16:14 | disposition home or self-care (01) ==
PROVIDERS: Emergency Provider Emergency Medicine; PCP Family Medicine
DX: N39.0 Urinary tract infection, site not specified (principal)
CPT/HCPCS: 81001; 84703; 87086; 87088; 87186; 99283